=== PATIENT | female | born 1985 | race Caucasian/White ===

== ENCOUNTER 2020-09-24 09:36 | Outpatient (CLI) | payer SELFPAY | END 2020-09-24 09:37 | disposition home or self-care (01) | LOC: CHSOUTPT 09:38 | PROVIDERS: PCP Internal Medicine; Visit Provider Internal Medicine Endocrinology, Diabetes & Metabolism | DX: E11.65 Type 2 diabetes mellitus with hyperglycemia (principal) | CPT/HCPCS: 99199 ==

== ENCOUNTER 2021-06-27 14:48 | Outpatient (CLI) | payer OTHER, SELFPAY ==
[2021-06-27 15:34] LABS: SARS-CoV-2 Ag Negative (Negative)
== END 2021-06-27 14:49 | disposition home or self-care (01) ==
LOC: CHSLAB 14:51
PROVIDERS: PCP Internal Medicine; Visit Provider Nurse Practitioner Family
DX: Z20.822 Contact with and (suspected) exposure to COVID-19 (principal)
CPT/HCPCS: 87426; C9803

== ENCOUNTER 2021-08-27 13:25 | Outpatient (CLI) | payer OTHER, SELFPAY ==
[2021-08-27 14:32] LABS: SARS-CoV-2 RNA PCR Negative (Negative)
== END 2021-08-27 13:26 | disposition home or self-care (01) ==
PROVIDERS: PCP Internal Medicine; Visit Provider Internal Medicine
DX: Z20.822 Contact with and (suspected) exposure to COVID-19 (principal)
CPT/HCPCS: 87081; 87880; C9803; U0003; U0005

== ENCOUNTER 2021-09-16 14:32 | Outpatient (CLI) | payer OTHER, SELFPAY ==
--- NOTE | ~2021-09-16 | XR_ITS ---
EXAMINATION: XR chest 2V EXAM DATE: 09/16/2021 14:56 INDICATION: Chest pain, dyspnea, symptoms 3 days. TECHNIQUE: Frontal and lateral projections of the chest obtained and reviewed. Comparison is made to prior examination from 09/29/2017. FINDINGS: The lungs are clear. There are no pleural effusions. The cardiomediastinal silhouette is within normal limits. There is no pneumothorax suspected. The bones and soft tissues are unremarkab le. IMPRESSION: No acute cardiopulmonary findings. Reviewed, dictated and finalized at location A. [facility]
[2021-09-16 14:45] LABS: Basophils Absolute Auto 0.05 K/mm3 (0.00-0.10); Basophils Percent Auto 0.5 % (0.0-1.0); Hematocrit 37.7 % (35.0-49.0); Hemoglobin 13.2 g/dL (12.0-15.0); Immature Granulocyte Absolute 0.03 K/mm3 (0.00-0.00); Immature Granulocyte Percent A 0.3 % (0.0-0.0); Lymphocytes Absolute Auto 1.88 K/mm3 (1.10-4.50); Lymphocytes Percent Auto 18.7 % (18.0-42.0); Mean Corpuscular Hemoglobin 29.9 pg (27.0-31.0); Mean Corpuscular Volume 85.3 fL (78.0-102.0); Mean Platelet Volume 9.8 fl (9.2-11.8); Monocytes Absolute Auto 0.65 K/mm3 (0.10-0.90); Monocytes Percent Auto 6.5 % (2.0-11.0); Neutrophils Absolute Auto 7.2 K/mm3 (1.7-7.2); Platelet Count Result 357 K/mm3 (150-420); Red Blood Count 4.42 M/mm3 (4.20-5.40); Red Cell Distribution Width 12.1 % (11.6-14.4)
[2021-09-16 15:10] LABS: Alanine Aminotransferase 20 U/L (14-59); Alkaline Phosphatase 99 U/L (46-116); Anion Gap 4 mmol/L (8-16); Aspartate Amino Transferase 14 U/L (15-37); Bilirubin,Total 0.2 mg/dL (0.00-1.00); Blood Urea Nitrogen 21 mg/dL (7-18); Calcium 9.2 mg/dL (8.5-10.1); Carbon Dioxide 32 mmol/L (21-32); Chloride 101 mmol/L (98-108); Creatine Kinase 137 U/L (26-192); Estimated Glomerular Filt Rate > 60; Glucose 133 mg/dL (70-99); NT Pro B Type Natriuretic Pept 144 pg/mL (0-125); Osmolality Calculated 289 mOsm/kg (285-295); Potassium 4.4 mmol/L (3.5-5.1); Sodium 137 mmol/L (136-145); Total Protein 7.2 g/dL (6.4-8.2); Troponin I 4.1 ng/L (0.00-60.4)
[2021-09-16 15:11] LABS: D Dimer 0.38 mg/L (0.19-0.50)
== END 2021-09-16 14:33 | disposition home or self-care (01) ==
PROVIDERS: PCP Internal Medicine; Visit Provider Internal Medicine
DX: R07.9 Chest pain, unspecified (principal); R06.00 Dyspnea, unspecified
CPT/HCPCS: 36415; 71046; 80053; 82550; 82553; 83880; 84484; 85025; 85380

== ENCOUNTER 2021-11-17 09:15 | Outpatient (RCR) | payer OTHER, SELFPAY | END 2021-12-29 14:00 | disposition home or self-care (01) | LOC: ANHDMC 09:15 | PROVIDERS: PCP Internal Medicine; Visit Provider Internal Medicine Endocrinology, Diabetes & Metabolism | DX: E11.65 Type 2 diabetes mellitus with hyperglycemia (principal); Z71.89 Other specified counseling | CPT/HCPCS: G0108 ==

== ENCOUNTER 2022-01-27 15:38 | Outpatient (CLI) | payer OTHER, SELFPAY ==
--- NOTE | ~2022-01-27 | US_ITS ---
EXAMINATION: US venous doppler [facility] EXAM DATE: 01/27/2022 16:00 INDICATION: L lower leg swelling. TECHNIQUE: Multiple grayscale, color flow and Doppler images of the left lower extremity deep venous system were obtained and reviewed. There is no prior study for comparison. FINDINGS: The left common femoral, femoral and profunda veins demonstrate normal color flow, respirat ory variation, augmentation and compressibility. Compressibility, color flow confirmed within the le ft popliteal, posterior tibial, peroneal, and greater saphenous veins. IMPRESSION: 1. No left lower extremity deep venous thrombosis. Reviewed, dictated and finalized at location A.
[2022-01-27 15:57] LABS: Basophils Absolute Auto 0.04 K/mm3 (0.00-0.10); Basophils Percent Auto 0.5 % (0.0-1.0); Eosinophils Absolute Auto 0.66 K/mm3 (0.02-0.50); Eosinophils Percent Auto 8.1 % (1.0-6.0); Hematocrit 31.4 % (35.0-49.0); Hemoglobin 10.9 g/dL (12.0-15.0); Immature Granulocyte Absolute 0.03 K/mm3 (0.00-0.00); Immature Granulocyte Percent A 0.4 % (0.0-0.0); Lymphocytes Percent Auto 20.9 % (18.0-42.0); Mean Corpuscular HGB Conc 34.7 g/dL (32.0-36.0); Mean Corpuscular Hemoglobin 30.2 pg (27.0-31.0); Mean Platelet Volume 9.8 fl (9.2-11.8); Monocytes Absolute Auto 0.52 K/mm3 (0.10-0.90); Monocytes Percent Auto 6.4 % (2.0-11.0); Neutrophils Absolute Auto 5.2 K/mm3 (1.7-7.2); Neutrophils Percent Auto 63.7 % (50.0-70.0); Platelet Count Result 338 K/mm3 (150-420); Red Blood Count 3.61 M/mm3 (4.20-5.40); Red Cell Distribution Width 12.4 % (11.6-14.4); White Blood Count 8.1 K/mm3 (4.8-10.8)
[2022-01-27 17:21] LABS: Alanine Aminotransferase 22 U/L (14-59); Albumin Level 2.4 g/dL (3.4-5.0); Alkaline Phosphatase 111 U/L (46-116); Anion Gap 6 mmol/L (8-16); Aspartate Amino Transferase 19 U/L (15-37); Bilirubin,Total 0.2 mg/dL (0.00-1.00); Blood Urea Nitrogen 22 mg/dL (7-18); CRP < 0.5 mg/dL (0.0-0.9); Calcium 8.4 mg/dL (8.5-10.1); Carbon Dioxide 29 mmol/L (21-32); Chloride 104 mmol/L (98-108); Estimated Glomerular Filt Rate > 60; Glucose 170 mg/dL (70-99); Osmolality Calculated 295 mOsm/kg (285-295); Potassium 4.4 mmol/L (3.5-5.1); Sodium 139 mmol/L (136-145); Total Protein 5.9 g/dL (6.4-8.2)
[2022-01-29 11:31] LABS: Ferritin 139 ng/mL (8-252); Iron 50 ug/dL (50-170); Percent Iron Saturation 21 % (12-57)
[2022-02-03 13:50] LABS: Vitamin D 25 Hydroxy 23 ng/mL (30-100)
== END 2022-01-27 15:39 | disposition home or self-care (01) ==
LOC: CHSLAB 15:40
PROVIDERS: PCP Internal Medicine; Visit Provider Nurse Practitioner Family
DX: M79.89 Other specified soft tissue disorders (principal); D64.9 Anemia, unspecified; E58 Dietary calcium deficiency
CPT/HCPCS: 36415; 80053; 82306; 82728; 83540; 83550; 85025; 86140; 93971

== ENCOUNTER 2022-01-29 14:50 | Outpatient (CLI) | payer OTHER, SELFPAY ==
--- NOTE | ~2022-01-29 | XR_ITS ---
XR knee LT 3V DATE: 01/29/2022 15:12 INDICATION: Left knee pain and swelling. No known injury. TECHNIQUE: AP, lateral and sunrise views COMPARISON: None FINDINGS: Very prominent suprapatellar knee joint effusion. There is osteopenia. There is mild loss of height of medial compartment joint space. There is mild particular spurring at all 3 compartments. No radiopaque intra-articular loose body or chondrocalcinosis is noted. IMPRESSION: Very prominent suprapatellar knee joint effusion Moderate osteoarthritis, most prominent at the medial compartment Osteopenia Reviewed, dictated and finalized at location A.
== END 2022-01-29 14:51 | disposition home or self-care (01) ==
LOC: CHSIMG 14:51
PROVIDERS: PCP Internal Medicine; Visit Provider Nurse Practitioner Family
DX: M25.562 Pain in left knee (principal); M79.89 Other specified soft tissue disorders
CPT/HCPCS: 73562

== ENCOUNTER 2022-02-03 08:27 | Outpatient (CLI) | payer OTHER, SELFPAY ==
--- NOTE | ~2022-02-03 | US_ITS ---
EXAMINATION: US right upper quadrant DATE: 02/03/2022 09:04 INDICATION: Anemia TECHNIQUE: Multiple grayscale and Doppler ultrasound images of the abdomen were obtained. COMPARISON: None available FINDINGS: The head and body of the pancreas are normal. The pancreatic tail is obscured by bowel gas. The liver is normal with normal echogenicity and echotexture. No surface nodularity. Normal hepatope dara flow in the main portal vein. The gallbladder is normal with no abnormal wall thickening, pericho lecystic fluid or stones. The normal common bile duct measures 3 mm. There was no sonographic Sandoval sign. IMPRESSION: 1. No sonographic correlate for the patient's symptoms. Reviewed, dictated and finalized at location A.
--- NOTE | ~2022-02-03 | DEXA_ITS ---
Bone Density Report Name: JHON LEE Age: 36 Sex: Female Ethnicity: White Date of : 1985 Indication: hyperparathyroidism; Referring Provider: Brock, Vonda Bright Study: Bone densitometry was performed. Exam Date: February 03, 2022 Accession number: [id number] Bone Density: Region BMD T-score Z-score Classification AP Spine(L1-L4) 1.239 1.9 Femoral Neck (Left) 1.012 1.7 Total Hip (Left) 1.199 2.2 Femoral Neck (Right) 1.033 1.9 Total Hip (Right) 1.218 2.4 Femoral Neck Mean 1.023 1.8 Total Hip Mean 1.208 2.3 World Health Organization criteria for BMD impression classify patients as: Normal (T-score at or above -1.0), Osteopenia (T-score between -1.0 and -2.5), or Osteoporosis (T-score at or below -2.5). 10-year Fracture Risk: FRAX not reported because: Premenopausal woman Clinical Information Provided by Patient: Has used the following medications: Vitamin D Has the following medical conditions: Hyperparathyroidism Patient maximum height was 65 No regular weight bearing exercise Drinks caffeinated beverages Onset of menses at age 9 Premenopausal Number of children 0 Missed period for more than 6 months in a row Impression: The patient's bone mass is within expected range for age, gender and ethnicity. Discussion: BONE DENSITY IS WITHIN EXPECTED LIMITS FOR AGE, SEX AND RACE. Bone density is within expected limits for age, sex and race at all sites measured. The patient should follow a healthful lifestyle (good nutrition with adequate calcium and vitamin D, and appropriate weight-bearing exercise). Follow-Up: Consider repeating this study in 5 years or sooner if there is some new clinical indication. Reported by: Dr. Dk Arango on 02/03/2022 9:21:00 AM. Reviewed, dictated and finalized at location A. [facility]
[2022-02-03 08:57] LABS: Add Urine Microscopic? YES; Appearance Urine Clear (Clear); Bilirubin Urine Negative (Negative); Blood Urine 3+ (Negative); Color Urine Light Yellow (Yellow); Glucose Urine UA 3+ (Negative); Ketones Urine Negative (Negative); Leukocyte Esterase Ur Negative (Negative); Nitrate Urine Negative (Negative); Protein Urine 3+ (Negative); Specific Grav Ur 1.025 (1.010-1.020); Urobilinogen Urine 0.2 mg/dL (0.2-1.0)
[2022-02-03 09:04] LABS: INR 0.9; Partial Thromboplastin Time 28.8 SEC (23.90-30.70); Prothrombin Time 9.7 Seconds (9.50-12.10)
[2022-02-03 09:15] LABS: Squamous Epithelial Cell Urine Moderate /hpf (Few)
[2022-02-03 09:16] LABS: Bacteria Urine Trace /hpf; Budding Yeast Urine Present /hpf; Mucus Urine Few /lpf
[2022-02-03 10:09] LABS: CRP < 0.5 mg/dL (0.0-0.9)
[2022-02-03 10:09] LABS: MALB Creatinine Ratio 286.1 mg/g (0-30); Microalbumin Urine Random > 400.0 mg/L
== END 2022-02-03 08:28 | disposition home or self-care (01) ==
PROVIDERS: PCP Internal Medicine; Visit Provider Nurse Practitioner Family
DX: M81.0 Age-related osteoporosis without current pathological fracture (principal); D64.9 Anemia, unspecified
CPT/HCPCS: 36415; 76705; 77080; 81001; 82043; 85610; 85730; 86140

== ENCOUNTER 2022-03-24 09:56 | Outpatient (CLI) | payer OTHER, SELFPAY ==
[2022-03-24 17:51] LABS: SARS-CoV-2 RNA PCR Negative (Negative)
== END 2022-03-24 09:57 | disposition home or self-care (01) ==
LOC: CHSLAB 10:00
PROVIDERS: PCP Internal Medicine; Visit Provider Family Medicine
DX: Z01.818 Encounter for other preprocedural examination (principal); Z20.822 Contact with and (suspected) exposure to COVID-19
CPT/HCPCS: C9803; U0003; U0005

== ENCOUNTER 2022-05-07 10:15 | Outpatient (RCR) | payer OTHER, SELFPAY | END 2022-05-11 10:32 | disposition home or self-care (01) | LOC: ANHDMC 10:15 | PROVIDERS: PCP Internal Medicine; Visit Provider Internal Medicine Endocrinology, Diabetes & Metabolism | DX: E11.65 Type 2 diabetes mellitus with hyperglycemia (principal); Z71.89 Other specified counseling | CPT/HCPCS: G0108 ==

== ENCOUNTER 2022-05-12 09:00 | Outpatient (CLI) | payer OTHER, SELFPAY ==
--- NOTE | ~2022-05-12 | NM_ITS ---
EXAM: NM gastric emptying study DATE: 05/12/2022 13:54 INDICATION: Nausea TECHNIQUE: A gastric emptying study was performed using the methodology of Kathy BROCK, et al. J Nucl Med 2007; 48:568-572. The patient was given a meal consisting of 2 scrambled eggs labeled with 1.05 mCi Tc-99m sulfur colloid, 2 slices of toast, two packages of jam, and approximately 120 mL of water. Simultaneous anterior and posterior 1-min images of the abdomen were obtained with the patient supin e at multiple time points over a total period of 4 hours. The geometric mean of anterior and posterio r views was determined, and the percentage retention was calculated for each time point. COMPARISON: None. FINDINGS: Gastric retention of the radiotracer-labeled meal was 50%, 22%, and 4% at the 1-hour, 2-hour, and 4-h our time points, respectively. With this technique, apparent rapid gastric emptying is suggested by < 30% gastric retention at 1 hour. Delayed gastric emptying is defined by gastric retention of >90% at 1 hour, >60% retention at 2 hours, or >10% retention at 4 hours. IMPRESSION: 1. Normal gastric emptying. Reviewed, dictated and finalized at location A. IMPRESSION: 1. Normal gastric emptying.
== END 2022-05-12 09:01 | disposition home or self-care (01) ==
PROVIDERS: PCP Internal Medicine; Visit Provider Internal Medicine Endocrinology, Diabetes & Metabolism
DX: R11.0 Nausea (principal)
CPT/HCPCS: 78264; A9541

== ENCOUNTER 2022-05-20 15:17 | Outpatient (CLI) | payer OTHER, SELFPAY ==
[2022-05-20 16:15] LABS: Influenza A QL RT-PCR Negative (Negative); Influenza B QL RT-PCR Negative (Negative); SARS-CoV-2 RNA PCR Positive (Negative)
== END 2022-05-20 15:18 | disposition home or self-care (01) ==
LOC: CHSLAB 15:19
PROVIDERS: PCP Internal Medicine; Visit Provider Internal Medicine
DX: U07.1 COVID-19 (principal); R05.9 Cough, unspecified
CPT/HCPCS: 87502; C9803; U0003; U0005

== ENCOUNTER 2022-09-24 12:30 | Outpatient (RCR) | payer OTHER, SELFPAY | END 2022-12-16 07:41 | disposition home or self-care (01) | LOC: ANHDMC 12:30 | PROVIDERS: PCP Internal Medicine; Visit Provider Internal Medicine Endocrinology, Diabetes & Metabolism | DX: E11.65 Type 2 diabetes mellitus with hyperglycemia (principal) | CPT/HCPCS: 99199 ==

== ENCOUNTER 2022-12-02 12:43 | Outpatient (CLI) | payer OTHER, SELFPAY ==
[2022-12-02 12:58] LABS: Basophils Absolute Auto 0.02 K/mm3 (0.00-0.10); Basophils Percent Auto 0.2 % (0.0-1.0); Eosinophils Absolute Auto 0.17 K/mm3 (0.02-0.50); Hematocrit 33.2 % (35.0-49.0); Immature Granulocyte Absolute 0.03 K/mm3 (0.00-0.00); Immature Granulocyte Percent A 0.3 % (0.0-0.0); Lymphocytes Percent Auto 16.2 % (18.0-42.0); Mean Corpuscular HGB Conc 33.1 g/dL (32.0-36.0); Mean Corpuscular Hemoglobin 29.2 pg (27.0-31.0); Mean Corpuscular Volume 88.1 fL (78.0-102.0); Mean Platelet Volume 9.4 fl (9.2-11.8); Monocytes Absolute Auto 0.38 K/mm3 (0.10-0.90); Monocytes Percent Auto 4.4 % (2.0-11.0); Neutrophils Absolute Auto 6.7 K/mm3 (1.7-7.2); Neutrophils Percent Auto 76.9 % (50.0-70.0); Platelet Count Result 377 K/mm3 (150-420); Red Blood Count 3.77 M/mm3 (4.20-5.40); Red Cell Distribution Width 13.7 % (11.6-14.4); White Blood Count 8.7 K/mm3 (4.8-10.8)
[2022-12-02 13:41] LABS: Alanine Aminotransferase 35 U/L (14-59); Albumin Level 1.8 g/dL (3.4-5.0); Alkaline Phosphatase 88 U/L (46-116); Anion Gap 4 mmol/L (8-16); Aspartate Amino Transferase 43 U/L (15-37); Bilirubin,Total 0.2 mg/dL (0.00-1.00); Blood Urea Nitrogen 24 mg/dL (7-18); Calcium 8.2 mg/dL (8.5-10.1); Carbon Dioxide 30 mmol/L (21-32); Chloride 108 mmol/L (98-108); Estimated Glomerular Filt Rate 41; Free T4 Free Thyroxine 0.96 ng/dL (0.76-1.46); Glucose 114 mg/dL (70-99); Magnesium 1.7 mg/dL (1.8-2.4); NT Pro B Type Natriuretic Pept 2603 pg/mL (0-125); Osmolality Calculated 299 mOsm/kg (285-295); Potassium 4.2 mmol/L (3.5-5.1); Sodium 142 mmol/L (136-145); Thyroid Stimulating Hormone 4.21 uIU/mL (0.36-3.74); Total Protein 5.1 g/dL (6.4-8.2)
[2022-12-02 13:43] LABS: CRP < 0.5 mg/dL (0.0-0.9)
[2022-12-02 15:57] LABS: Add Urine Microscopic? YES; Appearance Urine Slightly Cloudy (Clear); Bilirubin Urine 1+ (Negative); Blood Urine 3+ (Negative); Color Urine Yellow (Yellow); Glucose Urine UA 1+ (Negative); Ketones Urine Trace (Negative); Leukocyte Esterase Ur Negative (Negative); Nitrate Urine Negative (Negative); Protein Urine 3+ (Negative); Specific Grav Ur 1.025 (1.010-1.020); Urobilinogen Urine 0.2 mg/dL (0.2-1.0); pH Urine 6.5 (5.0-8.0)
[2022-12-02 16:00] LABS: Creatinine Urine 270.92 mg/dL (40-278)
[2022-12-02 16:01] LABS: Renal Epithelial Cells Urine Moderate /hpf; Squamous Epithelial Cell Urine Moderate /hpf (Few)
[2022-12-02 16:02] LABS: Bacteria Urine 3+ /hpf
[2022-12-02 16:41] LABS: Ferritin 147 ng/mL (8-252); Iron 47 ug/dL (50-170); Percent Iron Saturation 24 % (12-57)
[2022-12-02 16:46] LABS: MALB Creatinine Ratio 147.6 mg/g (0-30); Microalbumin Urine Random > 400.0 mg/L
[2022-12-02 17:01] LABS: Erythrocyte Sedimentation Rate 55 mm/hr (0-15)
== END 2022-12-02 12:44 | disposition home or self-care (01) ==
PROVIDERS: PCP Internal Medicine; Visit Provider Nurse Practitioner Family
DX: R51.9 Headache, unspecified (principal); M79.89 Other specified soft tissue disorders; E11.9 Type 2 diabetes mellitus without complications; E03.9 Hypothyroidism, unspecified; D64.9 Anemia, unspecified
CPT/HCPCS: 36415; 80053; 81001; 82043; 82728; 83540; 83550; 83735; 83880; 84439; 84443; 85025; 85652; 86140; 87086

== ENCOUNTER 2023-01-01 13:22 | Outpatient (CLI) | payer OTHER, SELFPAY ==
--- NOTE | 2023-01-01 14:19 | ECHO_ITS ---
Patient Info Name: Ailyn Tran Age: 37 years : 1985 Gender: Female Ht: 66 in Wt: 224 lbs BSA: 2.22 m2 HR: 92 bpm BP: 185 / 105 mmHg Technical Quality: Good Exam Date: 01/01/2023 2:29 PM Exam Location: [facility] EM[facility] Patient Status: Outpatient Admit Date: 01/01/2023 Staff Ordering Physician: Carlos Enrique Posada MD Macadam Raker: Jermaine Sandoval RDCS, RT Attending Provider: Carlos Enrique Posada MD Exam Type: CA echo doppler color flow Study Info Indications I50.9 - Heart failure, unspecified Complete two-dimensional, color flow and Doppler transthoracic echocardiogram is performed. Strain analysis performed. Summary 1. Complete two-dimensional, color flow and Doppler transthoracic echocardiogram is performed. 2. Left ventricular chamber dimension is normal. 3. Left ventricular systolic function is normal, estimated at 60-65%. 4. There is moderate concentric increased left ventricular wall thickness. 5. The left ventricular diastolic function is grade I diastolic dysfunction. 6. E/e' 10 is mildly elevated. 7. Global longitudinal strain is abnormal at -14.9%. 8. Left atrial chamber dimension is mildly enlarged. 9. There is mild mitral valve regurgitation. 10. There is trace tricuspid valve regurgitation. Left Ventricle E/e' 10 is mildly elevated. Global longitudinal strain is abnormal at -14.9%. Left ventricular chamber dimension is normal. Left ventricular systolic function is normal, estimated at 60-65%. There is moderate concentric increased left ventricular wall thickness. The left ventricular diastolic function is grade I diastolic dysfunction. Right Ventricle Right ventricular systolic function is normal and with normal TAPSE 2.6 cm. Right ventricular chamber dimension is normal. Left Atria Left atrial chamber dimension is mildly enlarged. Right Atria Right atrial chamber dimension is normal. Aortic Valve The aortic valve is trileaflet. There is no aortic valve stenosis. There is no aortic valve regurgitation. Pulmonic Valve There is no pulmonic regurgitation. Mitral Valve There is no mitral valve stenosis. There is mild mitral valve regurgitation. Tricuspid Valve RVSP is not calculated due to an inadequate TR jet. There is trace tricuspid valve regurgitation. Pericardium/Pleural There is no pericardial effusion. Inferior Vena Cava Normal inferior vena cava with >50% collapse upon inspiration consistent with normal right atrial pressure, 5 mmHg. Aorta The aortic root size at the sinus of Valsalva is normal. Left Ventricular Outflow Tract Name Value Normal LVOT 2D LVOT Diameter 2.0 cm LVOT Doppler LVOT Peak Velocity 95 cm/s LVOT Peak Gradient 4 mmHg LVOT Mean Gradient 2 mmHg LVOT VTI 19 cm LVOT VTI/AV VTI Ratio 0.7 LVOT Stroke Volume 59 ml Mitral Valve Name Value Normal
== END 2023-01-01 13:23 | disposition home or self-care (01) ==
LOC: CHSIMG 13:24
PROVIDERS: PCP Internal Medicine; Visit Provider Internal Medicine
DX: I50.9 Heart failure, unspecified (principal); I51.7 Cardiomegaly
CPT/HCPCS: 93306

== ENCOUNTER 2023-07-03 21:12 | Emergency (ER) | payer OTHER, SELFPAY ==
--- NOTE | ~2023-07-03 | CT_ITS ---
EXAMINATION: CT abdomen pelvis w con DATE: 07/03/2023 22:50 INDICATION: Abdominal pain, nausea and vomiting TECHNIQUE: Computed tomography (CT) of the abdomen and pelvis was performed with 100 CC Omnipaque 350 intravenous contrast. Automated exposure control and iterative reconstruction technique were employe d. Exam dose: 1419.67 mGy-cm total exam DLP. COMPARISON: None. FINDINGS: Minimal groundglass infiltrate and/atelectasis in the lower lung zones. No pleural effusion or pericardial effusion. Heart size is within normal range. The gallbladder is distended but no gallbladder wall thickening or pericholecystic fluid or fat stran ding is noted. No bile duct or pancreatic duct dilatation. 4 mm lateral segment left hepatic cyst. The liver is otherwise unremarkable. No pancreatic mass lesio n or calcification. Normal splenic size. Normal morphology of the adrenal glands. Approximately 1.9 cm right renal cyst no other renal mass lesion is noted. No urinary tract calculus or hydroureteronephrosis. The urinary bladder is unremarkable. There is an IUD within the uterus. 5.5 x 5.3 cm left ovarian cystic lesion. Consider pelvic ultrasound for further evaluation as clinica lly appropriate. Normal appendix. There is prominent of fecal material in the rectum and colon but no bowel obstruction is detected. No intraperitoneal free air. Normal caliber of the abdominal aorta. No intraperitoneal or retroperitoneal or pelvic mass lesion or adenopathy or ascites. The uterus 07/03/2023 Small fat-containing umbilical hernia. No suspicious osteolytic or osteoblastic lesions. IMPRESSION: 5.5 x 5.3 cm left ovarian cystic lesion; consider pelvic ultrasound for further evaluati on as clinically appropriate Normal appendix 4 mm left hepatic cyst 1.9 cm right renal cyst Reviewed, dictated and finalized at Location A. Reviewed, dictated and finalized at location A. IMPRESSION: 5.5 x 5.3 cm left ovarian cystic lesion; consider pelvic ultrasoun d for further evaluation as clinically appropriate Normal appendix 4 mm left hepatic cyst 1.9 cm right renal cyst
[2023-07-03 21:25] VITALS: BP 210/110; PULSE 113; RESP 20; TEMP 37.5; O2SAT 98
--- NOTE | 2023-07-03 21:27 | ECG_ITS ---
Measurements Intervals [place] Rate: 107 P: 26 DC: 131 QRS: 5 QRSD: 87 T: 62 QT: 333 QTc: 444 Interpretive Statements SINUS TACHYCARDIA INCOMPLETE RIGHT BUNDLE BRANCH BLOCK LOW QRS VOLTAGE IN PRECORDIAL LEADS BORDERLINE ECG NO PREVIOUS ECG AVAILABLE FOR COMPARISON Electronically Signed On 07-04-2023 7:12:49 CDT by Harmeet Braga D.O.
[2023-07-03 22:01] LABS: Basophils Absolute Auto 0.06 K/mm3 (0.00-0.10); Basophils Percent Auto 0.5 % (0.0-1.0); Eosinophils Absolute Auto 0.23 K/mm3 (0.02-0.50); Hematocrit 31.6 % (35.0-49.0); Hemoglobin 10.6 g/dL (12.0-15.0); Immature Granulocyte Absolute 0.05 K/mm3 (0.00-0.00); Immature Granulocyte Percent A 0.4 % (0.0-0.0); Lymphocytes Absolute Auto 0.52 K/mm3 (1.10-4.50); Lymphocytes Percent Auto 4.4 % (18.0-42.0); Mean Corpuscular HGB Conc 33.5 g/dL (32.0-36.0); Mean Corpuscular Hemoglobin 29.3 pg (27.0-31.0); Mean Corpuscular Volume 87.3 fL (78.0-102.0); Monocytes Absolute Auto 0.55 K/mm3 (0.10-0.90); Monocytes Percent Auto 4.7 % (2.0-11.0); Neutrophils Absolute Auto 10.3 K/mm3 (1.7-7.2); Platelet Count Result 338 K/mm3 (150-420); Red Blood Count 3.62 M/mm3 (4.20-5.40); Red Cell Distribution Width 12.5 % (11.6-14.4); White Blood Count 11.7 K/mm3 (4.8-10.8)
[2023-07-03] MEDS: ONDANSETRON INJ 4 MG/2 ML VIAL IV PUSH (22:04)
[2023-07-03] MEDS: SODIUM CHLORIDE 0.9% IV 500 ML 999 ML IV CONT (22:05)
[2023-07-03] MEDS: MORPHINE SULFATE (*CRX) 2 MG/ML INJ IV PUSH (22:05)
[2023-07-03 22:15] VITALS: BP 167/94; PULSE 78; RESP 18; O2SAT 96
[2023-07-03 22:18] LABS: Alanine Aminotransferase 28 U/L (14-59); Albumin Level 1.7 g/dL (3.4-5.0); Alkaline Phosphatase 122 U/L (46-116); Anion Gap 8 mmol/L (8-16); Aspartate Amino Transferase 20 U/L (15-37); Bilirubin,Total 0.2 mg/dL (0.00-1.00); Blood Urea Nitrogen 32 mg/dL (7-18); Calcium 8.2 mg/dL (8.5-10.1); Carbon Dioxide 23 mmol/L (21-32); Chloride 104 mmol/L (98-108); Estimated CRCL calculation 46 ml/min; Estimated Glomerular Filt Rate 32; Glucose 212 mg/dL (70-99); Lactic Acid Reflex 0.9 mmol/L (0.4-2.0); Lipase 14 U/L (16-77); Osmolality Calculated 292 mOsm/kg (285-295); Potassium 4.2 mmol/L (3.5-5.1); Sodium 135 mmol/L (136-145); Total Protein 5.7 g/dL (6.4-8.2)
[2023-07-03 22:29] LABS: INR 0.9; Partial Thromboplastin Time 29.4 SEC (23.90-30.70)
[2023-07-03 22:38] LABS: Influenza A QL RT-PCR Negative (Negative); Influenza B QL RT-PCR Negative (Negative); SARS-CoV-2 RNA PCR Negative (Negative)
[2023-07-03 22:40] LABS: RSV RNA, RT-PCR Negative (Negative)
[2023-07-03 22:48] VITALS: BP 178/108
--- NOTE | 2023-07-03 22:52 | ED.ABDPAIN ---
HPI - Abdominal Pain General Chief Complaint: Abdominal Pain Stated Complaint: nausea, vomiting, abd pain Time Seen by Provider: 07/03/23 21:15 Source: patient Mode of arrival: ambulatory Limitations: no limitations History of Present Illness HPI narrative: This is a 37-year-old female with history of diabetes presents with abdominal pain started earlier this morning diffuse with no flank pain no chest pain no shortness of breath no fever chills with nausea with no vomiting no dysuria or hematuria no fever chills. MD elicited complaint: abdominal pain Pertinent past history: none Onset (ago): hour(s) Pain Consistency: intermittent Location: diffuse and periumbilical Severity: moderate Quality: cramping Related Data Home Medications Medication Instructions Recorded Confirmed cholecalciferol (vitamin D3) 10 400 unit PO DAILY 10/05/19 07/03/23 mcg (400 unit) capsule escitalopram oxalate 5 mg tablet 5 mg PO DAILY 10/05/19 07/03/23 semaglutide 1 mg/dose (2 mg/1.5 1 mg subcut WEEKLY 05/27/21 07/03/23 mL) subcutaneous pen injector (Le[employer] Globalempic) atorvastatin 40 mg tablet 40 mg PO DAILY 01/26/23 07/03/23 blood-glucose sensor (Dexcom G6 01/26/23 07/03/23 Sensor device) insulin lispro 100 unit/mL 1 sliding scale dose subcut 01/26/23 07/03/23 subcutaneous cartridge (Humalog USEASDIRECTD U-100 Insulin) levonorgestrel 21 mcg/24 hours (8 1 device intrauterine ONCE 01/26/23 07/03/23 yrs) 52 mg intrauterine device (Mirena) losartan 25 mg tablet 75 mg PO DAILY 01/26/23 07/03/23 metformin 500 mg tablet 500 mg PO BID 01/26/23 07/03/23 torsemide 20 mg tablet 20 mg PO QAM 01/26/23 07/03/23 verapamil 120 mg 24 hr 120 mg PO DAILY 01/26/23 07/03/23 capsule,extended release levothyroxine 112 mcg tablet 112 mcg PO DAILY 07/03/23 07/03/23 (Synthroid) Allergies Allergy/AdvReac Type Severity Reaction Status Date / Time hydrocodone Allergy Severe Other Verified 01/26/23 09:08 tramadol Allergy Severe Vomiting Verified 01/26/23 09:08 ibuprofen AdvReac Intermediate Unknown Verified 01/26/23 09:08 tylenol 3 AdvReac Intermediate Nausea Uncoded 01/26/23 09:08 Review of Systems Review of Systems: All systems reviewed & are unremarkable except as noted in HPI and below PMFSH Past Medical History Medical History Depression Hyperlipidemia Hypertension Kidney disease Thyroid disorder Type II diabetes mellitus Surgical History Surgical History H/O LEEP 08/24/2018 Family History Family History Grandparent Family history of thyroid disease Family history of Alzheimer's disease Diabetes mellitus Family history of Parkinson's disease Father Hypertension Family history of type 2 diabetes mellitus Sibling Family history of attention deficit hyperactivity disorder (ADHD) Social History Social History Smoking status: Never smoker Second hand tobacco smoke exposure: No Alcohol intake: current Alcohol use details: Social Substance use: never Lack of Transportation: No Lack of Food: Never True Concerned About Future Housing: No Difficulty Paying Gas/Electric Bills: No Difficulty Paying for Meds: No Currently Unemployed: No Education: High School Diploma/GED Living arrangements: alone Occupation/Education: occupation Gender identity (if verbalized by the patient): Female Sexual Orientation (if Verbalized by the Patient): Straight or Heterosexual Spiritual care concerns: No Exam Const: General: healthy appearing Nutritional Appearance: well nourished Orientation/consciousness: patient oriented x3 Limitations: no limitations HENMT: Head: normal to inspection Eyes: Conjunctivae: conjunctivae normal Pupils: Equal, round and reactive pupils present EOM: E
--- NOTE | 2023-07-03 23:00 | PC.NURSE ---
Pt resting, call gonzalez at side, awaiting labs and CT results. Pt aware of wait times.
[2023-07-03 23:01] VITALS: BP 170/94
[2023-07-03 23:16] VITALS: BP 157/90; PULSE 78; O2SAT 96
[2023-07-03 23:31] VITALS: BP 176/103
[2023-07-04 00:16] VITALS: BP 167/94; PULSE 74; RESP 20; O2SAT 97
[2023-07-04 01:01] VITALS: BP 157/89; PULSE 85; RESP 18; O2SAT 96
--- NOTE | 2023-07-04 01:02 | PC.NURSE ---
Pt resting, watching TV, reports her pain and cramping is much better. Pt informed on wait time for CT is another 30 min to 1 hr. Pt has ice chips and call gonzalez at side, has no c/o at this time.
[2023-07-04 01:39] VITALS: BP 148/85; PULSE 78; RESP 18; TEMP 36.6; O2SAT 99
[2023-07-05 14:03] LABS: NT Pro B Type Natriuretic Pept 781 pg/mL (0-125)
== END 2023-07-04 01:45 | disposition home or self-care (01) ==
PROVIDERS: Emergency Provider Emergency Medicine; PCP Internal Medicine
DX: N83.201 Unspecified ovarian cyst, right side (principal); R10.9 Unspecified abdominal pain; E11.9 Type 2 diabetes mellitus without complications; E78.5 Hyperlipidemia, unspecified; I10 Essential (primary) hypertension; Z79.899 Other long term (current) drug therapy; Z79.4 Long term (current) use of insulin; Z20.822 Contact with and (suspected) exposure to COVID-19
CPT/HCPCS: 36415; 74177; 80053; 83605; 83690; 83880; 84484; 85025; 85610; 85730; 87637; 93005; 96374; 96375; 99284; J2270; J2405; J7040; Q9967

== ENCOUNTER 2023-07-09 19:11 | Emergency (ER) | payer OTHER, SELFPAY ==
[2023-07-09 19:12] VITALS: BP 160/96; PULSE 98; RESP 18; TEMP 36.9; O2SAT 100
--- NOTE | 2023-07-09 19:19 | ED.WOUNDLAC ---
HPI - Wound/Laceration General Chief Complaint: Wound/Laceration Stated Complaint: Right Toe Wound Time Seen by Provider: 07/09/23 19:19 Source: patient and RN notes reviewed Mode of arrival: ambulatory Limitations: no limitations History of Present Illness Onset (ago): day(s) (2) Extremity Location: Right: foot Place: home Patient tetanus UTD: Yes Context: other ( Had a cut 6 weeks ago) Associated symptoms: none Related Data Home Medications Medication Instructions Recorded Confirmed cholecalciferol (vitamin D3) 10 400 unit PO DAILY 10/05/19 07/09/23 mcg (400 unit) capsule escitalopram oxalate 5 mg tablet 5 mg PO DAILY 10/05/19 07/09/23 semaglutide 1 mg/dose (2 mg/1.5 1 mg subcut WEEKLY 05/27/21 07/09/23 mL) subcutaneous pen injector (Ozempic) atorvastatin 40 mg tablet 40 mg PO DAILY 01/26/23 07/09/23 blood-glucose sensor (Dexcom G6 01/26/23 07/09/23 Sensor device) insulin lispro 100 unit/mL 1 sliding scale dose subcut 01/26/23 07/09/23 subcutaneous cartridge (Humalog USEASDIRECTD U-100 Insulin) levonorgestrel 21 mcg/24 hours (8 1 device intrauterine ONCE 01/26/23 07/09/23 yrs) 52 mg intrauterine device (Mirena) losartan 25 mg tablet 75 mg PO DAILY 01/26/23 07/09/23 metformin 500 mg tablet 500 mg PO BID 01/26/23 07/09/23 torsemide 20 mg tablet 20 mg PO QAM 01/26/23 07/09/23 verapamil 120 mg 24 hr 120 mg PO DAILY 01/26/23 07/09/23 capsule,extended release levothyroxine 112 mcg tablet 112 mcg PO DAILY 07/03/23 07/09/23 (Synthroid) Allergies Allergy/AdvReac Type Severity Reaction Status Date / Time hydrocodone Allergy Severe Other Verified 01/26/23 09:08 tramadol Allergy Severe Vomiting Verified 01/26/23 09:08 ibuprofen AdvReac Intermediate Unknown Verified 01/26/23 09:08 tylenol 3 AdvReac Intermediate Nausea Uncoded 01/26/23 09:08 Review of Systems Review of Systems: All systems reviewed & are unremarkable except as noted in HPI and below Constitutional: Constitutional: Denies chills and Denies fever(s) PMFSH Past Medical History Medical History (Updated 07/09/23 @ 20:41 by Conor Velasquez MD) Body mass index [BMI] 31.0-31.9, adult (03/15/19) Depression Hyperlipidemia Hypertension Kidney disease Thyroid disorder Type II diabetes mellitus Surgical History Surgical History H/O LEEP 08/24/2018 Family History Family History Grandparent Family history of thyroid disease Family history of Alzheimer's disease Diabetes mellitus Family history of Parkinson's disease Father Hypertension Family history of type 2 diabetes mellitus Sibling Family history of attention deficit hyperactivity disorder (ADHD) Social History Social History Smoking status: Never smoker Second hand tobacco smoke exposure: No Alcohol intake: current Alcohol use details: Social Substance use: never Lack of Transportation: No Lack of Food: Never True Concerned About Future Housing: No Difficulty Paying Gas/Electric Bills: No Difficulty Paying for Meds: No Currently Unemployed: No Education: High School Diploma/GED Living arrangements: alone Occupation/Education: occupation Gender identity (if verbalized by the patient): Female Sexual Orientation (if Verbalized by the Patient): Straight or Heterosexual Spiritual care concerns: No Exam Const: General: healthy appearing, no acute distress and alert Nutritional Appearance: well nourished and obese Orientation/consciousness: patient oriented x3 Limitations: no limitations HENMT: Head: normal to inspection Ears: external ears normal Face/Nose/Sinus: Normal external nose present Face and sinus: normal facial exam Mouth: Yes moist mucous membranes Eyes: Conjunctivae: conjunctivae normal Pupils: Equal, round and reactive pupils present EOM: EOMs int
[2023-07-09 19:20] LABS: Glucose Point of Care 131 mg/dl (65-105)
[2023-07-09] MEDS: CEPHALEXIN 500 MG CAPSULE PO (19:40)
== END 2023-07-09 19:43 | disposition home or self-care (01) ==
PROVIDERS: Emergency Provider Emergency Medicine; PCP Internal Medicine
DX: L03.031 Cellulitis of right toe (principal); E78.5 Hyperlipidemia, unspecified; I10 Essential (primary) hypertension; E11.9 Type 2 diabetes mellitus without complications; Z79.4 Long term (current) use of insulin
CPT/HCPCS: 82948; 99283; A9270

== ENCOUNTER 2023-09-28 19:53 | Emergency (ER) | payer OTHER, SELFPAY ==
[2023-09-28 20:05] VITALS: BP 161/103; PULSE 99; RESP 18; TEMP 36.7; O2SAT 100
--- NOTE | 2023-09-28 20:13 | ED.ALLEREA ---
HPI - Allergic Reaction General Chief complaint: Allergic Reaction Stated complaint: Allergic Reaction Time Seen by Provider: 09/28/23 20:12 Source: patient Mode of arrival: ambulatory Limitations: no limitations History of Present Illness HPI narrative: 38 year old female presents to the Emergency Department complaining of allergic reaction. Patient states she took Tylenol #3 for dental pain and has been itching since 3:30 pm. Did not take anything for itching. She had questionable allergy to Tylenol #3 in past (nausea), but this time began itching. She took 2nd dose later to confirm and itching became worse. Denies any difficulty breathing or tightness in throat. Denies rash or hives. Just has itching. MD complaint: allergic reaction Onset (ago): hour(s) (5) Exposure: medication (tylenol #3) Symptoms: itching Treatment prior to arrival: none Previous Allergic Reaction History: other (just had nausea prio) Related Data Home Medications Medication Instructions Recorded Confirmed cholecalciferol (vitamin D3) 10 400 unit PO DAILY 10/05/19 09/28/23 mcg (400 unit) capsule escitalopram oxalate 5 mg tablet 5 mg PO DAILY 10/05/19 09/28/23 semaglutide 1 mg/dose (2 mg/1.5 1 mg subcut WEEKLY 05/27/21 09/28/23 mL) subcutaneous pen injector (Ozempic) atorvastatin 40 mg tablet 40 mg PO DAILY 01/26/23 09/28/23 blood-glucose sensor (Dexcom G6 01/26/23 09/28/23 Sensor device) insulin lispro 100 unit/mL 1 sliding scale dose subcut 01/26/23 09/28/23 subcutaneous cartridge (Humalog USEASDIRECTD U-100 Insulin) levonorgestrel 21 mcg/24 hours (8 1 device intrauterine ONCE 01/26/23 09/28/23 yrs) 52 mg intrauterine device (Mirena) losartan 25 mg tablet 75 mg PO DAILY 01/26/23 09/28/23 metformin 500 mg tablet 500 mg PO BID 01/26/23 09/28/23 torsemide 20 mg tablet 20 mg PO QAM 01/26/23 09/28/23 verapamil 120 mg 24 hr 120 mg PO DAILY 01/26/23 09/28/23 capsule,extended release levothyroxine 112 mcg tablet 112 mcg PO DAILY 07/03/23 09/28/23 (Synthroid) Allergies Allergy/AdvReac Type Severity Reaction Status Date / Time hydrocodone Allergy Severe Other Verified 01/26/23 09:08 tramadol Allergy Severe Vomiting Verified 01/26/23 09:08 ibuprofen AdvReac Intermediate Unknown Verified 01/26/23 09:08 tylenol 3 AdvReac Intermediate Itching Uncoded 09/28/23 20:07 Review of Systems Review of Systems: All systems reviewed & are unremarkable except as noted in HPI and below Constitutional: Constitutional: Reports as per HPI, Reports no additional constitutional complaints, Denies chills and Denies fever(s) Eyes: Eyes: Reports as per HPI and Reports no additional eye complaints ENT: Reports system reviewed and no additional complaints, except as documented Cardiovascular: Cardiovascular: Reports as per HPI, Reports no additional cardiovascular complaints and Denies chest pain Respiratory: Respiratory: Reports as per HPI, Reports no additional respiratory complaints, Denies dyspnea and Denies wheezing Gastrointestinal: Gastrointestinal: Reports as per HPI, Reports no additional gastrointestinal complaints, Denies nausea and Denies vomiting Genitourinary: Genitourinary: Reports no additional female genitourinary complaints Musculoskeletal: Musculoskeletal: Reports no additional musculoskeletal complaints and Denies joint swelling Integumentary/Breasts: Skin/Breast: Reports system reviewed and no additional complaints, except as docu, Reports pruritus, Denies erythema and Denies rash Neurologic: Reports system reviewed and no additional complaints, except as documented Allergic/Immunologic: Allergic/Immunologic: Reports no additional allergic/immunologic complaints, Reports as per HPI, Denies lip swelling, Denies throat swelling, Denies tongue swelling and Denies wheezing PMFSH Past Medical History Medical History Body mass index [BMI] 31.0-31.9, adult (03/15/19) Depressi
[2023-09-28] MEDS: diphenhydrAMINE HCl INJ 50 MG/ML VIAL 100 MG IM (20:22)
[2023-09-28] MEDS: ONDANSETRON HCL ODT 4 MG TABLET PO (20:34)
== END 2023-09-28 20:39 | disposition home or self-care (01) ==
PROVIDERS: Emergency Provider Emergency Medicine; PCP Internal Medicine
DX: L29.9 Pruritus, unspecified (principal); T39.1X5A Adverse effect of 4-Aminophenol derivatives, initial encounter; E78.5 Hyperlipidemia, unspecified; I10 Essential (primary) hypertension; E11.9 Type 2 diabetes mellitus without complications; Z79.899 Other long term (current) drug therapy; Z79.84 Long term (current) use of oral hypoglycemic drugs
CPT/HCPCS: 96372; 99283; A9270; J1200

== ENCOUNTER 2024-07-17 07:51 | Outpatient (CLI) | payer OTHER, SELFPAY ==
--- NOTE | ~2024-07-17 | US_ITS ---
Limited Abdominal Sonogram: Real-time sonographic imaging of the right upper quadrant was performed. Clinical History: Abdominal pain Findings: The liver appears mildly heterogeneous, with no evidence of mass lesion or bile duct dilat ation. Main portal vein demonstrates normal direction of flow. The gallbladder is well distended, and appears normal with no evidence of gallstone or wall thickening. The common bile duct measures 3 mm. The visualized pancreas, aorta, and IVC are unremarkable. Impression: Possible fatty infiltration of liver. Reviewed, dictated and finalized at location M. Impression: Possible fatty infiltration of liver.
== END 2024-07-17 07:52 | disposition home or self-care (01) ==
PROVIDERS: PCP Internal Medicine; Visit Provider Internal Medicine
DX: R10.9 Unspecified abdominal pain (principal)
CPT/HCPCS: 76705

== ENCOUNTER 2024-07-19 18:29 | Observation (INO) | payer OTHER, SELFPAY ==
[2024-07-19] VITALS (20 sets, daily range): BP systolic 149–206; BP diastolic 98–124; PULSE 103–109; RESP 11–32; TEMP 36.3–36.6; O2SAT 97–100; BMI 36.9
--- NOTE | ~2024-07-19 | CT_ITS ---
EXAMINATION: CT abdomen pelvis wo con DATE: 07/19/2024 19:41 INDICATION: right upper quadrant pain TECHNIQUE: Computed tomography (CT) of the abdomen and pelvis was performed without intravenous contr ast. Automated exposure control and iterative reconstruction technique were employed. The dose-length product was 1283.89 mGy-cm. COMPARISON: Coronary artery calcification. FINDINGS: Lower thorax: Unremarkable Liver: Subcentimeter left lobe hypodensity, likely cyst or hemangioma. Biliary/Gallbladder: Gallbladder is distended. No stones or inflammatory change. No bile duct dilatio n. Pancreas: Moderate fatty atrophy, with sparing at the pancreatic tail. Spleen: Normal. Adrenals:No mass. Kidneys: No suspicious mass, obstructing stone, or hydronephrosis. Simple right upper pole cyst. GI tract: No small or large bowel dilation. Normal appendix. Mesentery/Peritoneum: No ascites, mass, or free air. Retroperitoneum: No mass. Pelvis: IUD, in good position. Nearly empty urinary bladder. 6.1 cm left adnexal cystic lesion, likel y ovarian, with internal attending calcifications are. Soft Tissues: Soft tissues and body wall unremarkable. Bones: No acute osseous finding. IMPRESSION: Mild gallbladder hydrops, without inflammatory change or stones. Correlate with biliary labs. Conside r MRCP. Stable 6.1 cm left ovarian cystic lesion, recommend nonemergent outpatient pelvic ultrasound for furt her evaluation. Reviewed, dictated and finalized at location K. IMPRESSION: Mild gallbladder hydrops, without inflammatory change or stones. Correlate with biliary labs. Consider MRCP. Stable 6.1 cm left ovarian cystic lesion, recommend nonemergent outpatient pelv ic ultrasound for further evaluation.
--- NOTE | 2024-07-19 18:38 | PC.NURSE ---
assumed care. report received from christie neville
--- NOTE | 2024-07-19 18:39 | ECG_ITS ---
Test Date: 2024-07-19 18:51:59 Measurements Intervals [place] Rate: 107 P: 43 ME: 161 QRS: -4 QRSD: 86 T: 55 QT: 345 QTc: 462 Interpretive Statements SINUS TACHYCARDIA BASELINE ARTIFACT- AVL ABNORMAL ECG No previous ECG available for comparison Electronically Signed On 07-20-2024 05:35:55 CDT by Harmeet Braga D.O.
--- NOTE | 2024-07-19 18:39 | ED.GENADULT ---
HPI - General Adult General Chief complaint: Abdominal Pain Stated complaint: nausea, vomiting Time Seen by Provider: 07/19/24 18:39 Source: patient Mode of arrival: ambulatory Limitations: no limitations History of Present Illness HPI narrative: 38 years old white female came to the emergency room by private car complaining of right abdominal pain, nausea, vomiting started last night. pain is dull aching radiating to right mid back, no aggravating or relieving factors. Patient unable to take her regular medication because of the constant vomiting. Patient is telling me that she been having abdominal pain for the last 6 months, had gallbladder ultrasound 3 days ago order by her family physician, she denies any fever or chills. She reports history of hypertension, hypothyroidism , diabetes. Patient denied any history of abdominal surgery. Patient does not smoke cigarette, drink occasionally, denied drug use. Unknown last menstrual period. Patient currently on Mirena Patient is telling me that she with black out she take any narcotic. Related Data Home Medications Medication Instructions Recorded Confirmed cholecalciferol (vitamin D3) 10 25 mcg PO QAM 10/05/19 07/19/24 mcg (400 unit) capsule escitalopram oxalate 5 mg tablet 10 mg PO QAM 10/05/19 07/19/24 semaglutide 1 mg/dose (2 mg/1.5 1 mg subcut WEEKLY 05/27/21 07/19/24 mL) subcutaneous pen injector (Ozempic) atorvastatin 40 mg tablet 10 mg PO QHS 01/26/23 07/19/24 blood-glucose sensor (Dexcom G6 01/26/23 02/04/24 Sensor device) levonorgestrel 21 mcg/24 hr (up to 1 device intrauterine ONCE 01/26/23 07/19/24 8 years) 52 mg intrauterine device (Mirena) losartan 25 mg tablet 100 mg PO QAM 01/26/23 07/19/24 metformin 500 mg tablet 500 mg PO BID 01/26/23 07/19/24 torsemide 20 mg tablet 20 mg PO QAM 01/26/23 07/19/24 verapamil 120 mg 24 hr 180 mg PO QAM 01/26/23 07/19/24 capsule,extended release insulin aspart U-100 100 unit/mL 1 sliding scale dose subcut 02/04/24 02/04/24 subcutaneous solution (Novolog USEASDIRECTD U-100 Insulin aspart) atenolol 50 mg tablet 50 mg PO QHS 07/19/24 07/19/24 evolocumab 140 mg/mL subcutaneous 140 mg subcut ONCE 07/19/24 07/19/24 syringe (Repatha Syringe) famotidine 40 mg tablet 40 mg PO BID 07/19/24 07/19/24 levothyroxine 137 mcg tablet 137 mcg PO QAM 07/19/24 07/19/24 (Synthroid) spironolactone 25 mg tablet 25 mg PO BID 07/19/24 07/19/24 Allergies Allergy/AdvReac Type Severity Reaction Status Date / Time hydrocodone Allergy Severe Other Verified 07/19/24 18:45 tramadol Allergy Severe Vomiting Verified 07/19/24 18:45 ibuprofen AdvReac Intermediate Unknown Verified 07/19/24 18:45 tylenol 3 AdvReac Intermediate Itching Uncoded 02/04/24 14:30 Review of Systems Review of Systems: All systems reviewed & are unremarkable except as noted in HPI and below PMFSH Past Medical History Medical History Body mass index [BMI] 31.0-31.9, adult (03/15/19) Depression Hyperlipidemia Hypertension Kidney disease Thyroid disorder Type II diabetes mellitus Surgical History Surgical History H/O LEEP 08/24/2018 Family History Family History Grandparent Family history of thyroid disease Family history of Alzheimer's disease Diabetes mellitus Family history of Parkinson's disease Father Hypertension Family history of type 2 diabetes mellitus Sibling Family history of attention deficit hyperactivity disorder (ADHD) Mother Uterine cancer Social History Social History Smoking status: Never smoker Second hand tobacco smoke exposure: No Alcohol intake: current Alcohol use details: Social Substance use: never Lack of Transportation: No Lack of Food: Never True Concerned About Future Housing: No Dif
[2024-07-19 19:07] LABS: Basophils Absolute Auto 0.05 K/mm3 (0.00-0.10); Basophils Percent Auto 0.5 % (0.0-1.0); Eosinophils Absolute Auto 0.21 K/mm3 (0.02-0.50); Eosinophils Percent Auto 2.1 % (1.0-6.0); Hematocrit 32.7 % (35.0-49.0); Hemoglobin 11.6 g/dL (12.0-15.0); Immature Granulocyte Absolute 0.04 K/mm3 (0.00-0.00); Immature Granulocyte Percent A 0.4 % (0.0-0.0); Lymphocytes Absolute Auto 1.34 K/mm3 (1.10-4.50); Lymphocytes Percent Auto 13.3 % (18.0-42.0); Mean Corpuscular HGB Conc 35.5 g/dL (32-36); Mean Corpuscular Hemoglobin 30.4 pg (27.0-31.0); Mean Corpuscular Volume 85.6 fL (78.0-102.0); Mean Platelet Volume 9.8 fl (9.2-11.8); Monocytes Absolute Auto 0.55 K/mm3 (0.10-0.90); Monocytes Percent Auto 5.5 % (2.0-11.0); Neutrophils Absolute Auto 7.86 K/mm3 (1.70-7.20); Neutrophils Percent Auto 78.2 % (50.0-70.0); Platelet Count Result 390 K/mm3 (150-420); Red Blood Count 3.82 M/mm3 (4.20-5.40); Red Cell Distribution Width 12.3 % (11.6-14.4); White Blood Count 10.1 K/mm3 (4.8-10.8)
[2024-07-19] MEDS: SODIUM CHLORIDE 0.9% IV 1,000 ML 999 ML IV CONT (19:09)
[2024-07-19] MEDS: LABETALOL HCL INJ 100 MG/20 ML VIAL 20 MG IV PUSH ×2 (19:10→20:01)
[2024-07-19] MEDS: ONDANSETRON INJ 4 MG/2 ML VIAL 8 MG IV PUSH (19:10)
[2024-07-19 19:22] LABS: Alanine Aminotransferase 18 U/L (14-59); Albumin Level 2.5 g/dL (3.4-5.0); Alkaline Phosphatase 141 U/L (46-116); Anion Gap 6 mmol/L (4-12); Aspartate Amino Transferase 12 U/L (15-37); Bilirubin,Total 0.2 mg/dL (0.00-1.00); Blood Urea Nitrogen 29 mg/dL (7-18); Calcium 8.7 mg/dL (8.5-10.1); Carbon Dioxide 27 mmol/L (21-32); Chloride 104 mmol/L (98-108); Estimated CRCL calculation 36 ml/min; Estimated Glomerular Filt Rate 25; Glucose 156 mg/dL (70-99); Lipase 18 U/L (16-77); Osmolality Calculated 292 mOsm/kg (285-295); Potassium 4.8 mmol/L (3.5-5.1); Sodium 137 mmol/L (136-145)
--- NOTE | 2024-07-19 19:26 | PC.NURSE ---
patient is resting on stretcher with family at her side. currently being taken to cat scan via wheel chair
--- NOTE | 2024-07-19 19:37 | PC.NURSE ---
returned from ct. placed back on winery cellar hand. parents at the bedside. no needs voiced
--- NOTE | 2024-07-19 20:19 | PC.NURSE ---
patient ambulated to the bathroom to give urine sample.
[2024-07-19 20:28] LABS: Add Urine Microscopic? YES; Appearance Urine Clear (Clear); Bilirubin Urine Negative (Negative); Blood Urine 2+ (Negative); Color Urine Light Yellow (Yellow); Glucose Urine UA 2+ (Negative); Ketones Urine Trace (Negative); Leukocyte Esterase Ur Negative LEU/UL (Negative); Nitrate Urine Negative (Negative); Protein Urine 3+ (Negative); Urobilinogen Urine 0.2 mg/dL (0.2-1.0); pH Urine 6.5 (5.0-8.0)
[2024-07-19 20:33] LABS: WBC Urine 0-3 /hpf (0-3)
[2024-07-19 20:34] LABS: Amorphous Sediment Urine Few; Bacteria Urine 1+ /hpf; Pregnancy On Board Control Positive; Squamous Epithelial Cell Urine Moderate /hpf (Few); Urine Pregnancy Test Negative
--- NOTE | 2024-07-19 20:41 | PC.NURSE ---
Spoke with Salima on med surg floor. Patient to go to room 202. Registration has been notified.
[2024-07-19] MEDS: atenoloL 50 MG TABLET PO (21:09)
[2024-07-19] MEDS: LOSARTAN POTASSIUM 25 MG TABLET PO (21:09)
--- NOTE | 2024-07-19 21:12 | PC.NURSE ---
waiting on pharmacy to verify continuous infusion fluids.
--- NOTE | 2024-07-19 21:16 | PC.NURSE ---
spoke with Mohamud at [facility] to verify ns at 150ml/hr
[2024-07-19] MEDS: SODIUM CHLORIDE 0.9% IV 1,000 ML 150 ML IV CONT (21:23)
--- NOTE | 2024-07-19 21:26 | PC.NURSE ---
patient is resting on stretcher with mother at her side.
--- NOTE | 2024-07-19 22:40 | PC.NURSE ---
38 year old female brought to floor via wheelchair for admission from ER. Patient presented to ER with nausea/vomiting with hypertension. Patient did not take her a.m. blood pressure medication. Patient is alert and oriented x4. Lives alone with family close. Pleasant and cooperative. Able to answer questions. No c/o pain. States nausea is improving and had not been able to hold anything down since yesterday. Patient has dexcom and insulin pump for her diabetes. She has a history of HTN, diabetes, chronic cough, kidney disease. Patient able to ambulate and turn and position self. Patient and mother introduced to room, call light, and safety precautions. Both stated understanding.
--- NOTE | 2024-07-19 23:50 | PC.NURSE ---
Dr. Fernandes notified of pt's elevated blood pressure of 206/119. New orders for Labatelol 20 mg IVP x1.
[2024-07-20] VITALS (13 sets, daily range): BP systolic 157–206; BP diastolic 92–119; PULSE 90–104; RESP 18; TEMP 36.5; O2SAT 95–97
[2024-07-20] MEDS: LABETALOL HCL INJ 100 MG/20 ML VIAL 20 MG IV PUSH (00:12)
--- NOTE | 2024-07-20 00:15 | PC.NURSE ---
Pt given labetelol 20 mg IVP as ordered.
--- NOTE | 2024-07-20 00:45 | PC.NURSE ---
Pt's blood pressure is 157/95 in the right arm and 160/102 in the left arm.
--- NOTE | 2024-07-20 04:08 | PC.NURSE ---
New bag of IV fluid hung and infusing as ordered.
--- NOTE | 2024-07-20 05:25 | PC.NURSE ---
Notified Dr. Fernandes about pt's blood pressure going up. He said to give her AM blood pressure medications at 0700 instead of 0900.
[2024-07-20 05:31] LABS: Hematocrit 28.7 % (35.0-49.0); Hemoglobin 9.7 g/dL (12.0-15.0); Mean Corpuscular HGB Conc 33.8 g/dL (32-36); Mean Corpuscular Hemoglobin 29.5 pg (27.0-31.0); Mean Corpuscular Volume 87.2 fL (78.0-102.0); Platelet Count Result 309 K/mm3 (150-420); Red Blood Count 3.29 M/mm3 (4.20-5.40); Red Cell Distribution Width 12.6 % (11.6-14.4); White Blood Count 8.2 K/mm3 (4.8-10.8)
[2024-07-20 05:32] LABS: Mean Platelet Volume 10.2 fl (9.2-11.8)
[2024-07-20 05:44] LABS: Anion Gap 8 mmol/L (4-12); Blood Urea Nitrogen 28 mg/dL (7-18); Calcium 7.9 mg/dL (8.5-10.1); Carbon Dioxide 24 mmol/L (21-32); Chloride 109 mmol/L (98-108); Estimated CRCL calculation 41 ml/min; Estimated Glomerular Filt Rate 28; Glucose 116 mg/dL (70-99); Osmolality Calculated 298 mOsm/kg (285-295); Potassium 3.7 mmol/L (3.5-5.1); Sodium 141 mmol/L (136-145)
--- NOTE | 2024-07-20 06:40 | PC.NURSE ---
Unable to pull up medications on the Pyxis; Notified Dr. Fernandes and asked him to put in a one time order on the blood pressure medications to be able to give them early at 0700 instead of at 0900. He said he didnt want to do that and said to let pharmacy fix the Pyxis issue instead.
[2024-07-20] MEDS: LEVOTHYROXINE SODIUM 25 MCG TABLET PO (06:45)
[2024-07-20] MEDS: LEVOTHYROXINE SODIUM 112 MCG TABLET 137 MCG PO (06:45)
[2024-07-20] MEDS: VERAPAMIL HCL 180 MG TABLET ER PO (08:00)
[2024-07-20] MEDS: LOSARTAN POTASSIUM 50 MG TABLET 100 MG PO (08:01)
[2024-07-20] MEDS: CHOLECALCIFEROL 400 UNITS TABLET (VIT D) PO (08:01)
[2024-07-20] MEDS: TORSEMIDE 20 MG TABLET PO (08:01)
[2024-07-20] MEDS: ESCITALOPRAM OXALATE 10 MG TABLET PO (08:02)
[2024-07-20] MEDS: FAMOTIDINE 20 MG TABLET 40 MG PO ×2 (08:02→20:29)
[2024-07-20] MEDS: SPIRONOLACTONE 25 MG TABLET PO ×2 (08:02→16:29)
--- NOTE | 2024-07-20 08:02 | PM.SD2 ---
Same Day Admit/Disch: HPI History of Present Illness Chief complaint: CHRONIC ABD PAIN VOMITING THEE Narrative: Ailyn Tran is a 38 year old female 0 years old white female came to the emergency room by private car complaining of right abdominal pain, nausea, vomiting started last night. pain is dull aching radiating to right mid back, no aggravating or relieving factors. Patient unable to take her regular medication because of the constant vomiting. Patient is telling me that she been having abdominal pain for the last 6 months, had gallbladder ultrasound 3 days ago order by her family physician, she denies any fever or chills. She reports history of hypertension, hypothyroidism , diabetes. Patient denied any history of abdominal surgery. Patient does not smoke cigarette, drink occasionally, denied drug use. Unknown last menstrual period. Patient currently on Mirena Patient is telling me that she with black out she take any narcotic. [facility] Past Medical History Medical History Body mass index [BMI] 31.0-31.9, adult (03/15/19) Depression Hyperlipidemia Hypertension Kidney disease Thyroid disorder Type II diabetes mellitus Surgical History Surgical History H/O LEEP 08/24/2018 Family History Family History Grandparent Family history of thyroid disease Family history of Alzheimer's disease Diabetes mellitus Family history of Parkinson's disease Father Hypertension Family history of type 2 diabetes mellitus Sibling Family history of attention deficit hyperactivity disorder (ADHD) Mother Uterine cancer Social History Social History Smoking status: Never smoker Second hand tobacco smoke exposure: No Alcohol intake: current Drinks per week: 0 Alcohol use details: Social Substance use: never Substance use type: does not use Do You Feel Safe in your Home?: Yes Lack of Transportation: No Lack of Food: Never True Current Housing: I Have Housing Concerned About Future Housing: No Difficulty Paying Gas/Electric Bills: No Difficulty Paying for Meds: No Currently Unemployed: No Education: High School Diploma/GED Difficulty w/ Childcare or Family Care: No Living arrangements: alone Occupation/Education: occupation Gender identity (if verbalized by the patient): Female Sexual Orientation (if Verbalized by the Patient): Straight or Heterosexual Spiritual care concerns: No Same Day Admit/Disch: Med Pre-admit Medications Home Medications Medication Instructions Recorded Confirmed Type cholecalciferol (vitamin D3) 10 25 mcg PO QAM 10/05/19 07/19/24 History mcg (400 unit) capsule escitalopram oxalate 5 mg tablet 10 mg PO QAM 10/05/19 07/19/24 History semaglutide 1 mg/dose (2 mg/1.5 1 mg subcut WEEKLY 05/27/21 07/19/24 History mL) subcutaneous pen injector (Ozempic) blood-glucose sensor (Dexcom G6 01/26/23 07/20/24 History Sensor device) levonorgestrel 21 mcg/24 hr (up to 1 device intrauterine ONCE 01/26/23 07/19/24 History 8 years) 52 mg intrauterine device (Mirena) torsemide 20 mg tablet 20 mg PO QAM 01/26/23 07/19/24 History verapamil 120 mg 24 hr 180 mg PO QAM 01/26/23 07/19/24 History capsule,extended release insulin aspart U-100 100 unit/mL 1 sliding scale dose subcut 02/04/24 07/20/24 History subcutaneous solution (Novolog USEASDIRECTD U-100 Insulin aspart) atenolol 50 mg tablet 50 mg PO QHS 07/19/24 07/19/24 History evolocumab 140 mg/mL subcutaneous 140 mg subcut ONCE 07/19/24 07/19/24 History syringe (Repatha Syringe) famotidine 40 mg tablet 40 mg PO BID 07/19/24 07/19/24 History levothyroxine 137 mcg tablet 137 mcg PO QAM 07/19/24 07/19/24 History (Synthroid) spironolactone 25 mg tablet 25 mg PO BID 09
[2024-07-20] MEDS: ONDANSETRON INJ 4 MG/2 ML VIAL IV PUSH ×2 (08:45→20:29)
[2024-07-20] MEDS: PANTOPRAZOLE SODIUM IV 40 MG VIAL IV PUSH (08:47)
[2024-07-20] MEDS: atenoloL 50 MG TABLET PO ×2 (11:34→20:29)
[2024-07-20] MEDS: LORazepam (*CRX) 0.5 MG TABLET PO (11:34)
--- NOTE | 2024-07-20 13:03 | PC.NURSE ---
Patient wanting to go home, states feels her blood pressure is up due to being here, spoke with Provider will discuss case with PMD
[2024-07-20] MEDS: cloNIDine HCL 0.2 MG TABLET PO (13:16)
[2024-07-20] MEDS: ATORVASTATIN 10 MG TABLET PO (20:29)
[2024-07-21] VITALS: BP 199/126; PULSE 90; RESP 17; TEMP 36.4; O2SAT 97
[2024-07-21] MEDS: ONDANSETRON INJ 4 MG/2 ML VIAL IV PUSH (02:10)
--- NOTE | 2024-07-21 03:04 | PC.NURSE ---
Pt c/o back pain and requested pain medication. Called Yessica Sheldon NP to request medication but no answer. Message left on voice mail.
--- NOTE | 2024-07-21 05:44 | PC.NURSE ---
BG level per pt's Dexcom at 00:00 result= 133
--- NOTE | 2024-07-21 06:05 | PC.NURSE ---
Pt's bg level per pt's Dexcom exexuf=[id number]
[2024-07-21] MEDS: LEVOTHYROXINE SODIUM 112 MCG TABLET 137 MCG PO (06:30)
[2024-07-21] MEDS: LEVOTHYROXINE SODIUM 25 MCG TABLET PO (06:54)
[2024-07-21 08:00] VITALS: BP 177/110; PULSE 94; RESP 20; TEMP 36.5; O2SAT 98
--- NOTE | 2024-07-21 08:00 | PC.NURSE ---
Per pt's dexcom, blood sugar is 133. Pt refused fingerstick at this time.
[2024-07-21] MEDS: hydrALAZINE HCL 20 MG/ML VIAL IV PUSH (08:08)
[2024-07-21 08:18] LABS: Hematocrit 30.1 % (35.0-49.0); Hemoglobin 10.2 g/dL (12.0-15.0); Mean Corpuscular HGB Conc 33.9 g/dL (32-36); Mean Corpuscular Hemoglobin 29.5 pg (27.0-31.0); Mean Platelet Volume 9.7 fl (9.2-11.8); Platelet Count Result 350 K/mm3 (150-420); Red Blood Count 3.46 M/mm3 (4.20-5.40); Red Cell Distribution Width 12.7 % (11.6-14.4); White Blood Count 7.8 K/mm3 (4.8-10.8)
[2024-07-21 08:35] LABS: Alanine Aminotransferase 21 U/L (14-59); Albumin Level 2.1 g/dL (3.4-5.0); Alkaline Phosphatase 111 U/L (46-116); Anion Gap 8 mmol/L (4-12); Aspartate Amino Transferase 19 U/L (15-37); Bilirubin,Total 0.2 mg/dL (0.00-1.00); Blood Urea Nitrogen 21 mg/dL (7-18); Calcium 8.2 mg/dL (8.5-10.1); Carbon Dioxide 23 mmol/L (21-32); Chloride 106 mmol/L (98-108); Estimated CRCL calculation 41 ml/min; Estimated Glomerular Filt Rate 29; Glucose 125 mg/dL (70-99); Osmolality Calculated 288 mOsm/kg (285-295); Potassium 4.2 mmol/L (3.5-5.1); Sodium 137 mmol/L (136-145)
[2024-07-21 08:41] LABS: Hemoglobin A1C 9.6 % (<5.7)
[2024-07-21 08:47] VITALS: BP 148/92; PULSE 80
--- NOTE | 2024-07-21 09:34 | PM.DS ---
DS: Admitting Diagnosis Discharge Date 07/21/2024 Admitting Diagnosis enteritis/ hypertensive urgency/ acute on chronic kidney disease DS: Discharge Diagnosis Discharge Diagnosis (1) Acute renal failure superimposed on chronic kidney disease: Code(s): N17.9 - Acute kidney failure, unspecified; N18.9 - Chronic kidney disease, unspecified Status: Acute (2) Abdominal pain: Code(s): R10.9 - Unspecified abdominal pain Status: Acute (3) Vomiting: Code(s): R11.10 - Vomiting, unspecified Status: Acute (4) Hypertension, uncontrolled: Code(s): I10 - Essential (primary) hypertension Status: Acute (5) Enteritis: Code(s): K52.9 - Noninfective gastroenteritis and colitis, unspecified Status: Acute DS: Summary Hospital Course Reason for hospitalization: enteritis/ hypertensive urgency/ acute on chronic kidney disease Hospital Course: Patient was a 38-year-old female who had presented to the emergency department with complaints of nausea vomiting patient was found to be hypertensive as well acute on chronic kidney failure. Patient was admitted for further evaluation and treatment. Patient was given antiemetics and IV fluids CT abdomen showed no acute abnormalities. Patient had overall improvement of nausea and vomiting likely could be secondary to her Ozempic. Patient's acute kidney injury was also treated with IV fluids patient's typical baseline is CR of 1.5-2.00 which trended flat during stay did have some concern due to patient's current medications discontinued her losartan as well as metformin since both can worsening kidney disease. Patient did report she follows with a utility engineer outpatient denied any renal stenosis reports kidney disease was caused from overuse of ibuprofen but there is likely some underlying kidney disease from her hypertension and diabetes. patient also remained hypertensive during her stay systolics greater than 190s she had been given clonidine in the emergency department x1 so it is possible patient had some rebound hypertension as well as hypertension from dehydration. I did discontinue patient's losartan due to kidney function and started her on hydralazine t.i.d. she was given hydralazine IV push x1 with improvement to blood pressure systolics now in the 140s. Patient with overall improvement and felt back to baseline did encourage patient after discharge to monitor her blood pressure and to remain compliant with her Ozempic she is aware she will need a follow-up with her primary care physician for a BP check as well as A1c. patient is ambulatory on own and was discharged to home. Status at Discharge Functional status at discharge: independent ambulation Time Spent with Patient Time attestation: Total time spent providing and/or coordinating discharge services: Time spent: Greater than 30 minutes Exam Narrative: Physical Exam: GENERAL: pleasant Alert and oriented x 3 female. No acute distress. HEENT: Moist mucous membranes. LUNGS: Clear to auscultation bilaterally. No accessory muscle use. CARDIOVASCULAR: Regular rate and rhythm. No murmur. S1-S2 ABDOMEN: Soft, non tenderness and non-distended. No palpable masses. EXTREMITIES: No edema. Non-tender SKIN: No rashes or lesions. Skin warm, dry. NEUROLOGIC: No focal neurological deficits. PSYCHIATRIC: Appropriate mood and affect. Good judgement and insight. DS: Data Data Completed and Pending Labs on day of discharge: Labs from last 24 hours 07/21/24 08:07 WBC 7.8 RBC 3.46 L Hgb 10.2 L Hct 30.1 L MCV 87.0 MCH 29.5 MCHC 33.9 RDW 12.7 Plt Count 350 MPV 9.7 Sodium 137 Potassium 4.2 Chloride 106 Carbon Dioxide 23 Anion Gap 8 BUN 21 H Creatinine 1.94 H Estim Creat Clear Calc 41 Estimated GFR 29 L Glucose 125 H Hemoglobin A1c 9.6 H Calculated Osmolality 288 Calcium 8.2 L Total Bilirubin 0.2 AST 19 ALT 21 Alkaline
[2024-07-21 10:00] VITALS: BP 142/74
[2024-07-21 10:02] VITALS: BP 144/78
[2024-07-21] MEDS: FAMOTIDINE 20 MG TABLET 40 MG PO (10:08)
[2024-07-21] MEDS: VERAPAMIL HCL 180 MG TABLET ER PO (10:08)
[2024-07-21] MEDS: ESCITALOPRAM OXALATE 10 MG TABLET PO (10:08)
[2024-07-21] MEDS: SPIRONOLACTONE 25 MG TABLET PO (10:08)
[2024-07-21] MEDS: TORSEMIDE 20 MG TABLET PO (10:08)
[2024-07-21] MEDS: CHOLECALCIFEROL 400 UNITS TABLET (VIT D) PO (10:08)
[2024-07-21] MEDS: PANTOPRAZOLE SODIUM IV 40 MG VIAL IV PUSH (10:09)
[2024-07-21] MEDS: hydrALAZINE HCL 25 MG TABLET 50 MG PO (11:34)
--- NOTE | 2024-07-21 11:53 | PC.NURSE ---
Per pt's dexcom, blood sugar is 177. Pt refused fingerstick at this time.
[2024-07-21 12:15] VITALS: BP 144/84
--- NOTE | 2024-07-21 12:59 | PC.NURSE ---
discharge instructions reviewed with patient and her dad. All questions answered. Pt ambulated self for discharge.
--- NOTE | 2024-07-24 09:44 | PC.NURSE ---
Discharge call back complete, feeling better, no questions regarding dc instructions
== END 2024-07-21 13:00 | disposition home or self-care (01) ==
LOC: CHSED 21:02 → CHS2ND 21:18
PROVIDERS: Nurse Practitioner Family; Admitting Provider Internal Medicine; Emergency Provider Emergency Medicine; PCP Internal Medicine; Visit Provider Nurse Practitioner Family
DX: I16.0 Hypertensive urgency; I12.9 Hypertensive chronic kidney disease with stage 1 through stage 4 chronic kidney disease, or unspecified chronic kidney disease; E11.22 Type 2 diabetes mellitus with diabetic chronic kidney disease; N18.9 Chronic kidney disease, unspecified; E03.9 Hypothyroidism, unspecified; K52.9 Noninfective gastroenteritis and colitis, unspecified; Z79.4 Long term (current) use of insulin; Z79.84 Long term (current) use of oral hypoglycemic drugs; Z79.85 Long-term (current) use of injectable non-insulin antidiabetic drugs
CPT/HCPCS: 36415; 74176; 80048; 80053; 81001; 81025; 83036; 83605; 83690; 85025; 85027; 93005; 96361; 96374; 96375; 96376; 99285; A9270; G0378; J0360; J2405; J2470; J7030

== ENCOUNTER 2024-07-24 10:19 | Outpatient (CLI) | payer OTHER, SELFPAY ==
--- NOTE | ~2024-07-24 | NM_ITS ---
EXAMINATION: NM hepatobiliary w pharm DATE: 07/24/2024 13:05 INDICATION: Epigastric abdominal pain. COMPARISON: CT abdomen and pelvis 07/19/2024 TECHNIQUE: 6.4 mCi Tc-99m mebrofenin (Choletec) was administered intravenously. Scintigraphic images of the abdomen were obtained for one hour. Then, 2.1 mcg sincalide (Kinevac) IV was administered, an d imaging was continued for 30 minutes. FINDINGS: There is normal clearance of radiotracer from the blood pool. There is homogeneous tracer u ptake by the liver. Activity progresses to the bowel and gallbladder. Gallbladder ejection fraction (GBEF) was 18%. Note that most patients with gallbladder dysfunction have GBEF < 35%, which overlaps with the broad normal range of 10-90%. IMPRESSION: 1. Gallbladder ejection fraction in the lower range of normal. Note that this value overlaps with th e range of values that may be seen with gallbladder dysfunction and/or chronic cholecystitis if there is appropriate clinical correlation. Reviewed, dictated and finalized at location A. IMPRESSION: 1. Gallbladder ejection fraction in the lower range of normal. Note that this value overlaps with the range of values that may be seen with gallbladder dysfu nction and/or chronic cholecystitis if there is appropriate clinical correlatio nBlaine
== END 2024-07-24 10:20 | disposition home or self-care (01) ==
LOC: CHSIMG 10:19
PROVIDERS: PCP Internal Medicine; Visit Provider Internal Medicine
DX: R10.13 Epigastric pain (principal)
CPT/HCPCS: 78227; A9537; J2805

== ENCOUNTER 2024-08-10 14:17 | Outpatient (CLI) | payer OTHER, SELFPAY ==
--- NOTE | ~2024-08-10 | US_ITS ---
EXAMINATION: US pelvic complete w TV DATE: 08/10/2024 14:46 INDICATION: Unspecified ovarian cyst, left side. TECHNIQUE: Multiple transabdominal and transvaginal sonographic images of the pelvis were obtained. COMPARISON: CT abdomen and pelvis 07/19/2024, 07/03/23 FINDINGS: TRANSABDOMINAL ULTRASOUND: The uterus measures 8.0 x 4.8 x 3.1 cm. There is no free fluid in the pelvis. TRANSVAGINAL ULTRASOUND: The endometrial complex measures 4 mm in thickness. There is an intrauterine device in expected posit ion. The right ovary is not visualized. The left ovary measures 6.3 x 6.0 x 6.3 cm. There is a 5.8 cm cyst with peripheral low-level echoes in left ovary. IMPRESSION: 1. 5.8 cm cyst in left ovary, stable from 07/03/23, probably a hemorrhagic cyst. Consider imaging follo w-up or surgical evaluation. Reviewed, dictated and finalized at location A. IMPRESSION: 1. 5.8 cm cyst in left ovary, stable from 07/03/23, probably a hemorrhagic cyst. Consider imaging follow-up or surgical evaluation.
== END 2024-08-10 14:18 | disposition home or self-care (01) ==
LOC: CHSIMG 14:18
PROVIDERS: PCP Internal Medicine; Visit Provider Nurse Practitioner Family
DX: N83.202 Unspecified ovarian cyst, left side (principal)
CPT/HCPCS: 76830; 76856

== ENCOUNTER 2024-08-24 13:53 | Outpatient (CLI) | payer OTHER, SELFPAY ==
[2024-08-24 15:03] LABS: Amylase 44 U/L (30-110)
[2024-08-24 15:04] LABS: Partial Thromboplastin Time 29.9 Seconds (22.3-36.8); Prothrombin Time 13.4 Seconds (11.1-14.7)
== END 2024-08-24 13:54 | disposition home or self-care (01) ==
PROVIDERS: Anesthesiology; PCP Internal Medicine; Visit Provider Surgery
DX: N28.9 Disorder of kidney and ureter, unspecified (principal); K82.8 Other specified diseases of gallbladder; Z01.818 Encounter for other preprocedural examination
CPT/HCPCS: 36415; 82150; 85610; 85730

== ENCOUNTER 2024-08-28 02:02 | Day surgery (SDC) | payer OTHER, SELFPAY ==
--- NOTE | 2024-08-21 11:01 | SUR.PREOP ---
Report to the Outpatient Waiting Room, entrance under the green pavilion located off [facility], at time 1000 on date 08/28/24. Planned Procedure Time: 1200.? Time changes happen often and if your time is changed the preop area will call you the afternoon before. - You and your visitor will be asked to self-screen and do not enter if you have any COVID symptoms. Please call surgeon if you need to reschedule. - A mask is optional within the hospital at this time. Patients may have clear liquids (water, carbonated beverages, clear teas, apple juice) until 3 hours prior to surgery with a maximum of 20 ounces. - NO CLEAR LIQUIDS AFTER 9AM - No food from midnight until time of surgery and no smoking - Infants may have breast milk until 4 hours before surgery, infant formula 6 hours prior to surgery. - Children will be allowed to drink immediately following surgery.? If applicable, please bring a bottle or sippy cup to assist with drinking. Juice, water, soda, and popsicles are readily available.? For infants on formula, please bring formula the day of surgery.? Pacifiers are allowed. Take only the following medications with a SIP of water on the morning of surgery: ESCITALOPRAM,HYDRALAZINE,SYNTHROID,ZOFRAN,VERAPAMIL, INSULIN PUMP INSTRUCTIONS GIVEN: CONTINUE USUAL BASAL RATE UNLESS PATIENT HAS VERY TIGHT CONTROL OR HISTORY OF HYPOGLYCEMIA, THEN SUGGEST DECREASE BASAL RATE BY 01-0.2 UNITS/HOUR. DO NOT DISCONTINUE INSULIN PUMP. DO NOT STOP ANY OF YOUR OTHER PRESCRIPTION MEDICATIONS PRIOR TO SURGERY EXCEPT THE FOLLOWING Medications to discontinue per physician VITAMINS Date to take last dose 08/24 Please no make-up, nail kosovan, hairspray, perfume, deodorant, or body powder the day of surgery.? No jewelry (including any body piercings) or valuables the day of surgery, leave them at home.? Please take a shower or bath the night before, or the morning of, surgery with an antibacterial soap.? Wear comfortable, loose fitting clothing.? Children are encouraged to wear pajamas. - Jewelry must be removed prior to entering the operating room.? Rings and piercings that are not removed may be cut off. - The hospital will not accept responsibility for valuables.? - Please leave all valuables, including medications, at home the day of surgery. If you are going home after surgery, a licensed otr driver must drive you home.? - NO public transportation without another adult if you receive anesthesia. - We recommend that an adult stay with you for 24 hours following discharge. - We also recommend that you do not drive, make important decision, drink alcoholic beverages, or take any drugs that were not prescribed by your health care provider for at least 24 hours after your discharge time. For Pediatric surgeries, we recommend two adults accompany the child home. Follow any additional instructions given to you from your surgeon. Telephone instructions given to JHON LEE and asked if any additional questions and then verbalized understanding. Patient advised to call surgeon office or pre surgery nurse liaison [phone] if any additional questions.
[2024-08-21 11:56] VITALS: BMI 35.0
[2024-08-28] VITALS (14 sets, daily range): BP systolic 91–161; BP diastolic 56–92; PULSE 63–79; RESP 13–20; TEMP 36.2–36.6; O2SAT 63–100
--- NOTE | 2024-08-28 10:10 | P.PNAN_ITS ---
Anes - Initial Pre Proc Eval Procedure: Operation Date: 08/28/24 12:00 Proposed Procedures p Laparoscopic Cholecystectomy, Possible Open - Jason Funez DO Date/Time: 08/28/24 10:10 Surgeon: Jason Funez DO Pre Op Diagnosis: biliary dyskenisia Patient Data Age: 39 Gender: F Height: 1.65 m Weight: 95.5 kg Allergies Allergy/AdvReac Type Severity Reaction Status Date / Time codeine Allergy Severe Vomiting Verified 08/24/24 15:29 hydrocodone Allergy Severe Other Verified 08/24/24 15:29 ibuprofen Allergy Severe Unknown Verified 08/24/24 15:29 tramadol Allergy Severe Vomiting Verified 08/24/24 15:29 Home Medications Medication Instructions Recorded Confirmed Type cholecalciferol (vitamin D3) 10 25 mcg PO QAM 10/05/19 08/27/24 History mcg (400 unit) capsule escitalopram oxalate 5 mg tablet 10 mg PO QAM 10/05/19 08/27/24 History blood-glucose sensor (Dexcom G6 01/26/23 08/27/24 History Sensor device) levonorgestrel 21 mcg/24 hr (up to 1 device intrauterine ONCE 01/26/23 08/27/24 History 8 years) 52 mg intrauterine device (Mirena) torsemide 20 mg tablet 20 mg PO QAM 01/26/23 08/27/24 History verapamil 120 mg 24 hr 180 mg PO QAM 01/26/23 08/27/24 History capsule,extended release insulin aspart U-100 100 unit/mL 1 sliding scale dose subcut 02/04/24 08/27/24 History subcutaneous solution (Novolog USEASDIRECTD U-100 Insulin aspart) atenolol 50 mg tablet 50 mg PO QHS 07/19/24 08/27/24 History famotidine 40 mg tablet 40 mg PO BID 07/19/24 08/27/24 History levothyroxine 137 mcg tablet 137 mcg PO QAM 07/19/24 08/27/24 History (Synthroid) spironolactone 25 mg tablet 25 mg PO DAILY 07/19/24 08/27/24 History ondansetron 8 mg disintegrating 8 mg PO Q8H PRN nausea and 07/20/24 08/27/24 Rx tablet vomiting #14 tabs atorvastatin 40 mg tablet 40 mg PO QHS #30 tabs 07/21/24 08/27/24 Rx hydralazine 25 mg tablet 50 mg PO TID #90 tabs 07/21/24 08/27/24 Rx evolocumab 140 mg/mL subcutaneous 140 mg subcut ONCE 08/07/24 08/27/24 History syringe (Repatha Syringe) cyanocobalamin (vitamin B-12) 1,000 mcg PO DAILY 08/24/24 08/27/24 History 1,000 mcg capsule Patient hx anesthesia problems: none Family hx anesthesia problems: none Results Review: All pre-operative results and documents have been reviewed as part of the pre- operative evaluation. [facility] Past Medical History Medical History Body mass index [BMI] 31.0-31.9, adult (03/15/19) Depression Hyperlipidemia Hypertension Kidney disease Thyroid disorder Type II diabetes mellitus Surgical History Surgical History H/O LEEP 08/24/2018 History of eye surgery Family History Family History Grandparent Family history of thyroid disease Family history of Alzheimer's disease Diabetes mellitus Family history of Parkinson's disease Father Hypertension Family history of type 2 diabetes mellitus Sibling Family history of attention deficit hyperactivity disorder (ADHD) Mother Uterine cancer Social History Social History Smoking status: Never smoker Second hand tobacco smoke exposure: No Alcohol intake: current Drinks per week: 0 Alcohol use details: RARE Substance use: never Substance use type: does not use Do You Feel Safe in your Home?: Yes Lack of Transportation: No Lack of Food: Never True Current Housing: I Have Housing Concerned About Future Housing: No Difficulty Paying Gas/Electric Bills: No Difficulty Paying for Meds: No Currently Unemployed: No Education: High School Diploma/GED Difficulty w/ Childcare or Family Care: No Living arrangements: alone Occupation/Education: occupation Gender identity (if verbalized by the patient): Female Sexual Orientation (if Verbalized by the Patient): Straight or Heterosexual Spiritual care concerns: No Anes - Eval Final PreProcedure Day of Procedure 08/28/24 10:10 Patient weight: obese Heart: regular rate and rhythm Lungs: clear to auscultation Airway: Mallampati scale class II Neurological: alert and oriented Last oral intake: >/= 8 hours ASA classification: III Emergent: no Anesthetic plan: proceed Anesthesia type and monitoring: general ETT and standard monitoring Results Review: All pre-operative results and documents have been reviewed as part of the pre- operative evaluation. Informed Consent: The patient's anesthetic plan and its attendant risks and benefits were discussed with the patient/family/POA. Questions were solicited and answers provided to the satisfaction of the patient/family/POA.
[2024-08-28] MEDS: KETOROLAC 15 MG/ML VIAL (*BKC) IV PUSH (10:30)
[2024-08-28] MEDS: LACTATED RINGERS 1,000 ML 30 ML IV CONT ×2 (10:30→12:31)
[2024-08-28] MEDS: ACETAMINOPHEN 500 MG TABLET 1000 MG PO (10:30)
[2024-08-28 10:56] LABS: Glucose Point of Care 176 mg/dl (65-105)
--- NOTE | 2024-08-28 11:13 | WPDHPUPDATE1 ---
History and Physical Update Update Date/Time: 08/28/24 11:13 History and Physical has been reviewed, including an updated exam of the patient. There are NO changes in the patient's condition. Risks, benefits, and alternatives have been discussed and questions answered. Patient agrees to proceed with procedure.
[2024-08-28 11:30] LABS: BEDSIDEPREGUCG Negative (Negative)
[2024-08-28] MEDS: ceFAZolin 2 GM/D5W 50 ML 2 GM/50 ML BAG IVPB (11:45)
[2024-08-28] MEDS: BUPIVACAINE/EPINEPHRINE 0.5% 50 ML VIAL 20 ML INFILTRATE (12:11)
--- NOTE | 2024-08-28 12:32 | W.PM.PROC2 ---
Procedure Note - Detailed Date of Procedure 08/28/24 Pre-op Diagnosis biliary dyskenisia Post-op Diagnosis Same Procedure Performed Laparoscopic cholecystectomy Surgeon Jason Funez, DO Anesthesia General and Local (0.5% bupivacaine) Indications This is a 39-year-old woman who was complaining of upper abdominal pains intermittently. She had previously had an ultrasound and CT which showed a distended gallbladder but was otherwise normal. HIDA scan was then performed which showed a gallbladder ejection fraction of 18%. Discussions were made with the patient about treatment options and decision was made to proceed with laparoscopic cholecystectomy, possible open. Findings Laparoscopic cholecystectomy was performed. The gallbladder appeared distended there were no other significant abnormalities. The cystic duct appeared normal in size. There were no signs of pericholecystic adhesions or acute cholecystitis. Gallbladder was removed and sent to the lab for pathology. Description of Procedure Procedure as well as risks, benefits, and alternatives were discussed with patient. Written consent was obtained and placed in chart prior to procedure. The patient was brought back to surgical suite. Patient was placed in supine position on operating table. Time-out was done to confirm patient and procedure. Patient was then intubated by the anesthesia department. Abdomen was prepped and draped in sterile fashion using chlorhexidine prep. 0.5% bupivacaine with epinephrine was infiltrated at each site of incision. A 5 millimeter incision was made near the umbilicus, and a 5 millimeter Optiview trocar was advanced through the abdominal layers under direct visualization. Once inside the abdominal cavity, carbon dioxide was insufflated to create a pneumoperitoneum. The camera was inserted and the abdomen was inspected. No immediate abnormalities were identified. The patient was placed in reverse Trendelenburg position and rotated slightly to the left. An 11 millimeter incision was made in the subxiphoid region, and an 11 millimeter trocar was inserted under direct visualization. Two 5 millimeter incisions were made in the right upper quadrant, and two 5 millimeter trocars were inserted under direct visualization. The gallbladder was identified and grasped at the fundus and retracted superiorly. It was then grasped at the infundibulum retracted laterally. Careful dissection around the neck of the gallbladder was performed using blunt dissection with a [place] grasper and hook electrocautery. The cystic duct was identified, and a window was created behind it. The cystic artery was also identified and a window was created behind it. The critical view of safety was identified, visualizing the cystic duct running directly into the neck of the gallbladder, and the cystic artery running directly into the wall of the gallbladder. A 5 millimeter clip corporate securities research analyst was then used to place 2 clips proximally and 1 clip distally on both the cystic duct and cystic artery. They were then both transected using endoscopic scissors. Once safely away from the radha hepatitis, the gallbladder was dissected free from the liver bed using hook electrocautery. Hemostasis was achieved along the way. The gallbladder was removed completely and then removed through the subxiphoid port. The liver bed was then inspected. Hemostasis appeared adequate, and our clips appeared secure. The area was gently irrigated with sterile saline. No other abnormalities were seen. The patient was flattened out in bed, and 1 final inspection was made around the abdominal cavity. The subxiphoid port was removed, and a Kleber Janell cone was used to approximate the fascia with an 0-Vicryl simple interrupted suture. The remaining ports were then removed under direct visualization, the camera was removed, and the pneumoperitoneum was released. The skin of the incisions was approximated using 4-0 Monocryl subcuticular sutures. Exofin glue was applied on top. The patient was then awakened from anesthesia, extubated, and transferred to recovery. Estimated Blood Loss 5 Pathology Yes (Gallbladder) Complications No immediate complications Condition Stable Disposition Same day [facility] Billing Surgery - Charge Forward: Surgery Billing
[2024-08-28 12:40] LABS: Glucose Point of Care 180 mg/dl (65-105)
[2024-08-28] MEDS: ONDANSETRON INJ 4 MG/2 ML VIAL IV PUSH (13:00)
[2024-08-28] MEDS: diphenhydrAMINE HCl INJ 50 MG/ML VIAL 12.5 MG IV PUSH ×2 (13:13→13:23)
--- NOTE | 2024-08-28 13:14 | SUR.PHASEI ---
1310 - MD Boogie notified (anesthesia). Pt still nauseated after ordered Zofran. New orders for RN to give 12.5mg Benadryl IVP. Can repeat once to max dose of 25mg. LR infusing.
[2024-08-28] MEDS: fentaNYL CITRATE INJ (*CRX) 100 MCG/2 ML VIAL 25 MCG IV PUSH (13:35)
[2024-08-28] MEDS: SCOPOLAMINE 1 MG PATCH 1 PATCH TRANSDERM (14:01)
== END 2024-08-28 15:05 | disposition home or self-care (01) ==
PROVIDERS: Anesthesiology; PCP Internal Medicine; Visit Provider Surgery
PROC: 0FT44ZZ Resection of Gallbladder, Percutaneous Endoscopic Approach (ICD-10-PCS; CPT 47562; principal; 2024-08-28 12:00)
DX: K80.20 Calculus of gallbladder without cholecystitis without obstruction (principal); N28.9 Disorder of kidney and ureter, unspecified; E78.5 Hyperlipidemia, unspecified; I10 Essential (primary) hypertension; E11.9 Type 2 diabetes mellitus without complications; F32.A Depression, unspecified; E66.9 Obesity, unspecified; Z68.36 Body mass index [BMI] 36.0-36.9, adult; Z79.4 Long term (current) use of insulin; Z98.890 Other specified postprocedural states; Z80.49 Family history of malignant neoplasm of other genital organs
CPT/HCPCS: 47562; 82948; 88304; A9270; J0690; J1200; J1885; J2003; J2250; J2405; J2704; J3010; J7030; J7120

== ENCOUNTER 2024-10-09 13:46 | Outpatient (CLI) | payer OTHER, SELFPAY ==
--- NOTE | ~2024-10-09 | US_ITS ---
EXAMINATION: US pelvic complete w TV INDICATION: Ovarian cyst. Comparison:Ultrasound dated 08/10/2024 TECHNIQUE: Multiple transabdominal and endovaginal sonographic images of the pelvis performed. FINDINGS: The uterus measures 5.8 x 3.6 cm. There is an IUD present in the endometrium.. The endometr ial complex measures 7 mm. There is a small hypoechoic area within the cervix measuring up to 1.6 cm, likely a complicated nabothian cysts. The right ovary measures 4.4 x 2.8 x 2.7 cm and the left ovary measures 6 x 5 x 4.9 cm. There is a le ft ovarian cyst measuring 5.5 x 4.5 x 4.5 cm without significant change from prior examination. Unabl e to detect flow in the left ovary. There is no free fluid in the pelvis. There are no abnormal mass es seen on either side. IMPRESSION: 1. Stable 5.5 cm left ovarian simple cyst. Reviewed, dictated and finalized at location B. ACE COMBUSTION ANALYST
== END 2024-10-09 13:47 | disposition home or self-care (01) ==
PROVIDERS: PCP Internal Medicine; Visit Provider Obstetrics & Gynecology
DX: N83.202 Unspecified ovarian cyst, left side (principal)
CPT/HCPCS: 76830; 76856

== ENCOUNTER 2024-12-15 10:21 | Outpatient (CLI) | payer OTHER, SELFPAY ==
--- NOTE | 2024-12-15 10:35 | ECG_ITS ---
Test Date: 2024-12-15 10:41:51 Measurements Intervals [place] Rate: 78 P: 24 CT: 158 QRS: 0 QRSD: 91 T: 74 QT: 376 QTc: 430 Interpretive Statements SINUS RHYTHM INCOMPLETE RIGHT BUNDLE BRANCH BLOCK VOLTAGE CRITERIA FOR LVH BASELINE ARTIFACT- I, II, III, AVR, AVL, AVF BORDERLINE ECG Compared to ECG 07/19/2024 18:51:59 HEART RATE HAS DECREASED Electronically Signed On 12-15-2024 11:19:20 GARAGE HAND by Harmeet Braga D.O.
--- OUTSIDE RECORDS SUMMARY | 2024-12-15 10:59 | XMS_ITS | Clinical Summary ---
Author Organization [facility] Address [facility] [place] [address] Care Team Providers Care Support Team Assoc Name Role Phone Carlos Enrique Posada MD Primary Care Provider [phone] Allergies Active Allergy Reactions Criticality Noted Date Comments Hydrocodone-Acetamino phen Other (see comment) 11/07/2021 Patient passes out Tramadol GI Upset 11/07/2021 Medications atenolol 50 MG tablet Take 50 mg by mouth daily. Active atorvastatin 20 MG tablet Take 20 mg by mouth daily. 09/15/2021 Active Cholecalciferol (VITAMIN D) 50 MCG (1999 UT) Cap Take 1 tablet by mouth daily. Active Continuous Blood Gluc Grain Elevator Man (SportskeedaSTYLE HARINDER 2 READER) Device Inject 1 each into the skin daily. 06/24/2021 Active vitamin B-12 (VITAMIN B12) 100 MCG tablet Take 1 tablet by mouth daily. Active escitalopram 5 MG tablet Take 5 mg by mouth daily. 09/16/2021 Active Insulin Degludec (TRESIBA) 100 UNIT/ML Solution Inject 50 Units into the skin daily. Active HUMALOG 100 UNIT/ML injection (VIAL) Inject 10 Units into the skin 2 (two) times daily with meals. 10/20/2021 Active levothyroxine 75 MCG tablet Take 75 mcg by mouth daily. Active metFORMIN ER 500 MG 24 hr tablet Take 500 mg by mouth 2 (two) times daily. Active semaglutide (OZEMPIC 0.25/0.5 MG/DOSE) 2 MG/1.5ML injection (PEN) Inject 1.5 mLs into the skin once a week. Active Active Problems Problem Noted Date Diagnosed Date Carpal tunnel syndrome of right wrist 11/07/2021 Carpal tunnel syndrome of left wrist 11/07/2021 Cubital tunnel syndrome on left 11/07/2021 Cubital tunnel syndrome on right 11/07/2021 Encounters Date Type Department Care Team Description 12/07/2024 3:35 PM SCRUBBER SYSTEM ATTENDANT - 12/07/2024 11:59 PM SCRUBBER SYSTEM ATTENDANT Hospital Encounter [facility] [address] [place] [address] Sammi Camacho PA-C Discharge Disposition: Home or Self Care (Routine Discharge) 12/07/2024 Orders Only [facility] [place] [address] Sammi Camacho PA-C 12/07/2024 Travel from Last 3 Months Social History Tobacco Use Types Packs/Day Years Used Date Smoking Tobacco: Never Smokeless Tobacco: Never Alcohol Use Standard Drinks/Week Comments Yes 0 (1 standard drink = 0.6 oz pur e alcohol) rarely Comments Unknown Sex and Gender Information Value Date Recorded Sex Assigned at Female 12/07/2024 3:33 PM SCRUBBER SYSTEM ATTENDANT Legal Sex Female 8:04 PM CDT Gender Identity Not on file Sexual Orientation Not on file Last Filed Vital Signs Vital Sign Reading Time Taken Comments Blood Pressure 104/78 01/02/2014 10:40 AM CDT Pulse 92 01/02/2014 10:40 AM CDT Temperature - - Respiratory Rate - - Oxygen Saturation - - Inhaled Oxygen Concentration - - Weight 89.8 kg (198 lb) 11/07/2021 9:40 AM SCRUBBER SYSTEM ATTENDANT Height 165.1 cm (5' 5 ) 11/07/2021 9:40 AM SCRUBBER SYSTEM ATTENDANT Body Mass Index 32.95 11/07/2021 9:40 AM SCRUBBER SYSTEM ATTENDANT Plan of Treatment Health Maintenance Due Date Last Done Comments Cervical Cancer Screening Pa p Smear (Age 30 to 64) Every 3 Years 1983 Annual Physical 1986 DTaP, Tdap and Td Vaccines ( 1 - Tdap) 2002 Hepatitis B Vaccines (1 of 3 - 19+ 3-dose series) 2002 Cervical Cancer Screening Pa p with HPV Testing (Age 30 to 64) Every 5 Years 2013 Cervical Cancer Screening with HPV 2013 Mammogram Screening 2023 COVID-19 Vaccine ( - 2023-2 5 season) 2024 Influenza Adult (#1) 2024 Hepatitis C Completed 03/05/2022 HPV Vaccines Aged Out No longer eligi ble based on patient's age to complete this topic Meningococcal B Vaccine Aged Out No l onger eligible based on patient's age to complete this topic Meningococcal Vaccine Aged Out No richard lisa eligible based on patient's age to complete this topic Pneumococcal Vaccine: Pediat rics (0 to 5 Years) and At-Risk Patients (6 to 64 Years) Aged Out No longer eligi ble based on patient's age to complete this topic RSV Immunizations Under 20 Months Aged Out No longer eligible based on patient's age to complete this topic Procedures Procedure Name Priority Date/Time Associated Diagnosis Comments CBC W/DIFF AUTOMATED Routine 12/07/2024 4:10 PM SCRUBBER SYSTEM ATTENDANT Chronic kidney disease, stage 3 unspecified (CMS/HCC HHS/HCC) RENAL FUNCTION PANEL Routine 12/07/2024 4:10 PM SCRUBBER SYSTEM ATTENDANT Chronic kidney disease, stage 3 unspecified (CMS/HCC HHS/HCC) ALBUMIN URINE RANDOM W/CREATININE Routine 12/07/2024 4:05 PM SCRUBBER SYSTEM ATTENDANT Chronic kidney disease, stage 3 unspecified (CMS/HCC HHS/HCC) HEPATITIS C ANTIBODY Routine 03/05/2022 2:32 PM CDT Proteinuria from Last 3 Months or Most Recently Relevant to Health Maintenance Results * (ABNORMAL) RENAL FUNCTION PANEL (12/07/2024 4:10 PM SCRUBBER SYSTEM ATTENDANT) SODIUM S/P/B 136 136 - 145 MMOL/L 12/07/2024 4:37 PM SCRUBBER SYSTEM ATTENDANT [facility] POTASSIUM S/P/B 4.8 3.5 - 5.1 MMOL/L 12/07/2024 4:37 PM [facility] CHLORIDE S/P/B 101 98 - 107 MMOL/L 12/07/2024 4:37 PM [facility] CO2 24.7 21.0 - 32.0 MMOL/L 12/07/2024 4:37 PM [facility] GLUCOSE 420(H) 70 - 99 MG/DL 12/07/2024 4:37 PM [facility] Comment: FASTING GLUCOSE 100 TO 125 MG/DL IS CONSISTENT WITH IMPAIRED FASTING GLUCOSE. FASTING GLUCOSE >125 MG/DL IS CONSISTENT WITH DIABETES. RANDOM GLUCOSE >200 MG/DL WITH HYPERGLYCEMIC SYMPTOMS IS CONSISTENT WITH DIABETES. PER ADA GUIDELINES BUN 35(H) 6 - 24 MG/DL 12/07/2024 4:37 PM [facility] CREATININE S/P/B 2.30(H) 0.55 - 1.02 MG/DL 12/07/2024 4:37 PM [facility] CALCIUM S/P/B 8.0(L) 8.4 - 10.5 MG/DL 12/07/2024 4:37 PM [facility] ALBUMIN S/P/B 2.4(L) 3.4 - 5.0 G/DL 12/07/2024 4:37 PM [facility] PHOSPHORUS 4.3 2.6 - 4.7 MG/DL 12/07/2024 4:37 PM [facility] ANION GAP 10.3 5.0 - 15.0 MMOL/L 12/07/2024 4:37 PM [facility] OSMOLALITY (CALC) 308 MOSM/KG 025 4:37 PM [facility] Comment:REFERENCE RANGE NOT ESTABLISHED GFR ESTIMATE 27(L) >89 ML/MIN/1. 73 M2 12/07/2024 4:37 PM [facility] GFR NOTES GFR REFERENCE S: 12/07/2024 4:37 PM [facility] Comment: THE ESTIMATED GFR IS CALCULATED USING THE 2020 CKD-EPI EQUATION. THE FOLLOWING CATEGORIES FOR GRADING RENAL FUNCTION ARE RECOMMENDED BY THE INTERNATIONAL SOCIETY OF NEPHROLOGY (KDIGO 2012 CLINICAL PRACTICE GUIDELINE). G1,NORMAL OR HIGH: >89 ml/min/1.73 m2 G2,MILDLY DECREASED: 60-89 ml/min/1.73 m2 G3A,MILDLY TO MODERATELY DECREASED: 45-59 ml/min/1.73 m2 G3B,MODERATELY TO SEVERELY DECREASED: 30-44 ml/min/1.73 m2 G4,SEVERELY DECREASED: 15-29 ml/min/1.73 m2 G5,KIDNEY FAILURE: <15 ml/min/1.73 m2 12/07/2024 4:10 PM SCRUBBER SYSTEM ATTENDANT us Sammi Camacho PA-C LABORATORY Final Resu lt [facility] [address] [place] [id number], * (ABNORMAL) CBC W/DIFF AUTOMATED (12/07/2024 4:10 PM SCRUBBER SYSTEM ATTENDANT) WBC 10.59 4.00 - 10.80 x10'3/uL 12/07/2024 4:22 PM SCRUBBER SYSTEM ATTENDANT [facility] RBC 3.53(L) 4.10 - 5.40 x10'6/uL 12/07/2024 4:22 PM [facility] HGB 10.4(L) 12.0 - 16.0 G/DL 12/07/2024 4:22 PM SCRUBBER SYSTEM ATTENDANT [facility] HCT 31.2(L) 36.0 - 47.0 % 12/07/2024 4:22 PM [facility] MCV 88.4 78.0 - 100.0 FL 12/07/2024 4:22 PM SCRUBBER SYSTEM ATTENDANT [facility] MCH 29.5 27.0 - 31.0 PG 12/07/2024 4:22 PM [facility] MCHC 33.3 33.0 - 36.0 G/DL 12/07/2024 4:22 PM [facility] RDW 12.3 11.5 - 14.5 % 12/07/2024 4:22 PM [facility] PLT 387(H) 150 - 350 x10'3/uL 12/07/2024 4:22 PM [facility] MPV 10.1 7.4 - 10.4 FL 12/07/2024 4:22 PM [facility] CBC COMMENT NORMAL REFERENCE RANGE NOT ESTABLISHED FOR THE PROPORTIONAL LEUKOCYTE DIFFERENTIAL. 12/07/2024 4:22 PM [facility] NEUTROPHILS % 68.9 % 12/07/2024 4:22 PM SCRUBBER SYSTEM ATTENDANT [facility] LYMPHOCYTES % 19.2 % 12/07/2024 4:22 PM SCRUBBER SYSTEM ATTENDANT [facility] MONOCYTES % 5.7 % 12/07/2024 4:22 PM SCRUBBER SYSTEM ATTENDANT [facility] EOSINOPHILS % 5.3 % 12/07/2024 4:22 PM SCRUBBER SYSTEM ATTENDANT [facility] BASOPHILS % 0.5 % 12/07/2024 4:22 PM SCRUBBER SYSTEM ATTENDANT [facility] IMMATURE GRANS % 0.4 % 12/07/19 4:22 PM SCRUBBER SYSTEM ATTENDANT [facility] NRBC % 0.0 % 12/07/2024 4:22 PM SCRUBBER SYSTEM ATTENDANT [facility] ABS. NEUTROPHILS 7.31 1.60 - 8.30 x10'3/uL 12/07/2024 4:22 PM SCRUBBER SYSTEM ATTENDANT [facility] ABS. LYMPHOCYTES 2.03 0.80 - 4.70 x10'3/uL 12/07/2024 4:22 PM SCRUBBER SYSTEM ATTENDANT [facility] ABS. MONOCYTES 0.60 0.00 - 1.50 x10'3/uL 12/07/2024 4:22 PM SCRUBBER SYSTEM ATTENDANT [facility] ABS. EOSINOPHILS 0.56(H) 0.00 - 0.40 x10'3/uL 12/07/2024 4:22 PM SCRUBBER SYSTEM ATTENDANT [facility] ABS. BASOPHILS 0.05 0.00 - 0.20 x10'3/uL 12/07/2024 4:22 PM SCRUBBER SYSTEM ATTENDANT [facility] ABS. IMMATURE GRANULOCYTES 0.04(H) 0.00 - 0.03 x10'3/uL 12/07/2024 4:22 PM SCRUBBER SYSTEM ATTENDANT [facility] ABS. NUCLEATED RBC'S 0.00 0.00 - 0.01 x10'3/uL 12/07/2024 4:22 PM SCRUBBER SYSTEM ATTENDANT [facility] 12/07/2024 4:10 PM SCRUBBER SYSTEM ATTENDANT us Sammi Camacho PA-C LABORATORY Final Resu lt [facility] [address] [place] [address], [place] [phone] * (ABNORMAL) ALBUMIN CREATININE URINE RANDOM (12/07/2024 4:05 PM SCRUBBER SYSTEM ATTENDANT) Pathologist [facility] ALBUMIN (U) 501.3 MG/DL 12/07/2024 6:25 PM SCRUBBER SYSTEM ATTENDANT [facility] Comment:REFERENCE RANGE NOT ESTABLISHED CREATININE RANDOM (U) 89.6 MG/DL 12/07/2024 6:25 PM SCRUBBER SYSTEM ATTENDANT [facility] Comment:REFERENCE RANGE NOT ESTABLISHED ALBUMIN/CREAT RATIO 5,594.9(H) <30 MG/G 12/07/2024 6:25 PM SCRUBBER SYSTEM ATTENDANT [facility] Comment: NORMAL TO MILDLY INCREASED ALBUMINURIA: <30 MG/G MODERATELY INCREASED ALBUMINURIA: 30 TO 300 MG/G SEVERELY INCREASED ALBUMINURIA: >300 MG/G PER KDIGO URINE SPECIMEN / Unknown 12/07/2024 4:05 PM SCRUBBER SYSTEM ATTENDANT Sammi Camacho PA-C URINE ORDERABLES Final Res ult Performing Organization Address City/[facility]/ZIP Co de Phone Number [facility] [place] [address], [place] [phone] * HEPATITIS C ANTIBODY (03/05/2022 2:32 PM CDT) [facility] HEPATITIS C AB NON-REACTI VE NON-REACT ANTONETTE 03/06/2022 1:35 PM CDT [facility] Comment: ANTIBODIES TO HCV NOT DETECTED. DOES NOT EXCLUDE THE POSSIBILITY OF EXPOSURE TO HCV. 03/05/2022 2:32 PM CDT Evon Conley MD LABORATORY Final Resu lt Performing Organization Address City/[facility]/ZIP Co de Phone Number [facility] [address] [place] [address], [place] [phone] from Last 3 Months or Most Recently Relevant to Health Maintenance Insurance [employer] Care Teams Support Team Assoc Relationship Specialty Start Date End Date Carlos Enrique Posada MD [address] [place] [phone] PCP - General INTERNAL MEDICINE 10/30/21
--- OUTSIDE RECORDS SUMMARY | 2024-12-15 10:59 | XMS_ITS | Encounter Summary ---
Author Organization [facility] Address [address] [place] [address] Care Team Providers Care School Business Manager Name Role Phone Carlos Enrique Posada MD Primary Care Provider [phone] Encounter Details Date Type Department Care Team (Late st Contact Info) Description 01/08/2018 Abstract [facility] CONVERSION [address] [place] [address] , Generic Conversion, Social History Tobacco Use Types Packs/Day Years Used Date Smoking Tobacco: Never Assessed Comments Unknown Sex and Gender Information Value Date Recorded Sex Assigned at Female 12/07/2024 3:33 PM PHYSICAL THERAPY AID Legal Sex Female 8:04 PM CDT Gender Identity Not on file Sexual Orientation Not on file documented as of this encounter Plan of Treatment Not on file documented as of this encounter Visit Diagnoses Not on filedocumented in this encounter Care Teams School Business Manager Relationship Specialty Start Date End Date Carols Enrique Posada MD [address] [place] [phone] PCP - General INTERNAL MEDICINE 10/30/21 documented as of this encounter
--- OUTSIDE RECORDS SUMMARY | 2024-12-15 10:59 | XMS_ITS | Data Portability ---
Author Organization [facility], [address] [place] [address] Neurology ([place]) Address [address] [place] [address] Care Team Providers Care Promotions Team Leader Name Role Phone TRISTIAN SCHAFER Primary Care Provider SAMMI LEE Telephoto Engineer Assessment Encounter Date Assessment Date Assessment LastModified by Organization Details LastModified Time 04/20/2024 04/20/2024 Ms. Tran is a pleasant 38-year-old female with a past medical history significant for type 2 diabetes mellitus with microvascular and macrovascular complications since 2002 at the time of initial diagnosis her hemoglobin A1c was persistently greater than 10 with patient having an episode of diabetic ketoacidosis at which time patient was started on insulin status post kidney biopsy consistent with diabetic nephropathy in March 2022, chronic kidney disease stage IV with a baseline serum creatinine ranging between 1.8 2.0 and nephrotic range proteinuria who is here for follow-up appointment. Chronic kidney disease stage IV with a baseline serum creatinine range between 1.8 2.0 Patient is an episode of THEE her serum creatinine peaked at 2.4 Patient's most recent serum creatinine is noted to be 2.02 with a GFR of 31. Patient is currently on Jardiance 25 mg daily along with her verapamil, torsemide, losartan and spironolactone. She was previously increased to spironolactone 25 p.o. twice daily however her potassium is now elevated at 5.4. Will decrease her spironolactone back to 1 tab daily and she will watch a low potassium diet. Her sodium is within normal range. Patient continues to hydrate well and to avoid NSAIDs. Discussed about KDIGO recommendations to prevent CKD progression -Advised to undertake moderate-intensity physical activity for a cumulative duration of at least 150 minutes per week, or to a level compatible with their cardiovascular and physical tolerance -Patients should consume a balanced, healthy diet that is high in vegetables, , plant-based proteins, unsaturated fats, and lower in processed meats, refined carbohydrates, and sweetened beverages. -Sodium (<2 g/day) and protein intake (0.8 g/kg/day) in accordance with recommendations for the general population. - Suggest NOT to prescribe bisphosphonate treatment in people with GFR o30 ml/min/1.73 m2 (GFR categories G4-G5) without a strong clinical rationale. -Individualize Hba1c target goal of 6.5 to 8 % based on underlying comorbidities -Cessation of tobacco -Avoid Nephrotoxic agents -such as NSAIDS renal dosage of all medications to the appropriate GFR -Reduce albuminuria with use of ELIZABETH inhibitor or ARB -initiation of SGLT-2 Inhibitors if appropriate indication. Nephrotic range proteinuria Patient's most recent urine microalbumin/creat inine ratio was noted to be 8955.2. Patient is going to switch from the [facility] back to the [facility]. She does note that she seemed like her protein was better on this. Patient is given an order today for 24-hour total urine protein. Type 2 diabetes mellitus Target hemoglobin A1c is 7.0 or below. Patient will continue to follow with her PCP for ongoing diabetes management. CKD/MBD Calcium and phosphorus are within normal range. Anemia of chronic disease Patient's hemoglobin is stable with no indication for SANCHEZ. The patient had the opportunity to ask and have questions answered. The patient voiced an understanding of the diagnosis and of the care plan and intent to comply with it. [email or web address] Not available 04/20/2024 16:57:52 Plan of Treatment Reminders Order Date Submit Date Provider Last Modified By Organization Details Last Modified Time Details Appointments Establish ed Patient 15.EST 2024 02:30P M Sammi Lee Not available Not available Not available Establish ed Patient 15.EST 2024 12:30P M Dr. Milind Reece Not available Not available Not available Lab None recorded. Referral None recorded. Procedures None recorded. Surgeries None recorded. Imaging None recorded. Medication Orders None recorded. Patient TargetsNo targets recorded. Patient InstructionsNo instructions recorded. Reason for Referral None Reported. Results Created Date Observation Date Name Description Value Unit Range Abnormal Flag Note LastModifiedBy Organization Detail LastModifiedTime Result Notes None recorded. Problems Name Problem SNOMED Code Status Onset Date Resolution Date Notes Provider Name and Address Organization Details Recorded Time Chronic kidney disease stage 3 222024457 [facility] Proteinuria 59129836 [facility] Type 2 diabetes mellitus 65815508 [facility] Problem Notes None recorded. Medical Equipment None Reported. Allergies Allergen ID Allergen Name Allergen Category Reaction Reaction Severity Criticality Documentation Date Start Date Code Code System Note Provider Name and Address Organization Details Recorded Time 6381483 acetamino phen / hydrocodo ne medicatio n Not available Not available Not available 11/24/20232021 41789 2 RxNorm Not Available Not Available Not Available 1998068 tramadol Not available Not available Not available Not available 11/24/20232021 18764 RxNorm Not Available Not Available Not Available [id number] Tylenol with Codeine medicatio n Not available Not available Not available 11/24/20232022 23223 6 RxNorm Not Available Not Available Not Available Medications Name Sig Start Date Stop Date Status Note LastModified by Organization Details LastModified Time losartan 50 mg tablet TAKE 1 TABLET BY MOUTH EVERY DAY 04/20 completed Not Available Not Available Not Available atorvastati n 40 mg tablet TAKE 1 TABLET BY MOUTH EVERY DAY active Not Available Not Available No t Available torsemide 20 mg tablet TAKE 1 TABLET BY MOUTH EVERY DAY DIRECTED active Not Available Not Available No t Available atorvastati n 10 mg tablet TAKE 1 TABLET BY MOUTH EVERYDAY AT BEDTIME active Not Available Not Available No t Available azithromyci n 250 mg tablet TAKE 2 TABLETS BY MOUTH TODAY, THEN TAKE 1 TABLET DAILY FOR 4 DAYS DIRECTED 04/20 completed Not Available Not Available Not Available ofloxacin 0.3 % eye drops INSTILL 1 DROP LEFT EYE 4 TIMES A DAY active Not Available Not Available No t Available fluconazole 150 mg tablet TAKE 1 TABLET NOW AND THEN SECOND DOSE 3 DAYS AFTER FIRST DOSE. 04/20 completed Not Available Not Available Not Available famotidine 40 mg tablet TAKE 1 TABLET BY MOUTH TWICE A DAY active Not Available Not Available No t Available metronidazo le 250 mg tablet TAKE 1 TABLET BY MOUTH THREE TIMES A DAY active Not Available Not Available No t Available verapamil ER (SR) 180 mg tablet,exte nded release TAKE 1 TABLET BY MOUTH EVERY DAY WITH FOOD active Not Available Not Available No t Available acetaminoph en 300 mg-codeine 30 mg tablet TAKE 1 TO 2 TABLETS EVERY 4 TO 6 HOURS NEEDED FOR PAIN active Not Available Not Available No t Available spironolact one 25 mg tablet TAKE 1 TABLET BY MOUTH TWICE A DAY active Not Available Not Available No t Available ketorolac 0.5 % eye drops INSTILL 1 DROP INTO LEFT EYE TWICE A DAY 04/20 completed Not Available Not Available Not Available prednisolon e acetate 1 % eye drops,suspe nsion INSTILL 1 DROP LEFT EYE 4 TIMES A DAY active Not Available Not Available No t Available dexamethaso ne 1 mg tablet TAKE DEXA TABLET BY MOUTH AT 10 PM NIGHT BEFORE 8 AM CORTISOL 04/20 completed Not Available Not Available Not Available cephalexin 500 mg capsule TAKE 1 CAPSULE BY MOUTH FOUR TIMES A DAY 04/20 completed Not Available Not Available Not Available losartan 25 mg tablet TAKE 1 TABLET BY MOUTH AT BEDTIME WITH 50MG 04/20 completed Not Available Not Available Not Available Novolog U-100 Insulin aspart 100 unit/mL subcutaneou s solution INJECT UP TO 200 UNITS SUBCUTANE OUSLY DAILY X 90 DAYS active Not Available Not Available No t Available ondansetron 4 mg disintegrat ing tablet 1 TABLET ON TONGUE EVERY EIGHT TO TWELVE HOURS NEEDED active Not Available Not Available No t Available losartan 100 mg tablet TAKE 1 TABLET BY MOUTH EVERY DAY active Not Available Not Available No t Available metformin ER 500 mg tablet,exte nded release 24 hr TAKE 1 TABLET BY MOUTH TWICE A DAY WITH FOOD active Not Available Not Available No t Available atenolol 50 mg tablet TAKE 1 TABLET BY MOUTH IN THE EVENING active Not Available Not Available No t Available rizatriptan 5 mg tablet TAKE 1 TABLET BY MOUTH ONCE, MAY REPEAT AT 2 HR INTERVALS . DO NOT EXCEED 30 MG IN 24 HOURS active Not Available Not Available No t Available escitalopra m 10 mg tablet TAKE 1 TABLET BY MOUTH EVERY DAY active Not Available Not Available No t Available Synthroid 137 mcg tablet TAKE 1 TABLET BY MOUTH EVERY DAY IN THE MORNING active Not Available Not Available No t Available Farxiga 10 mg tablet Take 1 tablet every day by oral route. 2023 active Not Available Not Available Not Avai lable Jardiance 10 mg tablet Take 1 tablet every day by oral route. 2023 active Not Available Not Available Not Avai lable Jardiance 25 mg tablet 1 tablet daily 2023 active Not Available Not Available Not Avai lable Repatha SureClick 140 mg/mL subcutaneou s pen injector INJECT 1 ML EVERY 2 WEEKS BY SUBCUTANE OUS ROUTE IN THE MORNING FOR 90 DAYS. active Not Available Not Available No t Available Dexcom G6 Sensor device CHANGE SENSOR EVERY 10 DAYS active Not Available Not Available No t Available Dexcom G6 Transmitter device CHANGE TRANSMITT ER EVERY 90 DAYS active Not Available Not Available No t Available Ozempic 2 mg/dose (8 mg/3 mL) subcutaneou s pen injector INJECT 2 MG EVERY WEEK BY SUBCUTANE OUS ROUTE AT DINNER FOR 90 DAYS. active Not Available Not Available No t Available Omnipod 5 G6 Pods (Gen 5) subcutaneou s cartridge USE ONE EVERY 3 DAYS FOR 90 DAYS active Not Available Not Available No t Available Paxlovid 150 mg-100 mg tablets in a dose pack (Renal Dose) TAKE BY ORAL ROUTE 2 TIMES PER DAY PER PACKAGE DIRECTION S FOR 5 DAYS active Not Available Not Available No t Available Vitals Date Recorded Body height Heart rate Systolic blood pressure Diastolic blood pressure Provider Name and Address Organization Details Last Updated DateTime 04/20/2024 165.1 cm 75 /min 132 mm[Hg] 70 mm[Hg] [facility] 04/20/2024 16:09:28 Social History None recorded. Functional Status None recorded. Mental Status None recorded. Family History Nothing Reported. Medical History Condition Response Cancer N Anemia N Gynecological HistoryNo gynecological history recorded. Obstetrics History GPAL:G 0 P 0 0 0 0 Past Encounters Encounter ID Performer Location Encounter Start Date Encounter Closed Date Diagnosis/Indication Diagnosis SNOMED-CT Code Diagnosis ICD10 Code Diagnosis Note [id number] Sammi Lee PA-C [facility] ([place]) [address] [facility] [place] [address] 04/20/2024 15:57:43 04/20/2024 16:32:16 Chronic kidney disease stage 3 511892433 N18.30 Health Concerns Section Related Observation LastModified by Organization Detai ls LastModified Time None Recorded Concern Status LastModified by Organization Details LastModified Time None Recorded Advance Directives Directive None Recorded Payers Encounter Date Sequence Insurance Name Policy Number Policy Prasad Covered Member ID Prasad Member ID Guarantor Name 04/20/2024 1 [employer] [id number] Ailyn Tran [id number] Ailyn Tran Notes Date Note Type Note Provider Name and Address Organization Details Recorded Time 04/20/2024 text/html Ms. Tran is a pleasant 38-year-old female with a past medical history significant for type 2 diabetes mellitus with microvascular and macrovascular complications since 2002 at the time of initial diagnosis her hemoglobin A1c was persistently greater than 10 with patient having an episode of diabetic ketoacidosis at which time patient was started on insulin status post kidney biopsy consistent with diabetic nephropathy in March 2022, chronic kidney disease stage IV with a baseline serum creatinine ranging between 1.8 2.0 and nephrotic range proteinuria who is here for follow-up appointment. She denies any fever, chills, or sweats.She denies any chest pain or shortness of breath.Patient had been on Farxiga and then had to switch to Jardiance for insurance reasons and is now switching back to Farxiga due to insurance reasons.Patient continues to hydrate well and to avoid NSAIDs. Sammi Lee PA-C [address] [place] [address], [phone], [facility] 04/20/2024 16:58:10 OBGyn Episode No OBEpisode recorded.
[2024-12-15 11:03] LABS: INR 0.9; Prothrombin Time 12.8 Seconds (11.1-14.7)
[2024-12-15 11:04] LABS: Partial Thromboplastin Time 30.6 Seconds (22.3-36.8)
[2024-12-15 11:09] LABS: Anion Gap 7 mmol/L (4-12); Blood Urea Nitrogen 33 mg/dL (7-17); Calcium 8.3 mg/dL (8.4-10.2); Carbon Dioxide 20 mmol/L (22-30); Chloride 111 mmol/L (98-107); Estimated Glomerular Filt Rate 23; Glucose 130 mg/dL (65-110); Potassium 4.6 mmol/L (3.4-5.0); Sodium 138 mmol/L (137-145)
== END 2024-12-15 10:22 | disposition home or self-care (01) ==
LOC: ANHSURGERY 10:25
PROVIDERS: Anesthesiology; PCP Internal Medicine; Visit Provider Obstetrics & Gynecology
DX: N28.9 Disorder of kidney and ureter, unspecified (principal); I10 Essential (primary) hypertension; E11.9 Type 2 diabetes mellitus without complications; Z01.818 Encounter for other preprocedural examination
CPT/HCPCS: 36415; 80048; 85610; 85730; 93005

== ENCOUNTER 2024-12-20 01:28 | Day surgery (SDC) | payer OTHER, SELFPAY ==
[2024-12-12 09:19] VITALS: BMI 37.4
--- NOTE | 2024-12-12 09:26 | PC.NURSE ---
Report to the Outpatient Waiting Room, entrance under the green pavilion located off [facility], at time _0800_ on date _12/20/24. Planned Procedure Time: _1000_.? Time changes happen often and if your time is changed the preop area will call you the afternoon before. - You and your visitor will be asked to self-screen and do not enter if you have any COVID symptoms. Please call surgeon if you need to reschedule. - A mask is optional within the hospital at this time. Patients may have clear liquids (water, carbonated beverages, clear teas, apple juice) until 3 hours prior to surgery with a maximum of 20 ounces. - No food from midnight until time of surgery and no smoking, or chewing tobacco (or any form of nicotine). No chewing gum, candy or mints. - Infants may have breast milk until 4 hours before surgery, infant formula 6 hours prior to surgery. - Children will be allowed to drink immediately following surgery.? If applicable, please bring a bottle or sippy cup to assist with drinking. Juice, water, soda, and popsicles are readily available.? For infants on formula, please bring formula the day of surgery.? Pacifiers are allowed. Take only the following medications with a SIP of water on the morning of surgery: __ESCITALOPRAM, SYNDROID, VERAPAMIL DO NOT STOP ANY OF YOUR OTHER PRESCRIPTION MEDICATIONS PRIOR TO SURGERY EXCEPT THE FOLLOWING Hold all vitamins and supplements for 3 days per anesthesiologist. Please no make-up, nail hungarian, hairspray, perfume, deodorant, or body powder the day of surgery.? No jewelry (including any body piercings) or valuables the day of surgery, leave them at home.? Please take a shower or bath the night before, or the morning of, surgery with an antibacterial soap.? Wear comfortable, loose fitting clothing.? Children are encouraged to wear pajamas. - Jewelry must be removed prior to entering the operating room.? Rings and piercings that are not removed may be cut off. - The hospital will not accept responsibility for valuables.? - Please leave all valuables, including medications, at home the day of surgery. If you are going home after surgery, a licensed bellman driver must drive you home.? - NO public transportation without another adult if you receive anesthesia. - We recommend that an adult stay with you for 24 hours following discharge. - We also recommend that you do not drive, make important decision, drink alcoholic beverages, or take any drugs that were not prescribed by your health care provider for at least 24 hours after your discharge time. For Pediatric surgeries, we recommend two adults accompany the child home. Follow any additional instructions given to you from your surgeon. Telephone instructions given to _PATIENT_and asked if any additional questions and then verbalized understanding. Patient advised to call surgeon office or pre surgery nurse liaison [phone] if any additional questions.
[2024-12-20] VITALS (8 sets, daily range): BP systolic 120–164; BP diastolic 70–93; PULSE 75–86; RESP 14–20; TEMP 36.3–36.5; O2SAT 91–100
--- OUTSIDE RECORDS SUMMARY | 2024-12-20 01:30 | XMS_ITS | Data Portability ---
Author Organization [place] [facility], Main Office Address [address] [place] [address] Assessment No assessment recorded. Plan of Treatment Reminders Order Date Submit Date Provider Last Modified By Organization Details Last Modified Time Details Appointments None recorded. Lab cortisol, am, serum [address], [address] [place] [address], [address], 3 11:10:40 dexamethaso ne, serum [address], [address] [place] [address], [address], 3 11:10:40 lipid panel, serum [address] [place] [address], [address] [place] [address], [address], 3 11:10:12 CMP, serum or plasma [address], [address] [place] [address], [address], 3 11:10:12 HbA1c (hemoglobin A1c), blood [address], [address] [place] [address], [address], 3 11:10:12 microalbumi n/creatinin e, mass ratio, urine [address], [address] [place], [address], 3 11:10:12 T3, free, serum or plasma [address], [address] [place], [address], 3 11:10:12 TSH + free T4, serum [address], [address] [place], [address], 3 11:10:12 thyroid peroxidase (tpo) Ab, serum [address], [address] [place], [address], 3 11:10:12 Referral None recorded. Procedures None recorded. Surgeries None recorded. Imaging None recorded. Medication Orders dexamethaso ne 1 mg tablet 2022 023 [facility]/Pharmacy #[id number], [address] [place], [address], 3 11:08:20 Repatha SureClick 140 mg/mL subcutaneou s pen injector 2022 023 [facility]/Pharmacy #[id number], [address] [place], [address], 3 11:06:37 Novolog U-100 Insulin aspart 100 unit/mL subcutaneou s solution 2022 023 [facility]/Pharmacy #[id number], [address] [place], [address], 3 11:03:19 Ozempic 2 mg/dose (8 mg/3 mL) subcutaneou s pen injector 2022 023 [facility]/Pharmacy #[id number], [address] [place], [address], 3 11:03:55 Synthroid 137 mcg tablet 2022 023 [facility]/Pharmacy #[id number], [address] [place], [address], 3 11:04:20 Patient TargetsNo targets recorded. Patient InstructionsNo instructions recorded. Reason for Referral None Reported. Results Created Date Observation Date Name Description Value Unit Range Abnormal Flag Note LastModifiedBy Organization Detail LastModifiedTime 09/26/20 21 09/30/2021 HEMOG LOBIN A1C hemoglobin A1C 9.6 %_of_ total _HGB <5.7 high For alanna adams witho ut known diabe juarez, a hemog lobin A1c value of 6.5% or great er indic ates that they may have diabe juarez and this shoul d be confi rmed with a follo w-up test. For alanna ne with known diabe juarez, a value <7% indic ates that their diabe juarez is well contr olled and a value great er than or equal to 7% indic ates subop timal contr ol. A1c targe ts shoul d be indiv idual ized based on durat ion of diabe juarez, age, comor bid condi tions , and other consi derat ions. Curre ntly, no conse nsus exist s scotty carlisle use of hemog lobin A1c for diagn osis of diabe juarez for child stalin. Not Available [facility] [address] [place], [address], 09/30/2021 13:25:16 09/26/20 21 09/30/2021 T3, FREE T3, free 3.4 pg/mL 2.3-4. 2 normal Not Available [facility] [address] [place], [address], 09/30/2021 13:25:15 09/26/20 21 09/30/2021 TSH TSH 9.11 mIU/L high Refer ence Range > or = 20 Years 0.40- 4.50 Pregn jeff Range s First trime ster 0.26- 2.66 Secon d trime ster 0.55- 2.73 Third trime ster 0.43- 2.91 Not Available [address] [address] [place], [address], 09/30/2021 13:25:15 09/26/20 21 09/30/2021 T4, FREE T4, free 1.0 NG/dL 0.8-1. 8 normal Not Available [address] [address] [place], [address], 09/30/2021 13:25:14 09/26/20 21 09/30/2021 THYRO ID PEROX IDASE ANTIB ODIES thyroid peroxidase antibodies 44 IU/mL <9 high Not Available [address], [address], 09/30/2021 13:25:14 09/26/20 21 09/30/2021 CYCLI C CITRU LLINA ROBERT PEPTI DE (CCP) AB (IGG) cyclic citrullinate d peptide (ccp) Ab (IgG) <16 units normal Refer ence Range Negat antonette: <20 Weak Posit antonette: 20-39 Moder ate Posit antonette: 40-59 Stron g Posit antonette: >59 Not Available [address] [address] [place], [address], 09/30/2021 13:25:13 09/26/20 21 09/30/2021 RHEUM ATOID FACTO R rheumatoid factor <14 IU/mL <14 normal Not Available [address] [address] [place], [address], 09/30/2021 13:25:12 09/26/20 21 09/30/2021 ANTIN UCLEA R ANTIB ODIES TITER AND PATTE RN CONSTANTINO titer 1:320 titer high Refer ence Range <1:40 Negat antonette 1:40- 1:80 Low Antib neymar Level >1:80 Hunnewell robert Antib neymar Level Not Available [address] [address] [place], [address], 09/30/2021 13:25:12 09/26/20 21 09/30/2021 ANTIN UCLEA R ANTIB ODIES TITER AND PATTE RN CONSTANTINO pattern nuclea r, speckl ed abnormal Speck led patte rn is assoc iated with mixed conne ctive tissu e disea se (MCTD ), syste marcus lupus eryth emato bam (SLE) , Sjogr en's syndr ome, derma tomyo sitis , and syste marcus scler osis/ polym yosit is overl ap. AC-2, 4,5,2 9: Speck led Inter natio nal Conse nsus on CONSTANTINO Patte rns (http s://d oi.or g/ 1515/ ccl51) Not Available [address] [address] [address], [place], [address], 09/30/2021 13:25:12 09/26/20 21 09/30/2021 ANTIN UCLEA R ANTIB ODIES TITER AND PATTE RN CONSTANTINO titer 1:320 titer high Refer ence Range <1:40 Negat antonette 1:40- 1:80 Low Antib neymar Level >1:80 Hunnewell robert Antib neymar Level Not Available [address] [address] [place], [address], 09/30/2021 13:25:12 09/26/20 21 09/30/2021 ANTIN UCLEA R ANTIB ODIES TITER AND PATTE RN CONSTANTINO pattern nuclea r, homoge neous abnormal Homog eneou s patte rn is assoc iated with syste marcus lupus eryth emato bam (SLE) , drug- induc ed lupus and kristin ile idiop athic arthr itis. AC-1: Homog eneou s Inter natio nal Conse nsus on CONSTANTINO Patte rns (http s://d oi.or g/10. 1515/ ccl51) Not Available [address] [address] [place], [address], 09/30/2021 13:25:12 09/26/20 21 09/30/2021 CONSTANTINO SCREE N, IFA, W/REF L TITER AND TIANNA RN CONSTANTINO screen, ifa positi ve negati ve abnormal CONSTANTINO IFA is a first line scree n for detec ting the prese nce of up to appro ximat tavo 150 autoa ntibo dies in vario us autoi mmune disea ses. A posit antonette CONSTANTINO IFA resul t is sugge stive of autoi mmune disea se and refle xes to titer and tianna neville. Furth er labor atory testi ng may be consi dered if clini cody indic ated. For addit ional infor say mccray refer to http: //[facility] myriam menon.Que stDia gnost ics.c om/fa q/FAQ 177 (This link is being provi ded for infor kylah russo/ joanne alfonso purpo ses only. ) Not Available [address] [address] [place], [address], 09/30/2021 13:25:11 09/26/20 21 09/30/2021 ALBUM IN, RANDO M URINE W/CRE ATINI NE creatinine, random urine 159 mg/dL 20-[address] [facility] [address] [place], [address], 09/30/2021 13:25:11 09/26/20 21 09/30/2021 ALBUM IN, RANDO M URINE W/CRE ATINI NE albumin, urine 305.0 mg/dL see note: normal Refer ence Range : Refer ence Range Not estab lishe d Verif ied by pattie lopez mayur sis. Not Available [facility] [address] [place], [address], 09/30/2021 13:25:11 09/26/20 21 09/30/2021 ALBUM IN, RANDO M URINE W/CRE ATINI NE albumin/crea tinine ratio, random urine 1918 mcg/m g_cre at <30 high The ADA defin es abnor malit ies in album in excre tion as follo ws: Album inuri a Categ ory Resul t (mcg/ mg creat inine ) Yara l to Mildl y incre ased <30 Moder ately incre ased 30-29 9 Sever tavo incre ased > OR = 300 The ADA recom mends that at least two of three speci mens colle cted withi n a 3-6 month perio d be abnor mal befor e consi maricel g a patie nt to be withi n a diagn ostic categ ory. Not Available [facility] [employer] [address] [address] [place], [address], 09/30/2021 13:25:11 09/26/20 21 09/30/2021 COMPR EHENS ANTONETTE METAB OLIC PANEL glucose 217 mg/dL 65-99 high Fasti ng refer ence inter leslie For someo ne witho ut known diabe juarez, a gluco se value >125 mg/dL indic ates that they may have diabe juarez and this shoul d be confi rmed with a follo w-up test. Not Available [address] [address] [place], [address], 09/30/2021 13:25:10 09/26/20 21 09/30/2021 COMPR EHENS ANTONETTE METAB OLIC PANEL urea nitrogen (BUN) 16 mg/dL 7-25 normal Not Available [facility] [address] [address] [place], [address], 09/30/2021 13:25:10 09/26/20 21 09/30/2021 COMPR EHENS ANTONETTE METAB OLIC PANEL creatinine 0.74 mg/dL 0.50-1 .10 normal Not Available [facility] [address] [address] [place], [address], 09/30/2021 13:25:10 09/26/20 21 09/30/2021 COMPR EHENS ANTONETTE METAB OLIC PANEL eGFR non-afr. [place] citizen 103 mL/mi n/1.7 3m2 > or = 60 normal Not Available [address] [address] [place], [address], 09/30/2021 13:25:10 09/26/20 21 09/30/2021 COMPR EHENS ANTONETTE METAB OLIC PANEL eGFR 119 mL/mi n/1.7 3m2 > or = 60 normal Not Available [address], [address], 09/30/2021 13:25:10 09/26/20 21 09/30/2021 COMPR EHENS ANTONETTE METAB OLIC PANEL BUN/creatini ne ratio not applic able (calc ) 6-22 Not Available [address], [address], 09/30/2021 13:25:10 09/26/20 21 09/30/2021 COMPR EHENS ANTONETTE METAB OLIC PANEL sodium 136 mmol/ L 135-14 6 normal Not Available [address], [address], 09/30/2021 13:25:10 09/26/20 21 09/30/2021 COMPR EHENS ANTONETTE METAB OLIC PANEL potassium 4.8 mmol/ L 3.5-5. 3 normal Not Available [address], [address], 09/30/2021 13:25:10 09/26/20 21 09/30/2021 COMPR EHENS ANTONETTE METAB OLIC PANEL chloride 103 mmol/ L 98-110 normal Not Available [address], [address], 09/30/2021 13:25:10 09/26/20 21 09/30/2021 COMPR EHENS ANTONETTE METAB OLIC PANEL carbon dioxide 27 mmol/ L 20-32 normal Not Available [address], [address], 09/30/2021 13:25:10 09/26/20 21 09/30/2021 COMPR EHENS ANTONETTE METAB OLIC PANEL calcium 8.4 mg/dL 8.6-10 .2 low Not Available [address], [address], 09/30/2021 13:25:10 09/26/20 21 09/30/2021 COMPR EHENS ANTONETTE METAB OLIC PANEL protein, total 6.0 g/dL 6.1-8. 1 low Not Available [address], [address], 09/30/2021 13:25:10 09/26/20 21 09/30/2021 COMPR EHENS ANTONETTE METAB OLIC PANEL albumin 3.4 g/dL 3.6-5. 1 low Not Available [address], [address], 09/30/2021 13:25:10 09/26/20 21 09/30/2021 COMPR EHENS ANTONETTE METAB OLIC PANEL globulin 2.6 g/dL_ (calc ) 1.9-3. 7 normal Not Available [address], [address], 09/30/2021 13:25:10 09/26/20 21 09/30/2021 COMPR EHENS ANTONETTE METAB OLIC PANEL albumin/glob ulin ratio 1.3 (calc ) 1.0-2. 5 normal Not Available [address], [address], 09/30/2021 13:25:10 09/26/20 21 09/30/2021 COMPR EHENS ANTONETTE METAB OLIC PANEL bilirubin, total 0.3 mg/dL 0.2-1. 2 normal Not Available [address], [address], 09/30/2021 13:25:10 09/26/20 21 09/30/2021 COMPR EHENS ANTONETTE METAB OLIC PANEL alkaline phosphatase 88 U/L 31-125 normal Not Available [address] [address] [place], [address], 09/30/2021 13:25:10 09/26/20 21 09/30/2021 COMPR EHENS ANTONETTE METAB OLIC PANEL AST 13 U/L 10-30 normal Not Available [address] [address] [place], [address], 09/30/2021 13:25:10 09/26/20 21 09/30/2021 COMPR EHENS ANTONETTE METAB OLIC PANEL ALT 13 U/L 6-29 normal Not Available [address] [address] [place], [address], 09/30/2021 13:25:10 09/26/20 21 09/30/2021 LIPID PANEL , STAND JERE non HDL cholesterol 150 mg/dL _(baldo c) <130 high For patie nts with diabe juarez plus 1 major ASCVD risk facto r, treat ing to a non-H DL-C goal of <100 mg/dL (LDL- C of <70 mg/dL ) is garcia hedricko n. Not Available [address] [address] [place], [address], 09/30/2021 13:25:10 09/26/20 21 09/30/2021 LIPID PANEL , STAND JERE cholesterol, total 197 mg/dL <200 normal Not Available [address] [address] [place], [address], 09/30/2021 13:25:10 09/26/20 21 09/30/2021 LIPID PANEL , STAND JERE HDL cholesterol 47 mg/dL > or = 50 low Not Available [address] [address] [place], [address], 09/30/2021 13:25:10 09/26/20 21 09/30/2021 LIPID PANEL , STAND JERE triglyceride s 97 mg/dL <150 normal Not Available [facility] [address] [place] [address], [address], 09/30/2021 13:25:10 09/26/20 21 09/30/2021 LIPID PANEL , STAND JERE LDL-choleste rol 130 mg/dL _(baldo c) high Refer ence range : <100 Nolberto able range <100 mg/dL for prima ry preve ntion ; <70 mg/dL for patie nts with CHD or diabe tic patie nts with > or = 2 CHD risk facto rs. LDL-C is now calcu lated using the Deb n-Hop kins calcu garcía n, which is a valid ated novel rhona mireles r accur acy than the Fried lay equat ion in the estim ation of LDL-C . Deb menon SS et al. ZACHERY. 2013; 310(1 9): 2061- 2068 (http ://ed ucati on.Qu [employer]. com/f aq/FA Q164) Not Available [facility] [address] [address] , [place], [address], 09/30/2021 13:25:10 09/26/20 21 09/30/2021 LIPID PANEL , STAND JERE chol/HDLC ratio 4.2 (calc ) <5.0 normal Not Available [facility] [address] [place] [address], [address], 09/30/2021 13:25:10 01/03/20 22 01/05/2022 HEMOG LOBIN A1C hemoglobin A1C 8.9 %_of_ total _HGB <5.7 high For someo ne witho ut known diabe juarez, a hemog lobin A1c value of 6.5% or great er indic ates that they may have diabe juarez and this shoul d be confi rmed with a follo w-up test. For someo ne with known diabe juarez, a value <7% indic ates that their diabe juarez is well contr olled and a value great er than or equal to 7% indic ates subop timal contr ol. A1c targe ts shoul d be indiv idual ized based on durat ion of diabe juarez, age, comor bid condi tions , and other consi derat ions. Curre ntly, no conse nsus exist s scotty carlisle use of hemog lobin A1c for diagn osis of diabe juarez for child stalin. Not Available [address] [place], [address], 01/05/2022 14:51:30 01/03/20 22 01/05/2022 T3, FREE T3, free 2.8 pg/mL 2.3-4. 2 normal Not Available [address] [place], [address], 01/05/2022 14:51:30 01/03/20 22 01/05/2022 TSH TSH 5.33 mIU/L high Refer ence Range > or = 20 Years 0.40- 4.50 Pregn jeff Range s First trime ster 0.26- 2.66 Secon d trime ster 0.55- 2.73 Third trime ster 0.43- 2.91 Not Available [address] [address] [place], [address], 01/05/2022 14:51:29 01/03/20 22 01/05/2022 T4, FREE T4, free 1.0 NG/dL 0.8-1. 8 normal Not Available [address] [place], [address], 01/05/2022 14:51:28 01/03/20 22 01/05/2022 THYRO ID PEROX IDASE ANTIB ODIES thyroid peroxidase antibodies 40 IU/mL <9 high Not Available [address], [address], 01/05/2022 14:51:28 01/03/20 22 01/05/2022 ALBUM IN, RANDO M URINE W/CRE ATINI NE creatinine, random urine 247 mg/dL 20-275 normal Not Available [facility] [address] [address] [address], [place], [address], 01/05/2022 14:51:27 01/03/2001/05/2022 ALBUM IN, RANDO M URINE W/CRE ATINI NE albumin, urine 416.0 mg/dL see note: normal Refer ence Range : Refer ence Range Not estab lishe d Verif ied by repea t mayur sis. Not Available [address] [address] [address], [place], [address], 01/05/2022 14:51:27 01/03/2001/05/2022 ALBUM IN, RANDO M URINE W/CRE ATINI NE albumin/crea tinine ratio, random urine 1684 mcg/m g_cre at <30 high The ADA defin es abnor malit ies in album in excre tion as follo ws: Album inuri a Categ ory Resul t (mcg/ mg creat inine ) Yara l to Mildl y incre ased <30 Moder ately incre ased 30-29 9 Sever tavo incre ased > OR = 300 The ADA recom mends that at least two of three speci mens colle cted withi n a 3-6 month perio d be abnor mal befor e consi maricel g a patie nt to be withi n a diagn ostic categ ory. Not Available [address] [address] [address], [place], [address], 01/05/2022 14:51:27 01/03/20 22 01/05/2022 COMPR EHENS ANTONETTE METAB OLIC PANEL glucose 127 mg/dL 65-99 high Fasti ng refer ence inter leslie For someo ne witho ut known diabe juarez, a gluco se value >125 mg/dL indic ates that they may have diabe juarez and this shoul d be confi rmed with a follo w-up test. Not Available [address] [address] [address], [place], [address], 01/05/2022 14:51:27 01/03/20 22 01/05/2022 COMPR EHENS ANTONETTE METAB OLIC PANEL urea nitrogen (BUN) 25 mg/dL 7-25 normal Not Available [address], [address], 01/05/2022 14:51:27 01/03/20 22 01/05/2022 COMPR EHENS ANTONETTE METAB OLIC PANEL creatinine 0.93 mg/dL 0.50-1 .10 normal Not Available [address], [address], 01/05/2022 14:51:27 01/03/20 22 01/05/2022 COMPR EHENS ANTONETTE METAB OLIC PANEL eGFR non-afr. [place] citizen 78 mL/mi n/1.7 3m2 > or = 60 normal Not Available [address], [address], 01/05/2022 14:51:27 01/03/20 22 01/05/2022 COMPR EHENS ANTONETTE METAB OLIC PANEL eGFR 90 mL/mi n/1.7 3m2 > or = 60 normal Not Available [address], [address], 01/05/2022 14:51:27 01/03/20 22 01/05/2022 COMPR EHENS ANTONETTE METAB OLIC PANEL BUN/creatini ne ratio not applic able (calc ) 6-22 Not Available [address], [address], 01/05/2022 14:51:27 01/03/20 22 01/05/2022 COMPR EHENS ANTONETTE METAB OLIC PANEL sodium 137 mmol/ L 135-14 6 normal Not Available [address], [address], 01/05/2022 14:51:27 01/03/20 22 01/05/2022 COMPR EHENS ANTONETTE METAB OLIC PANEL potassium 4.5 mmol/ L 3.5-5. 3 normal Not Available [address], [address], 01/05/2022 14:51:27 01/03/20 22 01/05/2022 COMPR EHENS ANTONETTE METAB OLIC PANEL chloride 103 mmol/ L 98-110 normal Not Available [address], [address], 01/05/2022 14:51:27 01/03/20 22 01/05/2022 COMPR EHENS ANTONETTE METAB OLIC PANEL carbon dioxide 29 mmol/ L 20-32 normal Not Available [address], [address], 01/05/2022 14:51:27 01/03/20 22 01/05/2022 COMPR EHENS ANTONETTE METAB OLIC PANEL calcium 8.6 mg/dL 8.6-10 .2 normal Not Available [address], [address], 01/05/2022 14:51:27 01/03/20 22 01/05/2022 COMPR EHENS ANTONETTE METAB OLIC PANEL albumin/glob ulin ratio 1.1 (calc ) 1.0-2. 5 normal Not Available [address], [address], 01/05/2022 14:51:27 01/03/20 22 01/05/2022 COMPR EHENS ANTONETTE METAB OLIC PANEL protein, total 5.8 g/dL 6.1-8. 1 low Not Available [address], [address], 01/05/2022 14:51:27 01/03/20 22 01/05/2022 COMPR EHENS ANTONETTE METAB OLIC PANEL albumin 3.1 g/dL 3.6-5. 1 low Not Available [address], [address], 01/05/2022 14:51:27 01/03/20 22 01/05/2022 COMPR EHENS ANTONETTE METAB OLIC PANEL globulin 2.7 g/dL_ (calc ) 1.9-3. 7 normal Not Available [address], [address], 01/05/2022 14:51:27 01/03/20 22 01/05/2022 COMPR EHENS ANTONETTE METAB OLIC PANEL bilirubin, total 0.2 mg/dL 0.2-1. 2 normal Not Available [address], [address], 01/05/2022 14:51:27 01/03/20 22 01/05/2022 COMPR EHENS ANTONETTE METAB OLIC PANEL alkaline phosphatase 86 U/L 31-125 normal Not Available [address], [address], 01/05/2022 14:51:27 01/03/20 22 01/05/2022 COMPR EHENS ANTONETTE METAB OLIC PANEL AST 15 U/L 10-30 normal Not Available [address], [address], 01/05/2022 14:51:27 01/03/20 22 01/05/2022 COMPR EHENS ANTONETTE METAB OLIC PANEL ALT 13 U/L 6-29 normal Not Available [address], [address], 01/05/2022 14:51:27 01/03/20 22 01/05/2022 LIPID PANEL , STAND JERE LDL-choleste rol 113 mg/dL _(baldo c) high Refer ence range : <100 Nolberto able range <100 mg/dL for prima ry preve ntion ; <70 mg/dL for patie nts with CHD or diabe tic patie nts with > or = 2 CHD risk facto rs. LDL-C is now calcu lated using the [facility] stephanie mariano n, which is a valid ated novel metho d provi ding chi r accur acy than the Fried lay equat ion in the estim ation of LDL-C . Deb n SS et al. ZACHERY. 2013; 310(1 9): 2061- 2068 (http ://ed ucati on.Qu osmarDi marielaMimubs. com/f aq/FA Q164) Not Available [address], [address], 01/05/2022 14:51:26 01/03/20 22 01/05/2022 LIPID PANEL , STAND JERE cholesterol, total 187 mg/dL <200 normal Not Available [address], [address], 01/05/2022 14:51:26 01/03/20 22 01/05/2022 LIPID PANEL , STAND JERE HDL cholesterol 38 mg/dL > or = 50 low Not Available [address], [address], 01/05/2022 14:51:26 01/03/20 22 01/05/2022 LIPID PANEL , STAND JERE triglyceride s 239 mg/dL <150 high If a non-f astin g speci men was colle cted, consi salo repea t trigl yceri de testi ng on a fasti ng speci men if clini cody indic ated. Jermaine patel et al. J. of Clin. Lipid ol. 2015; 9:129 -169. Not Available [address], [address], 01/05/2022 14:51:26 01/03/20 22 01/05/2022 LIPID PANEL , STAND JERE chol/HDLC ratio 4.9 (calc ) <5.0 normal Not Available [address], [address], 01/05/2022 14:51:26 01/03/20 22 01/05/2022 LIPID PANEL , STAND JERE non HDL cholesterol 149 mg/dL _(baldo c) <130 high For patie nts with diabe juarez plus 1 major ASCVD risk facto r, treat ing to a non-H DL-C goal of <100 mg/dL (LDL- C of <70 mg/dL ) is consi celested siva nguyen optio n. Not Available [employer] [address] [address] [place], [address], 01/05/2022 14:51:26 06/24/20 22 06/25/2022 HEMOG LOBIN A1C hemoglobin A1C 7.5 %_of_ total _HGB <5.7 high For someo ne witho ut known diabe juarez, a hemog lobin A1c value of 6.5% or great er indic ates that they may have diabe juarez and this shoul d be confi rmed with a follo w-up test. For someo ne with known diabe juarez, a value <7% indic ates that their diabe juarez is well contr olled and a value great er than or equal to 7% indic ates subop timal contr ol. A1c targe ts shoul d be indiv idual ized based on durat ion of diabe juarez, age, comor bid condi tions , and other consi derat ions. Curre ntly, no conse nsus exist s scotty carlisle use of hemog lobin A1c for diagn osis of diabe juarez for child stalin. Not Available [facility] [address] [place], [address], 06/25/2022 14:29:41 06/24/20 22 06/25/2022 HEMOG LOBIN A1C copy(ies) sent to: [facility] [address] [place] [id number] Not Available [facility] [address] [place], [address], 06/25/2022 14:29:41 06/24/20 22 06/25/2022 T3, FREE T3, free 3.0 pg/mL 2.3-4. 2 normal Not Available [address] [place], [address], 06/25/2022 14:29:41 06/24/20 22 06/25/2022 T3, FREE copy(ies) sent to: [facility] [address] [place] [address] Not Available [address], [address], 06/25/2022 14:29:41 06/24/20 22 06/25/2022 TSH TSH 3.15 mIU/L normal Refer ence Range > or = 20 Years 0.40- 4.50 Pregn jeff Range s First trime ster 0.26- 2.66 Secon d trime ster 0.55- 2.73 Third trime ster 0.43- 2.91 Not Available [address], [address], 06/25/2022 14:29:40 06/24/20 22 06/25/2022 TSH copy(ies) sent to: [facility] [address] [place] [id number] Not Available [address], [address], 06/25/2022 14:29:40 06/24/20 22 06/25/2022 T4, FREE T4, free 1.1 NG/dL 0.8-1. 8 normal Not Available [address], [address], 06/25/2022 14:29:40 06/24/20 22 06/25/2022 T4, FREE copy(ies) sent to: [facility] [address] [place] [address] Not Available [facility] [address], [address], 06/25/2022 14:29:40 06/24/20 22 06/25/2022 ALBUM IN, RANDO M URINE W/CRE ATINI NE creatinine, random urine 55 mg/dL 20-275 normal Not Available [facility] [address] [address] [place], [address], 06/25/2022 14:29:39 06/24/20 22 06/25/2022 ALBUM IN, RANDO M URINE W/CRE ATINI NE albumin, urine 131.1 mg/dL see note: normal Refer ence Range : Refer ence Range Not estab lishe d Verif ied by repea t mayur sis. Not Available [address] [address] [place], [address], 06/25/2022 14:29:39 06/24/20 22 06/25/2022 ALBUM IN, RANDO M URINE W/CRE ATINI NE albumin/crea tinine ratio, random urine 2384 mcg/m g_cre at <30 high The ADA defin es abnor malit ies in album in excre tion as follo ws: Album inuri a Categ ory Resul t (mcg/ mg creat inine ) Yara l to Mildl y incre ased <30 Moder ately incre ased 30-29 9 Sever tavo incre ased > OR = 300 The ADA recom mends that at least two of three speci mens colle cted withi n a 3-6 month perio d be abnor mal befor e consi maricel g a patie nt to be withi n a diagn ostic categ ory. Not Available [address] [address] [place], [address], 06/25/2022 14:29:39 06/24/20 22 06/25/2022 ALBUM IN, RANDO M URINE W/CRE ATINI NE copy(ies) sent to: [facility] [address] [place] [address] Not Available [address] [address] [place], [address], 06/25/2022 14:29:39 06/24/20 22 06/25/2022 LIPID PANEL (REFL ) cholesterol, total 208 mg/dL <200 high Not Available [address], [address], 06/25/2022 14:29:39 06/24/20 22 06/25/2022 LIPID PANEL (REFL ) HDL cholesterol 43 mg/dL > or = 50 low Not Available [address], [place], [address], 06/25/2022 14:29:39 06/24/20 22 06/25/2022 LIPID PANEL (REFL ) triglyceride s 213 mg/dL <150 high If a non-f astin g speci men was colle cted, consi salo repea t trigl yceri de testi ng on a fasti ng speci men if clini cody indic ated. Jermaine patel et al. J. of Clin. Lipid ol. 2015; 9:129 -169. Not Available [address], [place], [address], 06/25/2022 14:29:39 06/24/20 22 06/25/2022 LIPID PANEL (REFL ) LDL-choleste rol 130 mg/dL _(baldo c) high Refer ence range : <100 Nolberto able range <100 mg/dL for prima ry preve ntion ; <70 mg/dL for patie nts with CHD or diabe tic patie nts with > or = 2 CHD risk facto rs. LDL-C is now calcu lated using the Deb n-Hop kins calcu latdany n, which is a valid ated novel rhona pruett accur acy than the Fried lay equat ion in the estim ation of LDL-C . Deb menon SS et al. ZACHERY. 2013; 310(1 9): 2061- 2068 (http ://ed ucati on.Qu estDi agnos tics. com/f aq/FA Q164) Not Available [address], [place], [address], 06/25/2022 14:29:39 06/24/20 22 06/25/2022 LIPID PANEL (REFL ) chol/HDLC ratio 4.8 (calc ) <5.0 normal Not Available [address], [address], 06/25/2022 14:29:39 06/24/20 22 06/25/2022 LIPID PANEL (REFL ) non HDL cholesterol 165 mg/dL _(baldo c) <130 high For patie nts with diabe juarez plus 1 major ASCVD risk facto r, treat ing to a non-H DL-C goal of <100 mg/dL (LDL- C of <70 mg/dL ) is garcia nguyen optio n. Not Available [address], [address], 06/25/2022 14:29:39 06/24/20 22 06/25/2022 LIPID PANEL (REFL ) copy(ies) sent to: [facility] [address] [place] [address] Not Available [address], [address], 06/25/2022 14:29:39 06/24/20 22 06/25/2022 COMPR EHENS ANTONETTE METAB OLIC PANEL glucose 77 mg/dL 65-99 normal Fasti ng refer ence inter leslie Not Available [address], [address], 06/25/2022 14:29:38 06/24/20 22 06/25/2022 COMPR EHENS ANTONETTE METAB OLIC PANEL urea nitrogen (BUN) 35 mg/dL 7-25 high Not Available [address], [address], 06/25/2022 14:29:38 06/24/20 22 06/25/2022 COMPR EHENS ANTONETTE METAB OLIC PANEL creatinine 1.06 mg/dL 0.50-0 .97 high Not Available [address], [address], 06/25/2022 14:29:38 06/24/20 22 06/25/2022 COMPR EHENS ANTONETTE METAB OLIC PANEL eGFR 69 mL/mi n/1.7 3m2 > or = 60 normal The eGFR is based on the CKD-E PI 2020 equat ion. To calcu late the new eGFR from a previ ous Creat inine or Cysta tin C resul t, go to https ://anthony [email or web address].benji smallwood/eusebia pak s/ kdoqi /gfr% 5Fcal culat or Not Available [address], [address], 06/25/2022 14:29:38 06/24/20 22 06/25/2022 COMPR EHENS ANTONETTE METAB OLIC PANEL BUN/creatini ne ratio 33 (calc ) 6-22 high Not Available [address], [address], 06/25/2022 14:29:38 06/24/20 22 06/25/2022 COMPR EHENS ANTONETTE METAB OLIC PANEL sodium 139 mmol/ L 135-14 6 normal Not Available [address], [address], 06/25/2022 14:29:38 06/24/20 22 06/25/2022 COMPR EHENS ANTONETTE METAB OLIC PANEL potassium 4.6 mmol/ L 3.5-5. 3 normal Not Available [address], [address], 06/25/2022 14:29:38 06/24/20 22 06/25/2022 COMPR EHENS ANTONETTE METAB OLIC PANEL chloride 105 mmol/ L 98-110 normal Not Available [address], [address], 06/25/2022 14:29:38 06/24/20 22 06/25/2022 COMPR EHENS ANTONETTE METAB OLIC PANEL carbon dioxide 27 mmol/ L 20-32 normal Not Available [address], [address], 06/25/2022 14:29:38 06/24/20 22 06/25/2022 COMPR EHENS ANTONETTE METAB OLIC PANEL calcium 8.7 mg/dL 8.6-10 .2 normal Not Available [address], [address], 06/25/2022 14:29:38 06/24/20 22 06/25/2022 COMPR EHENS ANTONETTE METAB OLIC PANEL protein, total 6.4 g/dL 6.1-8. 1 normal Not Available [address], [address], 06/25/2022 14:29:38 06/24/20 22 06/25/2022 COMPR EHENS ANTONETTE METAB OLIC PANEL albumin 3.2 g/dL 3.6-5. 1 low Not Available [address], [place], [address], 06/25/2022 14:29:38 06/24/20 22 06/25/2022 COMPR EHENS ANTONETTE METAB OLIC PANEL globulin 3.2 g/dL_ (calc ) 1.9-3. 7 normal Not Available [address], [address], 06/25/2022 14:29:38 06/24/20 22 06/25/2022 COMPR EHENS ANTONETTE METAB OLIC PANEL albumin/glob ulin ratio 1.0 (calc ) 1.0-2. 5 normal Not Available [address], [address], 06/25/2022 14:29:38 06/24/20 22 06/25/2022 COMPR EHENS ANTONETTE METAB OLIC PANEL bilirubin, total 0.3 mg/dL 0.2-1. 2 normal Not Available [address], [address], 06/25/2022 14:29:38 06/24/20 22 06/25/2022 COMPR EHENS ANTONETTE METAB OLIC PANEL alkaline phosphatase 101 U/L 31-125 normal Not Available [facility] [employer] [address], [address], 06/25/2022 14:29:38 06/24/20 22 06/25/2022 COMPR EHENS ANTONETTE METAB OLIC PANEL AST 16 U/L 10-30 normal Not Available [address], [address], 06/25/2022 14:29:38 06/24/20 22 06/25/2022 COMPR EHENS ANTONETTE METAB OLIC PANEL ALT 13 U/L 6-29 normal Not Available [address], [address], 06/25/2022 14:29:38 06/24/20 22 06/25/2022 COMPR EHENS ANTONETTE METAB OLIC PANEL copy(ies) sent to: [facility] [address] [place] [address] Not Available [address], [address], 06/25/2022 14:29:38 04/01/20 23 04/02/2023 LIPID PANEL , STAND JERE cholesterol, total 269 mg/dL <200 high Not Available [address], [address], 04/02/2023 20:30:56 04/01/20 23 04/02/2023 LIPID PANEL , STAND JERE HDL cholesterol 48 mg/dL > or = 50 low Not Available [address] [place], [address], 04/02/2023 20:30:56 04/01/20 23 04/02/2023 LIPID PANEL , STAND JERE triglyceride s 248 mg/dL <150 high If a non-f astin g speci men was colle cted, consi salo repea t trigl yceri de testi ng on a fasti ng speci men if clini cody indic ated. Jermaine patel et al. J. of Clin. Lipid ol. 2015; 9:129 -169. Not Available [facility] [address], [place], [address], 04/02/2023 20:30:56 04/01/20 23 04/02/2023 LIPID PANEL , STAND JERE LDL-choleste rol 177 mg/dL _(baldo c) high Refer ence range : <100 Nolberto able range <100 mg/dL for prima ry preve ntion ; <70 mg/dL for patie nts with CHD or diabe tic patie nts with > or = 2 CHD risk facto rs. LDL-C is now calcu lated using the Deb n-Hop kins calcu garcía n, which is a valid ated novel rhona pruett accur acy than the Fried lay equat ion in the estim ation of LDL-C . Deb menon SS et al. ZACHERY. 2013; 310(1 9): 2061- 2068 (http ://ed ucati on.Qu [employer]. com/f aq/FA Q164) Not Available [facility] [address] [place], [address], 04/02/2023 20:30:56 04/01/20 23 04/02/2023 LIPID PANEL , STAND JERE chol/HDLC ratio 5.6 (calc ) <5.0 high Not Available [facility] [address] [place], [address], 04/02/2023 20:30:56 04/01/20 23 04/02/2023 LIPID PANEL , STAND JERE non HDL cholesterol 221 mg/dL _(baldo c) <130 high Non-H DL level > or = 220 is very high and may indic ate kwame ic famil ial hyper jose j stero lemia (FH). Clini baldo asses sment and measu remen t of blood lipid level s shoul d be consi dered for all first -degr ee relat ruddy of patie nts with an FH diagn osis. For patie nts with diabe juarez plus 1 major ASCVD risk facto r, treat ing to a non-H DL-C goal of <100 mg/dL (LDL- C of <70 mg/dL ) is consi dered a thera peuti c optio n. Not Available [facility] [address] [address] [place], [address], 04/02/2023 20:30:56 04/01/20 23 04/02/2023 LIPID PANEL , STAND JERE copy(ies) sent to: [facility] [address] [place] [address] Not Available [facility] [address] [address] [place], [address], 04/02/2023 20:30:56 04/01/20 23 04/02/2023 COMPR EHENS ANTONETTE METAB OLIC PANEL glucose 115 mg/dL 65-99 high Fasti ng refer ence inter leslie For someo ne witho ut known diabe juarez, a gluco se value betwe en 100 and 125 mg/dL is consi stent with predi abete s and logan d be confi rmed with a follo w-up test. Not Available [facility] [address] [address] [place], [address], 04/02/2023 20:30:57 04/01/20 23 04/02/2023 COMPR EHENS ANTONETTE METAB OLIC PANEL urea nitrogen (BUN) 31 mg/dL 7-25 high Not Available [facility] [address] [place], [address], 04/02/2023 20:30:57 04/01/20 23 04/02/2023 COMPR EHENS ANTONETTE METAB OLIC PANEL creatinine 1.32 mg/dL 0.50-0 .97 high Not Available [address], [address], 04/02/2023 20:30:57 04/01/20 23 04/02/2023 COMPR EHENS ANTONETTE METAB OLIC PANEL eGFR 53 mL/mi n/1.7 3m2 > or = 60 low The eGFR is based on the CKD-E PI 2020 equat ion. To calcu late the new eGFR from a previ ous Creat inine or Cysta tin C resul t, go to https ://anthony medrano.benji smallwood/eusebia pak s/ kdoqi /gfr% 5Fcal culat or Not Available [address], [address], 04/02/2023 20:30:57 04/01/20 23 04/02/2023 COMPR EHENS ANTONETTE METAB OLIC PANEL BUN/creatini ne ratio 23 (calc ) 6-22 high Not Available [address], [address], 04/02/2023 20:30:57 04/01/20 23 04/02/2023 COMPR EHENS ANTONETTE METAB OLIC PANEL sodium 137 mmol/ L 135-14 6 normal Not Available [address], [address], 04/02/2023 20:30:57 04/01/20 23 04/02/2023 COMPR EHENS ANTONETTE METAB OLIC PANEL potassium 4.7 mmol/ L 3.5-5. 3 normal Not Available [address], [address], 04/02/2023 20:30:57 04/01/20 23 04/02/2023 COMPR EHENS ANTONETTE METAB OLIC PANEL chloride 106 mmol/ L 98-110 normal Not Available [address], [address], 04/02/2023 20:30:57 04/01/20 23 04/02/2023 COMPR EHENS ANTONETTE METAB OLIC PANEL carbon dioxide 23 mmol/ L 20-32 normal Not Available [facility] [address], [address], 04/02/2023 20:30:57 04/01/20 23 04/02/2023 COMPR EHENS ANTONETTE METAB OLIC PANEL calcium 7.9 mg/dL 8.6-10 .2 low Not Available [facility] [address], [address], 04/02/2023 20:30:57 04/01/20 23 04/02/2023 COMPR EHENS ANTONETTE METAB OLIC PANEL protein, total 5.0 g/dL 6.1-8. 1 low Not Available [address], [address], 04/02/2023 20:30:57 04/01/20 23 04/02/2023 COMPR EHENS ANTONETTE METAB OLIC PANEL albumin 2.4 g/dL 3.6-5. 1 low Not Available [address], [address], 04/02/2023 20:30:57 04/01/20 23 04/02/2023 COMPR EHENS ANTONETTE METAB OLIC PANEL globulin 2.6 g/dL_ (calc ) 1.9-3. 7 normal Not Available [facility] [address], [address], 04/02/2023 20:30:57 04/01/20 23 04/02/2023 COMPR EHENS ANTONETTE METAB OLIC PANEL albumin/glob ulin ratio 0.9 (calc ) 1.0-2. 5 low Not Available [facility] [address], [address], 04/02/2023 20:30:57 04/01/20 23 04/02/2023 COMPR EHENS ANTONETTE METAB OLIC PANEL bilirubin, total 0.3 mg/dL 0.2-1. 2 normal Not Available [address], [address], 04/02/2023 20:30:57 04/01/20 23 04/02/2023 COMPR EHENS ANTONETTE METAB OLIC PANEL alkaline phosphatase 88 U/L 31-125 normal Not Available [address], [address], 04/02/2023 20:30:57 04/01/20 23 04/02/2023 COMPR EHENS ANTONETTE METAB OLIC PANEL AST 23 U/L 10-30 normal Not Available [address], [address], 04/02/2023 20:30:57 04/01/20 23 04/02/2023 COMPR EHENS ANTONETTE METAB OLIC PANEL ALT 22 U/L 6-29 normal Not Available [address], [address], 04/02/2023 20:30:57 04/01/20 23 04/02/2023 COMPR EHENS ANTONETTE METAB OLIC PANEL copy(ies) sent to: [facility] [address] [place] [address] Not Available [address], [address], 04/02/2023 20:30:57 04/01/20 23 04/02/2023 ALBUM IN, RANDO M URINE W/CRE ATINI NE creatinine, random urine 83 mg/dL 20-275 normal Not Available [address], [address], 04/02/2023 20:30:58 04/01/20 23 04/02/2023 ALBUM IN, RANDO M URINE W/CRE ATINI NE albumin, urine >600.0 mg/dL see note: normal Refer ence Range : Refer ence Range Not estab lishe d Verif ied by repea john mayur sis. Not Available [address], [address], 04/02/2023 20:30:58 04/01/20 23 04/02/2023 ALBUM IN, RANDO M URINE W/CRE ATINI NE albumin/crea tinine ratio, random urine NOTE mcg/m g_cre at <30 normal THE URINE ALBUM IN VALUE IS GREAT ER THAN 600 mg/dL THERE FORE WE ARE UNABL E TO CALCU LATE EXCRE TION AND/O R CREAT ININE RATIO . The ADA defin es abnor malit ies in album in excre tion as follo ws: Album inuri a Categ ory Resul t (mcg/ mg creat inine ) Yara l to Mildl y incre ased <30 Moder ately incre ased 30-29 9 Sever tavo incre ased > OR = 300 The ADA recom mends that at least two of three speci mens colle cted withi n a 3-6 month perio d be abnor mal befor e consi maricel g a patie nt to be withi n a diagn ostic categ ory. Not Available [address], [address], 04/02/2023 20:30:58 04/01/2004/02/2023 ALBUM IN, RANDO M URINE W/CRE ATINI NE copy(ies) sent to: [facility] [address] [place] [address] Not Available [address], [address], 04/02/2023 20:30:58 04/01/20 23 04/02/2023 T4, FREE T4, free 0.9 NG/dL 0.8-1. 8 normal Not Available [address] [place], [address], 04/02/2023 20:30:59 04/01/20 23 04/02/2023 T4, FREE copy(ies) sent to: [facility] [address] [place] [address] Not Available [address], [address], 04/02/2023 20:30:59 04/01/20 23 04/02/2023 TSH TSH 5.22 mIU/L high Refer ence Range > or = 20 Years 0.40- 4.50 Pregn jeff Range s First trime ster 0.26- 2.66 Secon d trime ster 0.55- 2.73 Third trime ster 0.43- 2.91 Not Available [address], [address], 04/02/2023 20:30:59 04/01/20 23 04/02/2023 TSH copy(ies) sent to: [facility] [address] [place] [address] Not Available [address], [address], 04/02/2023 20:30:59 04/01/20 23 04/02/2023 HEMOG LOBIN A1C hemoglobin A1C 7.2 %_of_ total _HGB <5.7 high For someo ne witho ut known diabe juarez, a hemog lobin A1c value of 6.5% or great er indic ates that they may have diabe juarez and this shoul d be confi rmed with a follo w-up test. For someo ne with known diabe juarez, a value <7% indic ates that their diabe juarez is well contr olled and a value great er than or equal to 7% indic ates subop timal contr ol. A1c targe ts shoul d be indiv idual ized based on durat ion of diabe juarez, age, comor bid condi tions , and other consi derat ions. Curre ntly, no conse nsus exist s scotty carlisle use of hemog lobin A1c for diagn osis of diabe juarez for child stalin. Not Available [facility] [address], [place], [address], 04/02/2023 20:31:00 04/01/20 23 04/02/2023 HEMOG LOBIN A1C copy(ies) sent to: [facility] [address] [place] [address] Not Available [facility] [address], [place], [address], 04/02/2023 20:31:00 05/12/20 22 05/12/2022 NM, gastr ic empty ing scan No observ ation record ed. [id number] [address], [place], [address], 12/23/2022 03:16:23 Result Notes None recorded. Problems Name Problem SNOMED Code Status Onset Date Resolution Date Notes Provider Name and Address Organization Details Recorded Time Uncontrolled type 2 diabetes mellitus 221757260 Active 2022 Macie Nunez MD [address], [place] [address], [place], [address] , [facility] 3 21:33:33 Weight gain 8553016 Active 2022 Macie Nunez MD [address] [place] [address], [place], [address] , [facility] 3 11:07:44 Dyslipidemia 667837888 Active 2021 Not Available [facility] 3 03:11:07 Hypothyroidis m 28831036 Active 2021 Not Available [facility] 3 03:11:07 Nausea 743669824 Active 2021 Not Available [facility] 3 03:11:07 Well controlled type 2 diabetes mellitus 654063076 Active 2021 Not Available [facility] 3 03:11:07 Problem Notes None recorded. Procedures Surgical History None recorded. Imaging Results Imaging Date Name Status LastModified by Organiz ation Details LastModified Time 05/12/2022 NM, gastric emptying scan completed [id number] [address] [place] [address] [address], [place], [address], 12/23/2022 03:16:23 Procedure Notes None recorded. Medical Equipment None Reported. Allergies Allergen ID Allergen Name Allergen Category Reaction Reaction Severity Criticality Documentation Date Start Date Code Code System Note Provider Name and Address Organization Details Recorded Time 5626 acetamino phen / hydrocodo ne medicatio n other Not available Not available 12/23/2022 05695 2 RxNorm Not Available [facility] 3 03:16:02 5627 tramadol medicatio n Not available Not available Not available 12/23/2022 [address] RxNorm Not Available [facility] 3 03:16:02 5628 azithromy darvin medicatio n Not available Not available Not available 12/23/2022 [address] RxNorm Not Available [facility] 3 03:16:02 Medications Name Sig Start Date Stop Date Status Note LastModified by Organization Details LastModified Time losartan 50 mg tablet TAKE 1 TABLET BY MOUTH EVERY DAY active Not Available Not Available No t Available atorvastati n 40 mg tablet TAKE 1 TABLET BY MOUTH EVERY DAY active Not Available Not Available No t Available silver sulfadiazin e 1 % topical cream APPLY TO AREA TWICE A DAY 07/25 completed Not Available Not Available Not Available nystatin 100,000 unit/mL oral suspension SHAKE WELL AND TAKE 5 MLS BY MOUTH 4 TIMES PER DAY 04/06 completed Not Available Not Available Not Available atorvastati n 20 mg tablet TAKE 1 TABLET EVERY OTHER DAY BY ORAL ROUTE AT BEDTIME FOR 90 DAYS. 04/06 completed Not Available Not Available Not Available torsemide 20 mg tablet TAKE 1 TABLET BY MOUTH EVERY DAY DIRECTED active Not Available Not Available No t Available loperamide 2 mg capsule 07/25 completed Not Available Not Available Not Available atorvastati n 10 mg tablet TAKE 1 TABLET BY MOUTH EVERYDAY AT BEDTIME active Not Available Not Available No t Available azithromyci n 250 mg tablet TAKE 2 TABLETS BY MOUTH TODAY, THEN TAKE 1 TABLET DAILY FOR 4 DAYS active Not Available Not Available No t Available ofloxacin 0.3 % eye drops INSTILL 1 DROP INTO INTO AFFECTED EYE(S) EVERY 3 HOURS X 2DAYS, THEN 4X DAILY X 5 DAYS active Not Available Not Available No t Available benzonatate 200 mg capsule TAKE 1 CAPSULE (ORAL) 2 TO 3 TIMES PER DAY NEEDED FOR COUGH FOR 7 DAYS active Not Available Not Available No t Available meloxicam 15 mg tablet TAKE 1 TABLET BY MOUTH EVERY DAY 06/25 completed Not Available Not Available Not Available ondansetron HCl 4 mg tablet TAKE 1 TABLET BY MOUTH 3 TIMES A DAY NEEDED FOR NAUSEA 04/06 completed Not Available Not Available Not Available famotidine 40 mg tablet TAKE 1 TABLET BY MOUTH TWICE A DAY active Not Available Not Available No t Available Synthroid 100 mcg tablet Take 1 tablet every day by oral route in the morning for 90 days. 04/06 completed Not Available Not Available Not Available metronidazo le 250 mg tablet TAKE 1 TABLET BY MOUTH THREE TIMES A DAY UNTIL GONE. TAKE WITH CEPHALEXI N active Not Available Not Available No t Available verapamil ER (SR) 180 mg tablet,exte nded release TAKE 1 TABLET BY MOUTH EVERY DAY WITH FOOD active Not Available Not Available No t Available atenolol 25 mg tablet 10/10 completed Not Available Not Available Not Available torsemide 10 mg tablet TAKE 1 TABLET (10 MG) BY ORAL ROUTE ONCE DAILY IN AM 07/06 completed Not Available Not Available Not Available metronidazo le 500 mg tablet TAKE 1 TABLET BY MOUTH TWICE A DAY FOR 7 DAYS 04/06 completed Not Available Not Available Not Available acetaminoph en 300 mg-codeine 30 mg tablet TAKE 1-2 TABLET BY MOUTH EVERY 6 HOURS NEEDED FOR PAIN 04/06 completed Not Available Not Available Not Available sulfamethox azole 800 mg-trimetho prim 160 mg tablet TAKE 1 TABLET BY MOUTH EVERY 12 HOURS FOR 10 DAYS 07/25 completed Not Available Not Available Not Available doxycycline monohydrate 100 mg tablet TAKE 1 TABLET BY MOUTH TWICE A DAY 04/06 completed Not Available Not Available Not Available spironolact one 25 mg tablet TAKE 1 TABLET BY MOUTH TWICE A DAY active Not Available Not Available No t Available glimepiride 2 mg tablet Take 2 tablets twice a day by oral route with meals for 30 days. 03/18 completed Not Available Not Available Not Available levothyroxi ne 75 mcg tablet Take 1 tablet every day by oral route for 90 days. active Not Available Not Available No t Available ketorolac 0.5 % eye drops INSTILL 1 DROP RIGHT EYE TWICE A DAY active Not Available Not Available No t Available amoxicillin 875 mg tablet TAKE 1 TABLET BY MOUTH EVERY 12 HOURS 04/06 completed Not Available Not Available Not Available prednisolon e acetate 1 % eye drops,suspe nsion INSTILL 1 DROP INTO RIGHT EYE 4 TIMES A DAY active Not Available Not Available No t Available Humalog U-100 Insulin 100 unit/mL subcutaneou s solution INJECT 70 UNITS NEEDED BY SUBCUTANE OUS ROUTE WITH MEALS FOR 90 DAYS. 04/06 completed Not Available Not Available Not Available dexamethaso ne 1 mg tablet TAKE DEXA TABLET BY MOUTH AT 10 PM NIGHT BEFORE 8 AM CORTISOL active Not Available Not Available No t Available doxycycline monohydrate 100 mg capsule TAKE 1 CAPSULE (100 MG) BY ORAL ROUTE 2 TIMES PER DAY 07/25 completed Not Available Not Available Not Available levothyroxi ne 50 mcg tablet TAKE 1 TABLET BY MOUTH EVERY DAY 01/09 completed Not Available Not Available Not Available cephalexin 500 mg capsule TAKE 1 CAPSULE BY MOUTH 4 TIMES A DAY UNTIL GONE active Not Available Not Available No t Available pantoprazol e 40 mg tablet,antony yed release 07/25 completed Not Available Not Available Not Available oseltamivir 75 mg capsule TAKE 1 CAPSULE BY MOUTH EVERY 12 HOURS FOR 5 DAYS 04/06 completed Not Available Not Available Not Available glimepiride 4 mg tablet TAKE 1 TABLET BY MOUTH TWICE DAILY 06/25 completed Not Available Not Available Not Available losartan 25 mg tablet TAKE 1 TABLET BY MOUTH AT BEDTIME WITH 50MG active Not Available Not Available No t Available Synthroid 112 mcg tablet Take 1 tablet every day by oral route. 04/06 completed Not Available Not Available Not Available ergocalcife rol (vitamin D2) 1,250 mcg (50,000 unit) capsule TAKE 1 TABLET WEEKLY FOR THE NEXT 12 WEEKS, THEN REPEAT A VITAMIN D LEVEL 04/06 completed Not Available Not Available Not Available Novolog U-100 Insulin aspart 100 unit/mL subcutaneou s solution INJECT UP TO 200 UNITS SUBCUTANE OUSLY DAILY X 90 DAYS 2022 active Not Available Not Available Not Avai lable losartan 100 mg tablet TAKE 1 TABLET BY MOUTH EVERY DAY active Not Available Not Available No t Available metformin ER 500 mg tablet,exte nded release 24 hr TAKE 1 TABLET BY MOUTH TWICE A DAY WITH FOOD 2022 active Not Available Not Available Not Avai lable atenolol 50 mg tablet TAKE 1 TABLET BY MOUTH IN THE EVENING 04/06 completed Not Available Not Available Not Available loratadine 10 mg tablet TAKE 1 TABLET BY MOUTH EVERY DAY 04/06 completed Not Available Not Available Not Available rizatriptan 5 mg tablet TAKE 1 TABLET BY MOUTH ONCE, MAY REPEAT AT 2 HR INTERVALS . DO NOT EXCEED 30 MG IN 24 HOURS active Not Available Not Available No t Available verapamil ER 120 mg 24 hr capsule,ext ended release TAKE 1 CAPSULE BY MOUTH ONCE DAILY IN THE EVENING 04/06 completed Not Available Not Available Not Available escitalopra m 10 mg tablet TAKE 1 TABLET BY MOUTH EVERY DAY active Not Available Not Available No t Available Synthroid 137 mcg tablet TAKE 1 TABLET BY MOUTH EVERY DAY IN THE MORNING active Not Available Not Available No t Available escitalopra m 5 mg tablet TAKE 1 TABLET BY MOUTH EVERY DAY 04/06 completed Not Available Not Available Not Available multivitami n 07/25 completed Not Available Not Available Not Available Humalog KwikPen (U-100) Insulin 100 unit/mL subcutaneou s Inject 70 units as needed by subcutane ous route with meals for 90 days. active Not Available Not Available No t Available omeprazole 20 mg tablet,antony yed release TAKE ONCE DAILY WHILE TAKING THE MELOXICAM 06/25 completed Not Available Not Available Not Available pen needle, diabetic 32 gauge x USE 1 PEN NEEDLE WITH INSULIN TWICE DAILY active Not Available Not Available No t Available Jentadueto 2.5 mg-1,000 mg tablet TAKE 1 TABLET BY MOUTH TWICE A DAY 06/25 completed Not Available Not Available Not Available Vascepa 1 gram capsule TAKE 2 CAPSULES BY MOUTH TWICE A DAY BY BEFORE MEALS FOR 30 DAYS. 04/06 completed Not Available Not Available Not Available BD Insulin Syringe Ultra-Fine 1 mL 31 gauge x 03/09 INJECT INSULIN UP TO 5 TIMES DAILY OK TO SUBSTITUT E PER INSURANCE COVERAGE active Not Available Not Available No t Available Invokana 100 mg tablet TAKE 1 TABLET BY MOUTH EVERY DAY BEFORE THE FIRST MEAL OF THE DAY 06/25 completed Not Available Not Available Not Available Humulin N NPH U-100 Insulin KwikPen 100 unit/mL (3 mL) subcutaneou s INJECT 30 UNITS SUBCUTANE OUSLY IN THE MORNING AND INJECT 20 UNITS SUBCUTANE OUSLY IN THE EVENING active Not Available Not Available No t Available Farxiga 10 mg tablet TAKE 1 TABLET BY MOUTH EVERY DAY IN THE MORNING 01/28 completed Not Available Not Available Not Available Jardiance 25 mg tablet TAKE 1 TABLET EVERY DAY IN THE MORNING 03/18 completed Not Available Not Available Not Available Repatha SureClick 140 mg/mL subcutaneou s pen injector INJECT 1 ML EVERY 2 WEEKS BY SUBCUTANE OUS ROUTE IN THE MORNING FOR 90 DAYS. active Not Available Not Available No t Available Tresiba FlexTouch U-200 insulin 200 unit/mL (3 mL) subcutaneou s pen INJECT 20 UNITS EVERY DAY BY SUBCUTANE OUS ROUTE AT BEDTIME FOR 30 DAYS. 10/10 completed Not Available Not Available Not Available Fiasp FlexTouch U-100 Insulin 01/09 completed Not Available Not Available Not Available Ozempic 0.25 mg or 0.5 mg (2 mg/1.5 mL) subcutaneou s pen injector INJECT 0.5MG EVERY WEEK BY SUBCUTANE OUS ROUTE IN THE MORNING OR 30 DAYS 01/09 completed Not Available Not Available Not Available OneTouch Ultra Blue Test Strip Take 1 strip 4 times a day by miscell. route before meals for 30 days. active Not Available Not Available No t Available Dexcom G6 Sensor device CHANGE SENSOR EVERY 10 DAYS active Not Available Not Available No t Available Dexcom G6 Cable Television Installer USE DIRECTED. active Not Available Not Available No t Available Dexcom G6 Transmitter device CHANGE TRANSMITT ER EVERY 90 DAYS active Not Available Not Available No t Available Tresiba U-100 Insulin 100 unit/mL subcutaneou s solution INJECT 60 UNITS EVERY DAY BY SUBCUTANE OUS ROUTE AT BEDTIME FOR 90 DAYS 04/06 completed Not Available Not Available Not Available FreeStyle Merari 2 Sensor kit CHANGE SENSOR EVERY 14 DAYS X 90 DAYS active Not Available Not Available No t Available FreeStyle Merari 2 [place] USE DIRECTED active Not Available Not Available No t Available Ozempic 1 mg/dose (4 mg/3 mL) subcutaneou s pen injector Inject 1 mg every week by subcutane ous route at dinner for 90 days. active Not Available Not Available No t Available Paxlovid 300 mg (150 mg x 2)-100 mg tablets in a dose pack TAKE 3 TABLETS BY MOUTH 2 TIMES PER DAY IN THE MORNING AND EVENING FOR 5 DAYS PER PACKAGE DIRECTION S 04/06 completed Not Available Not Available Not Available Ozempic 2 mg/dose (8 mg/3 mL) subcutaneou s pen injector INJECT 2 MG EVERY WEEK BY SUBCUTANE OUS ROUTE AT DINNER FOR 90 DAYS. active Not Available Not Available No t Available Omnipod 5 G6 Pods (Gen 5) subcutaneou s cartridge CHANGE EVERY 3 DAYS active Not Available Not Available No t Available Omnipod 5 G6 Intro Kit (Gen 5) subcutaneou s cartridge with controller Change every 2-3 days 2022 active Not Available Not Available Not Avai lable Vitals Date Recorded Body height Body mass index (BMI) Body weight Body temperature Respiratory rate Heart rate Systolic blood pressure Diastolic blood pressure Provider Name and Address Organization Details Last Updated DateTime 3 165.1 cm 37.4 kg/m2 725371. 85 g 97.8 [degF] 18 /min 93 /min 187 mm[Hg] 103 mm[Hg] MICHAEL Head [place] [facility] [place] [facility] 3 10:49:08 Date Recorded Body mass index (BMI) Body height Oxygen saturation Oxygen saturation in Arterial blood by Pulse oximetry Heart rate Body temperature Body weight Systolic blood pressure Diastolic blood pressure Provider Name and Address Organization Details Last Updated DateTime 1 34.6 kg/m2 165.1 cm 99 % 99 % 98 /min 98.5 [degF] 16776.2 1 g 166 mm[Hg] 94 mm[Hg] Not Available [facility] 3 03:10:15 Date Recorded Body mass index (BMI) Body height Oxygen saturation Oxygen saturation in Arterial blood by Pulse oximetry Heart rate Body temperature Body weight Systolic blood pressure Diastolic blood pressure Provider Name and Address Organization Details Last Updated DateTime 2 35.3 kg/m2 165.1 cm 98 % 98 % 93 /min 97.8 [degF] 92941.5 8 g 140 mm[Hg] 80 mm[Hg] Not Available [facility] 3 03:10:15 Date Recorded Body mass index (BMI) Body height Oxygen saturation Oxygen saturation in Arterial blood by Pulse oximetry Heart rate Body temperature Body weight Systolic blood pressure Diastolic blood pressure Provider Name and Address Organization Details Last Updated DateTime 2 36.3 kg/m2 165.1 cm 96 % 96 % 102 /min 98.4 [degF] 13403.1 4 g 128 mm[Hg] 80 mm[Hg] Not Available [facility] 3 03:10:15 Date Recorded Body mass index (BMI) Body height Oxygen saturation Oxygen saturation in Arterial blood by Pulse oximetry Heart rate Body temperature Body weight Systolic blood pressure Diastolic blood pressure Provider Name and Address Organization Details Last Updated DateTime 2 36.8 kg/m2 165.1 cm 99 % 99 % 86 /min 98 [degF] 099080. 35 g 130 mm[Hg] 90 mm[Hg] Not Available [facility] 3 03:10:16 Social History Question Answer Notes LastModified by Organizat ion Details LastModified Time Tobacco Smoking Status Never Smoker Not Available [facility] 12/23/2022 03:04:41 What Is Your Level Of Alcohol Consumption? None [id number] Information not available 12/23/2022 What Is Your Level Of Caffeine Consumption? Heavy [id number] Information not available 12/23/2022 How Much Tobacco Do You Chew? None [id number] Information not available 12/23/2022 In The 14 Days Before Symptom Onset, Have You Had Close Contact With A Laboratory-confir med COVID-19 While That Case Was Ill? No [id number] Information not available 12/23/2022 In The 14 Days Before Symptom Onset, Have You Had Close Contact With A Person Who Is Under Investigation For COVID-19 While That Person Was Ill? No [id number] Information not available 12/23/2022 Which Illicit Or Recreational Drugs Have You Used? None [id number] Information not available 12/23/2022 Do You Or Have You Ever Used E-cigarettes Or Vape? Never Used Electronic Cigarettes [id number] Information not available 12/23/2022 What Is Your Occupation? [employer] [id number] Information not available 12/23/2022 What Is Your Relationship Status? Single [id number] Information not available 12/23/2022 Do You Or Have You Ever Used Smokeless Tobacco? Never Used Smokeless Tobacco [id number] Information not available 12/23/2022 Sex: Unknown Functional Status None recorded. Mental Status None recorded. Family History Relationship Description Onset Age of this Age Resolved Age Notes LastModified by Organization Details LastModified Time Paternal Grandmother Dementia [id number] Not available 12/23/2022 03:07:25 Medical History Condition Response HIGH CHOLESTEROL / HYPERLIPIDEMIA Y DEPRESSION (INCLUDING POST ) Y DIABETES, TYPE Y HYPERTENSION Y Gynecological HistoryNo gynecological history recorded. Obstetrics History GPAL:G 0 P 0 0 0 0 Past Encounters Encounter ID Performer Location Encounter Start Date Encounter Closed Date Diagnosis/Indication Diagnosis SNOMED-CT Code Diagnosis ICD10 Code Diagnosis Note [id number] [facility] [address] [place] [address] 01/28/2021 00:00:00 01/28/2021 18:07:01 [id number] [facility] [address] [place] [address] 03/18/2021 00:00:00 03/18/2021 21:33:43 [id number] [facility] [address] [place] [address] 07/25/2021 00:00:00 07/25/2021 12:59:47 [id number] [facility] [address] [place] [address] 10/10/2021 00:00:00 10/10/2021 13:12:19 [id number] [facility] [address] [place] [address] 01/09/2022 00:00:00 01/09/2022 16:50:00 [id number] [facility] [address] [place] [address] 05/01/2022 00:00:00 05/02/2022 11:51:42 [id number] [facility] [address] [place] [address] 07/06/2022 00:00:00 07/06/2022 18:40:08 [id number] Macie Nunez MD [facility] [address] [place] [address] 04/06/2023 10:28:34 04/06/2023 11:12:54 Uncontrolled type 2 diabetes mellitus 051127156 E11.65 a1c of 7.2% down from 7.5%- continue settings as follows:12 a-8a 2.7u/hr8a- 12a 2.4u/hr1:3 CF 50Target 120Correct above 150Continu e dexcom cgm. Will uptitrate ozempic to 2 mg once weekly. Hypothyroidism 01382233 E03.9 FT4 low range- will uptitrate synthroid to 137 mcg daily. She was reminded to take her synthroid on empty stomach with glass of water and wait one hour to eat or have her coffee in morning and up to 4 hours if ever taking any heartburn or reflux medication s to help optimize absorption . Discussed paleo like diet with restrictio n of GMOs to help with energy and to optimize absorption of vitamins and minerals and reduce inflammati on. Dyslipidemia 704338856 E 78.5 LDL of 177 mg/dL on high dose statin therapy- she is high risk for CAD/CVD events- will trial on repatha for further LDL reduction. Weight gain 6776549 R63. 5 Will send for low dose dexa suppressio n testing to screen for hypercorti solic state. Spent up to 28 minutes preparing to see the patient (eg, review of tests), obtaining and/or reviewing separately obtained history, performing a medically appropriat e examinatio n and evaluation , counseling and educating the patient, ordering medication s, tests, along with documentin g clinical informatio n in the electronic health record, stevieen tly interpreti ng results and communicat ing results to the patient. RTC in 4 months. Patient was provided a handwritte n lab order which contains our fax number. If she chooses to go outside of the [facility] system to obtain labwork she was advised to provide our fax number and my informatio n to the lab she will be obtaining labwork from in order to have her labs properly forwarded over for me to review so there is no loss of follow up due to use of outside network. She was also advised to contact our clinic informing us that she has completed her labwork so we are aware we will need to reach out to the appropriat e laboratory to request her results be forwarded to us so I might have the ability to review and make further medical decision making in her case. She voiced understand ing. Health Concerns Section Related Observation LastModified by Organization Detai ls LastModified Time None Recorded Concern Status LastModified by Organization Details LastModified Time None Recorded Advance Directives Directive None Recorded Payers Encounter Date Sequence Insurance Name Policy Number Policy Prasad Covered Member ID Prasad Member ID Guarantor Name 04/06/2023 1 [employer] ([employer]) [id number] Ailyn Tran [id number] Ailyn Tran Notes Date Note Type Note Provider Name and Address Organization Details Recorded Time 04/06/2023 text/html 37 yo female com es in for follow up in management of overall better controlled type 2 DM (A1C of 7.2% down from 7.5%), dyslipidemia and hypothyroidism. last seen in Jun at that time we had patient continue ozempic 1 mg weekly.Continued insulin pump settings at:12a-8a 2.7u/oo9i-65r 2.4u/hr1:3CF 50Target 120Correct above 150Continue dexcom cgm. we increased synthroid to 112 mcg daily. She has since gone up to 125 mcg daily we continued statin therapy. 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 She is on high dose atorvastatin 40 mg daily at bedtime and LDL 177 .labs form 04/16:269/248/48/177a1 c of 7.2%TSH of 5.22 uIU/mlFT4 of 0.9 ng/dLmicroalbumin not elevatedglucose 115 mg/dLCr 1.32 mg/dL with GFR 53 ml/minlft normalcalcium/protein low Macie Nunez MD [address], [place], [address], [place] [facility] 04/06/2023 14:21:55 OBGyn Episode No OBEpisode recorded.
--- OUTSIDE RECORDS SUMMARY | 2024-12-20 01:31 | XMS_ITS | Encounter Summary ---
Author Organization [facility] Address [address] [place] [address] Care Team Providers Care Coding Team Lead Name Role Phone Carlos Enrique Posada MD Primary Care Provider [phone] Encounter Details Date Type Department Care Team (Late st Contact Info) Description 01/08/2018 Abstract [facility] CONVERSION [address] [place] [address] , Generic Conversion, Social History Tobacco Use Types Packs/Day Years Used Date Smoking Tobacco: Never Assessed Comments Unknown Sex and Gender Information Value Date Recorded Sex Assigned at Female 12/07/2024 3:33 PM [employer] Sex Female 8:04 PM CDT Gender Identity Not on file Sexual Orientation Not on file documented as of this encounter Plan of Treatment Not on file documented as of this encounter Visit Diagnoses Not on filedocumented in this encounter Care Teams Coding Team Lead Relationship Specialty Start Date End Date Carlos Enrique Posada MD [address] [place] [address] PCP - General INTERNAL MEDICINE 10/30/21 documented as of this encounter
--- OUTSIDE RECORDS SUMMARY | 2024-12-20 01:31 | XMS_ITS | Data Portability ---
Author Organization [facility], [address] [place] [address] [place] ([place]) Address [address] [place] [address] Care Team Providers Care Admissions Clinician Name Role Phone TRISTIAN SCHAFER Primary Care Provider SAMMI LEE Technology Professional Assessment Encounter Date Assessment Date Assessment LastModified [...] Patient is going to switch from the [facility] back to the [facility]. She does note that she seemed like [...] Recorded Time Chronic kidney disease stage 3 773867244 [facility] 57009728 [facility] 12:06[facility]34 Type 2 diabetes mellitus 21603899 [facility] 12[facility] Problem Notes None recorded. Medical Equipment None Reported. Allergies Allergen ID Allergen Name Allergen Category Reaction Reaction Severity Criticality Documentation Date Start Date Code Code System Note Provider Name and Address Organization Details Recorded Time 5237074 acetamino phen / hydrocodo ne medicatio n Not available Not available Not available 11/24/20232021 06686 2 RxNorm Not Available Not Available Not Available 4152924 tramadol Not available Not available Not available Not available 11/24/20232021 67082 RxNorm Not Available Not Available Not Available 0122456 Tylenol with Codeine medicatio n Not available Not available Not available 11/24/20232022 33319 6 RxNorm Not Available Not Available Not [...] cm 75 /min 132 mm[Hg] 70 mm[Hg] [facility] 04/20/2024 16:09:28 Social History None recorded. Functional Status None recorded. Mental Status None recorded. Family History Nothing Reported. Medical History Condition Response Anemia N Cancer N Gynecological HistoryNo gynecological history recorded. Obstetrics History GPAL:G 0 P 0 0 0 0 Past Encounters Encounter ID Performer Location Encounter Start Date Encounter Closed Date Diagnosis/Indication Diagnosis SNOMED-CT Code Diagnosis ICD10 Code Diagnosis Note [id number] Sammi Lee PA-C [facility] [address] [place] [address] 04/20/2024 15:57:43 04/20/2024 16:32:16 Chronic kidney disease stage 3 059568762 N18.30 Health Concerns Section Related Observation LastModified by Organization Detai ls LastModified Time None Recorded Concern Status LastModified by Organization Details LastModified Time None Recorded Advance Directives Directive None Recorded Payers Encounter Date Sequence Insurance Name Policy Number Policy Prasad Covered Member ID Prasad Member ID Guarantor Name 04/20/2024 1 [employer] [id number] Ailyn Tran [id number] Ailyn Tran Notes Date Note Type Note [...] avoid NSAIDs. Sammi Lee PA-C [address] [place] [address], [phone], [facility] 04/20/2024 16:58:10 OBGyn Episode No OBEpisode recorded.
--- OUTSIDE RECORDS SUMMARY | 2024-12-20 01:31 | XMS_ITS | Clinical Summary ---
Author Organization [facility] Address [facility] [place] [address] Care Team Providers Care Therapeutic Recreation Director Name Role Phone Carlos Enrique Posada MD Primary Care Provider [phone] Allergies Active Allergy Reactions Criticality Noted Date Comments Hydrocodone-Acetamino phen Other (see comment) 11/07/2021 Patient passes out Tramadol GI Upset 11/07/2021 Medications atenolol 50 MG tablet Take 50 mg by mouth daily. Active atorvastatin 20 MG tablet Take 20 mg by mouth daily. 09/15/2021 Active Cholecalciferol (VITAMIN D) 50 MCG (1999 UT) Cap Take 1 tablet by mouth daily. Active Continuous Blood Gluc Metal Crafts Teacher (GlowSTYLE HARINDER 2 READER) Device Inject 1 each [...] Department Care Team Description 12/07/2024 3:35 PM STITCHER OPERATOR - 12/07/2024 11:59 PM STITCHER OPERATOR Hospital Encounter [facility] [address] [place] [address] Sammi Camacho PA-C Discharge Disposition: Home or Self Care (Routine Discharge) 12/07/2024 Orders Only [facility] [place] [address] Sammi Camacho PA-C 12/07/2024 Travel from Last 3 Months Social History Tobacco Use Types Packs/Day Years Used Date Smoking Tobacco: Never Smokeless Tobacco: Never Alcohol Use Standard Drinks/Week Comments Yes 0 (1 standard drink = 0.6 oz pur e alcohol) rarely Comments Unknown Sex and Gender Information Value Date Recorded Sex Assigned at Female 12/07/2024 3:33 PM STITCHER OPERATOR Legal Sex Female 8:04 PM CDT Gender Identity Not on file Sexual Orientation Not on file Last Filed Vital Signs Vital Sign Reading Time Taken Comments Blood Pressure 104/78 01/02/2014 10:40 AM CDT Pulse 92 01/02/2014 10:40 AM CDT Temperature - - Respiratory Rate - - Oxygen Saturation - - Inhaled Oxygen Concentration - - Weight 89.8 kg (198 lb) 11/07/2021 9:40 AM STITCHER OPERATOR Height 165.1 cm (5' 5 ) 11/07/2021 9:40 AM STITCHER OPERATOR Body Mass Index 32.95 11/07/2021 9:40 AM STITCHER OPERATOR Plan of Treatment Health Maintenance Due Date [...] CBC W/DIFF AUTOMATED Routine 12/07/2024 4:10 PM STITCHER OPERATOR Chronic kidney disease, stage 3 unspecified (CMS/HCC HHS/HCC) RENAL FUNCTION PANEL Routine 12/07/2024 4:10 PM STITCHER OPERATOR Chronic kidney disease, stage 3 unspecified (CMS/HCC HHS/HCC) ALBUMIN URINE RANDOM W/CREATININE Routine 12/07/2024 4:05 PM STITCHER OPERATOR Chronic kidney disease, stage 3 unspecified (CMS/HCC HHS/HCC) HEPATITIS C ANTIBODY Routine 03/05/2022 2:32 PM CDT Proteinuria from Last 3 Months or Most Recently Relevant to Health Maintenance Results * (ABNORMAL) RENAL FUNCTION PANEL (12/07/2024 4:10 PM STITCHER OPERATOR) SODIUM S/P/B 136 136 - 145 MMOL/L 12/07/2024 4:37 PM STITCHER OPERATOR [facility] POTASSIUM S/P/B 4.8 3.5 - 5.1 MMOL/L 12/07/2024 4:37 PM [facility] CHLORIDE S/P/B 101 98 - 107 MMOL/L 12/07/2024 4:37 PM [facility] CO2 24.7 21.0 - 32.0 MMOL/L 12/07/2024 4:37 PM [facility] GLUCOSE 420(H) 70 - 99 MG/DL 12/07/2024 4:37 PM [facility] Comment: FASTING GLUCOSE 100 TO 125 MG/DL IS CONSISTENT WITH IMPAIRED FASTING GLUCOSE. FASTING GLUCOSE >125 MG/DL IS CONSISTENT WITH DIABETES. RANDOM GLUCOSE >200 MG/DL WITH HYPERGLYCEMIC SYMPTOMS IS CONSISTENT WITH DIABETES. PER ADA GUIDELINES BUN 35(H) 6 - 24 MG/DL 12/07/2024 4:37 PM [facility] CREATININE S/P/B 2.30(H) 0.55 - 1.02 MG/DL 12/07/2024 4:37 PM [facility] CALCIUM S/P/B 8.0(L) 8.4 - 10.5 MG/DL 12/07/2024 4:37 PM [facility] ALBUMIN S/P/B 2.4(L) 3.4 - 5.0 G/DL 12/07/2024 4:37 PM [facility] PHOSPHORUS 4.3 2.6 - 4.7 MG/DL 12/07/2024 4:37 PM [facility] ANION GAP 10.3 5.0 - 15.0 MMOL/L 12/07/2024 4:37 PM [facility] OSMOLALITY (CALC) 308 MOSM/KG 025 4:37 PM [facility] Comment:REFERENCE RANGE NOT ESTABLISHED GFR ESTIMATE 27(L) >89 ML/MIN/1. 73 M2 12/07/2024 4:37 PM [facility] GFR NOTES GFR REFERENCE S: 12/07/2024 4:37 PM [facility] Comment: THE ESTIMATED GFR IS CALCULATED [...] FAILURE: <15 ml/min/1.73 m2 12/07/2024 4:10 PM STITCHER OPERATOR us Sammi Camacho PA-C LABORATORY Final Resu lt [facility] [address] [email or web address] [address], * (ABNORMAL) CBC W/DIFF AUTOMATED (12/07/2024 4:10 PM STITCHER OPERATOR) WBC 10.59 4.00 - 10.80 x10'3/uL 12/07/2024 4:22 PM STITCHER OPERATOR [facility] RBC 3.53(L) 4.10 - 5.40 x10'6/uL 12/07/2024 4:22 PM [facility] HGB 10.4(L) 12.0 - 16.0 G/DL 12/07/2024 4:22 PM STITCHER OPERATOR [facility] HCT 31.2(L) 36.0 - 47.0 % 12/07/2024 4:22 PM [facility] MCV 88.4 78.0 - 100.0 FL 12/07/2024 4:22 PM STITCHER OPERATOR [facility] MCH 29.5 27.0 - 31.0 PG 12/07/2024 4:22 PM [facility] MCHC 33.3 33.0 - 36.0 G/DL 12/07/2024 4:22 PM [facility] RDW 12.3 11.5 - 14.5 % 12/07/2024 4:22 PM [facility] PLT 387(H) 150 - 350 x10'3/uL 12/07/2024 4:22 PM [facility] MPV 10.1 7.4 - 10.4 FL 12/07/2024 4:22 PM [facility] CBC COMMENT NORMAL REFERENCE RANGE NOT ESTABLISHED FOR THE PROPORTIONAL LEUKOCYTE DIFFERENTIAL. 12/07/2024 4:22 PM [facility] NEUTROPHILS % 68.9 % 12/07/2024 4:22 PM STITCHER OPERATOR [facility] LYMPHOCYTES % 19.2 % 12/07/2024 4:22 PM STITCHER OPERATOR [facility] MONOCYTES % 5.7 % 12/07/2024 4:22 PM STITCHER OPERATOR [facility] EOSINOPHILS % 5.3 % 12/07/2024 4:22 PM STITCHER OPERATOR [facility] BASOPHILS % 0.5 % 12/07/2024 4:22 PM STITCHER OPERATOR [facility] IMMATURE GRANS % 0.4 % 12/07/19 4:22 PM STITCHER OPERATOR [facility] NRBC % 0.0 % 12/07/2024 4:22 PM STITCHER OPERATOR [facility] ABS. NEUTROPHILS 7.31 1.60 - 8.30 x10'3/uL 12/07/2024 4:22 PM STITCHER OPERATOR [facility] ABS. LYMPHOCYTES 2.03 0.80 - 4.70 x10'3/uL 12/07/2024 4:22 PM STITCHER OPERATOR [facility] ABS. MONOCYTES 0.60 0.00 - 1.50 x10'3/uL 12/07/2024 4:22 PM STITCHER OPERATOR [facility] ABS. EOSINOPHILS 0.56(H) 0.00 - 0.40 x10'3/uL 12/07/2024 4:22 PM STITCHER OPERATOR [facility] ABS. BASOPHILS 0.05 0.00 - 0.20 x10'3/uL 12/07/2024 4:22 PM STITCHER OPERATOR [facility] ABS. IMMATURE GRANULOCYTES 0.04(H) 0.00 - 0.03 x10'3/uL 12/07/2024 4:22 PM STITCHER OPERATOR [facility] ABS. NUCLEATED RBC'S 0.00 0.00 - 0.01 x10'3/uL 12/07/2024 4:22 PM STITCHER OPERATOR [facility] 12/07/2024 4:10 PM STITCHER OPERATOR us Sammi Camacho PA-C LABORATORY Final Resu lt [facility] [address] [place] [address], [place] [phone] * (ABNORMAL) ALBUMIN CREATININE URINE RANDOM (12/07/2024 4:05 PM STITCHER OPERATOR) Pathologist [facility] [place] ALBUMIN (U) 501.3 MG/DL 12/07/2024 6:25 PM STITCHER OPERATOR [facility] Comment:REFERENCE RANGE NOT ESTABLISHED CREATININE RANDOM (U) 89.6 MG/DL 12/07/2024 6:25 PM STITCHER OPERATOR [facility] Comment:REFERENCE RANGE NOT ESTABLISHED ALBUMIN/CREAT RATIO 5,594.9(H) <30 MG/G 12/07/2024 6:25 PM STITCHER OPERATOR [facility] Comment: NORMAL TO MILDLY INCREASED ALBUMINURIA: <30 MG/G MODERATELY INCREASED ALBUMINURIA: 30 TO 300 MG/G SEVERELY INCREASED ALBUMINURIA: >300 MG/G PER KDIGO URINE SPECIMEN / Unknown 12/07/2024 4:05 PM STITCHER OPERATOR Sammi Camacho PA-C URINE ORDERABLES Final Res ult Performing Organization Address City/[facility]/ZIP Co de Phone Number [facility] Counts include 234 beds at the [facility] [place] [address], [place] [phone] * HEPATITIS C ANTIBODY (03/05/2022 2:32 PM CDT) [facility] HEPATITIS C AB NON-REACTI VE NON-REACT ANTONETTE 03/06/2022 1:35 PM CDT [facility] Comment: ANTIBODIES TO HCV NOT DETECTED. DOES NOT EXCLUDE THE POSSIBILITY OF EXPOSURE TO HCV. 03/05/2022 2:32 PM CDT Evon Conley MD LABORATORY Final Resu lt Performing Organization Address City/[facility]/ZIP Co de Phone Number [facility] [address] [place] [address], [place] [phone] from Last 3 Months or Most Recently Relevant to Health Maintenance Insurance [employer] Care Teams Therapeutic Recreation Director Relationship Specialty Start Date End Date Carlos Enrique Posada MD [address] [place] [id number] PCP - General INTERNAL MEDICINE 10/30/21
[2024-12-20] MEDS: LACTATED RINGERS 1,000 ML 30 ML IV CONT ×2 (08:35→11:50)
[2024-12-20 08:38] LABS: Glucose Point of Care 137 mg/dl (65-105)
[2024-12-20] MEDS: ACETAMINOPHEN 500 MG TABLET 1000 MG PO (08:41)
[2024-12-20] MEDS: KETOROLAC 15 MG/ML VIAL (*BKC) IV PUSH (08:42)
[2024-12-20 09:21] LABS: Glucose Point of Care 195 mg/dl (65-105)
--- NOTE | 2024-12-20 09:47 | SUR.PREOP ---
0915: PT UP TO BATHROOM AN HAD SYNCOPAL EPISODE; REPEAT POC GLUCOSE 195. BP 105/46. RETURNED TO BED SUPINE AND BOLUSED 250ML LR. 0945: PT STATES FEELS BETTER. INSULIN PUMP IN PLACE/FUNCTIONAL PER PT.
--- NOTE | 2024-12-20 09:59 | PM.IMHP ---
H&P: HPI History of Present Illness Date/Time: 12/20/24 09:59 Chief Complaint: Ovarian cyst Narrative: She is here for scheduled removal of left ovarian cyst, over 5cm that has been present since 2022. She has been on ovarian suppression and no change in size. Ca125 has been normal. She denies pain. She has been given option of laparoscopic removal or continued observation. She has opted for laparoscopic removal. Review of Systems Review of Systems: All systems reviewed & are unremarkable except as noted in HPI and below Cardiovascular: Cardiovascular: Reports no additional cardiovascular complaints, Denies chest pain and Denies dyspnea Respiratory: Respiratory: Reports no additional respiratory complaints and Denies dyspnea Gastrointestinal: Gastrointestinal: Reports abdominal pain, Denies change in bowel habits, Denies diarrhea, Denies nausea and Denies vomiting Genitourinary: Genitourinary: Reports pelvic pain Musculoskeletal: Musculoskeletal: Reports back pain Integumentary/Breasts: Skin/Breast: Reports system reviewed and no additional complaints, except as docu Neurologic: Reports system reviewed and no additional complaints, except as documented PMFSH Past Medical History Medical History Body mass index [BMI] 31.0-31.9, adult (03/15/19) Hypertension Kidney disease Hyperlipidemia Type II diabetes mellitus Depression Thyroid disorder Surgical History Surgical History Hx laparoscopic cholecystectomy 08/28/24 Dr. Funez History of eye surgery H/O LEEP 08/24/2018 Family History Family History Grandparent Family history of thyroid disease Family history of Alzheimer's disease Diabetes mellitus Family history of Parkinson's disease Father Hypertension Family history of type 2 diabetes mellitus Sibling Family history of attention deficit hyperactivity disorder (ADHD) Mother Uterine cancer Social History Social History Smoking status: Never smoker Second hand tobacco smoke exposure: No Alcohol intake: current Drinks per week: 0 Alcohol use details: RARE Substance use: never Substance use type: does not use Do You Feel Safe in your Home?: Yes Lack of Transportation: No Lack of Food: Never True Current Housing: I Have Housing Concerned About Future Housing: No Difficulty Paying Gas/Electric Bills: No Difficulty Paying for Meds: No Currently Unemployed: No Education: High School Diploma/GED Difficulty w/ Childcare or Family Care: No Living arrangements: alone Occupation/Education: occupation Gender identity (if verbalized by the patient): Female Sexual Orientation (if Verbalized by the Patient): Straight or Heterosexual Spiritual care concerns: No Meds Home Medications and Allergies Home Medications ?Medication ?Instructions ?Recorded ?Confirmed ?Type cholecalciferol (vitamin D3) 10 25 mcg PO QAM 10/05/19 12/20/24 History mcg (400 unit) capsule escitalopram oxalate 5 mg tablet 10 mg PO QAM 10/05/19 12/20/24 History blood-glucose sensor (Dexcom G6 01/26/23 09/08/24 History Sensor device) levonorgestrel (Mirena) 1 device intrauterine ONCE 01/26/23 12/12/24 History torsemide 20 mg tablet 20 mg PO QAM 01/26/23 12/12/24 History verapamil 120 mg 24 hr 180 mg PO QAM 01/26/23 12/20/24 History capsule,extended release insulin aspart U-100 100 unit/mL 1 sliding scale dose subcut 02/04/24 12/12/24 History subcutaneous solution (Novolog USEASDIRECTD U-100 Insulin aspart) atenolol 50 mg tablet 50 mg PO QHS 07/19/24 12/20/24 History famotidine 40 mg tablet 40 mg PO BID 07/19/24 12/12/24 History levothyroxine 137 mcg tablet 137 mcg PO QAM 07/19/24 12/20/24 History (Synthroid) spironolactone 25 mg tablet 25 mg PO DAILY 07/19/24 12/12/24 History atorvastatin 40 mg tablet 40 mg PO QHS #30 tabs 07/21/24 12/20/24 Rx hydralazine 25 mg tablet 50 mg (2 x 25 mg) PO TID #90 tabs 07/21/24 12/12/24 Rx cyanocobalamin (vitamin B-12) 1,000 mcg PO DAILY 08/24/24 12/20/24 History 1,000 mcg capsule Allergies Allergy/AdvReac Type Severity Reaction Status Date / Time codeine Allergy Severe Vomiting Verified 12/20/24 09:32 hydrocodone Allergy Severe Other Verified 12/20/24 09:32 ibuprofen Allergy Severe Unknown Verified 12/20/24 09:32 tramadol Allergy Severe Vomiting Verified 12/20/24 09:32 oxycodone Allergy Intermediate PASS OUT Verified 12/20/24 09:32 Vital Signs Vital Signs - 24 hr 12/20/24 08:30 Temperature 97.7 F Pulse Rate 79 Respiratory Rate 20 Blood Pressure 164/90 H Pulse Oximetry 100 Oxygen Delivery Room Air Exam Const: Orientation/consciousness: oriented to person and oriented to place HENMT: Head: normal to inspection Eyes: General: appearance normal, both eyes and all related structures Resp: Effort & Inspection: normal respiratory effort Auscultation: clear to auscultation bilaterally Cardio: Rate: regular rate Rhythm: regular rhythm GI: Inspection: normal to inspection GI Palp: No Rebound tenderness present Neuro: General: oriented to person and oriented to place Cognition (Neuro): normal cognition Extrem: General: normal to inspection Psych: Appearance: grossly normal and well kempt Assessment and Plan Assessment and plan (1) Left ovarian cyst: Code(s): N83.202 - Unspecified ovarian cyst, left side Status: Acute Assessment and Plan: Will proceed with laparoscopic removal of left ovarian cyst.
--- NOTE | 2024-12-20 10:06 | WPDHPUPDATE1 ---
History and Physical Update Update Date/Time: 12/20/24 10:06 History and Physical has been reviewed, including an updated exam of the patient. There are NO changes in the patient's condition. Risks, benefits, and alternatives have been discussed and questions answered. Patient agrees to proceed with procedure.
--- NOTE | 2024-12-20 10:16 | P.PNAN_ITS ---
Anes - Initial Pre Proc Eval Procedure: Operation Date: 12/20/24 10:00 Proposed Procedures p Laparoscopic Ovarian Cystectomy - Farhad Elizabeth MD Date/Time: 12/20/24 10:16 Surgeon: Farhad Elizabeth MD Pre Op Diagnosis: ovarian cyst Patient Data Age: 39 Gender: F Height: 1.65 m Weight: 104.3 kg Last Vital Signs Temp 36.5 C 12/20/24 08:30 Pulse 79 12/20/24 08:30 Resp 20 12/20/24 08:30 BP 164/90 H 12/20/24 08:30 Pulse Ox 100 12/20/24 08:30 O2 Del Method Room Air 12/20/24 08:30 Allergies Allergy/AdvReac Type Severity Reaction Status Date / Time codeine Allergy Severe Vomiting Verified 12/20/24 09:32 hydrocodone Allergy Severe Other Verified 12/20/24 09:32 ibuprofen Allergy Severe Unknown Verified 12/20/24 09:32 tramadol Allergy Severe Vomiting Verified 12/20/24 09:32 oxycodone Allergy Intermediate PASS OUT Verified 12/20/24 09:32 Home Medications ?Medication ?Instructions ?Recorded ?Confirmed ?Type cholecalciferol (vitamin D3) 10 25 mcg PO QAM 10/05/19 12/20/24 History mcg (400 unit) capsule escitalopram oxalate 5 mg tablet 10 mg PO QAM 10/05/19 12/20/24 History blood-glucose sensor (Dexcom G6 01/26/23 09/08/24 History Sensor device) levonorgestrel (Mirena) 1 device intrauterine ONCE 01/26/23 12/12/24 History torsemide 20 mg tablet 20 mg PO QAM 01/26/23 12/12/24 History verapamil 120 mg 24 hr 180 mg PO QAM 01/26/23 12/20/24 History capsule,extended release insulin aspart U-100 100 unit/mL 1 sliding scale dose subcut 02/04/24 12/12/24 History subcutaneous solution (Novolog USEASDIRECTD U-100 Insulin aspart) atenolol 50 mg tablet 50 mg PO QHS 07/19/24 12/20/24 History famotidine 40 mg tablet 40 mg PO BID 07/19/24 12/12/24 History levothyroxine 137 mcg tablet 137 mcg PO QAM 07/19/24 12/20/24 History (Synthroid) spironolactone 25 mg tablet 25 mg PO DAILY 07/19/24 12/12/24 History atorvastatin 40 mg tablet 40 mg PO QHS #30 tabs 07/21/24 12/20/24 Rx hydralazine 25 mg tablet 50 mg (2 x 25 mg) PO TID #90 tabs 07/21/24 12/12/24 Rx cyanocobalamin (vitamin B-12) 1,000 mcg PO DAILY 08/24/24 12/20/24 History 1,000 mcg capsule Laboratory Tests 12/20/24 12/20/24 08:33 09:18 POC Capillary Glucose 137 H mg/dl 195 H mg/dl (65-105) (65-105) Patient hx anesthesia problems: none Family hx anesthesia problems: none Results Review: All pre-operative results and documents have been reviewed as part of the pre- operative evaluation. [facility] Past Medical History Medical History Body mass index [BMI] 31.0-31.9, adult (03/15/19) Hypertension Kidney disease Hyperlipidemia Type II diabetes mellitus Depression Thyroid disorder Surgical History Surgical History Hx laparoscopic cholecystectomy 08/28/24 Dr. Funez History of eye surgery H/O LEEP 08/24/2018 Family History Family History Grandparent Family history of thyroid disease Family history of Alzheimer's disease Diabetes mellitus Family history of Parkinson's disease Father Hypertension Family history of type 2 diabetes mellitus Sibling Family history of attention deficit hyperactivity disorder (ADHD) Mother Uterine cancer Social History Social History Smoking status: Never smoker Second hand tobacco smoke exposure: No Alcohol intake: current Drinks per week: 0 Alcohol use details: RARE Substance use: never Substance use type: does not use Do You Feel Safe in your Home?: Yes Lack of Transportation: No Lack of Food: Never True Current Housing: I Have Housing Concerned About Future Housing: No Difficulty Paying Gas/Electric Bills: No Difficulty Paying for Meds: No Currently Unemployed: No Education: High School Diploma/GED Difficulty w/ Childcare or Family Care: No Living arrangements: alone Occupation/Education: occupation Gender identity (if verbalized by the patient): Female Sexual Orientation (if Verbalized by the Patient): Straight or Heterosexual Spiritual care concerns: No Anes - Eval Final PreProcedure Day of Procedure 12/20/24 10:16 Patient weight: obese Heart: regular rate and rhythm Lungs: clear to auscultation Airway: Mallampati scale class II Neurological: alert and oriented Last oral intake: >/= 8 hours ASA classification: III Emergent: no Anesthetic plan: proceed Anesthesia type and monitoring: general ETT and standard monitoring Results Review: All pre-operative results and documents have been reviewed as part of the pre- operative evaluation. Informed Consent: The patient's anesthetic plan and its attendant risks and benefits were discussed with the patient/family/POA. Questions were solicited and answers provided to the satisfaction of the patient/family/POA.
[2024-12-20] MEDS: ceFAZolin 2 GM/D5W 50 ML 2 GM/50 ML BAG IVPB (10:23)
[2024-12-20] MEDS: BUPivacaine HCL 0.5% PF 30 ML VIAL 15 ML INFILTRATE (10:53)
[2024-12-20 11:56] LABS: Glucose Point of Care 227 mg/dl (65-105)
[2024-12-20] MEDS: ONDANSETRON INJ 4 MG/2 ML VIAL IV PUSH (12:20)
--- NOTE | 2024-12-21 08:30 | W.PM.PROC2 ---
Procedure Note - Detailed Date of Procedure 12/21/24 Pre-op Diagnosis left ovarian cyst Post-op Diagnosis Same Procedure Performed Laparoscopic ovarian cystectomy Surgeon Farhad Elizabeth MD Anesthesia General Indications Persistant 5 cm cyst on left no resolution with ovarian suppression Findings Large left ovarian cyst Description of Procedure After informed consent was obtained patient was taken to the operating room and general endotracheal anesthesia was administered. She was placed in low lithotomy need prep prepped sterile fashion. Attention was turned to the vagina speculum inserted single-tooth tenaculum placed on anterior lip of the cervix. Fruita uterine manipulator placed into the cervical canal. The speculum was removed. Attention was then turned to the abdomen. With sterile gloves a horizontalincision was made at the umbilicus and a Veress needle was inserted into the abdomen confirmation into the abdomen obtained with free flow of fluid and normal peritoneal pressures. A pneumoperitoneum of 15 mm per mercury was obtained. The 5 mm port was inserted under laparoscopic visualization. Patient was placed in Trendelenburg position. Attention was turned to the left side of the abdomen and a 5 mm port was inserted under laparoscopic visualization. The pelvic organs were visualized. Attention was turned to the right side of the abdomen and another 5 mm port was inserted under laparoscopic visualization. The cyst comprised the left ovary. An incision was made in the cyst to drain fluid to grasp it ovary. Clear fluid noted. Fluid obtained to be sent for histology. The ligature was used to ligate distal tube attached to ovary and the ovary. Hemostasis noted at site. The cyst placed in endocath bag. The right incision was extended at fascia and cyst was removed. The pneumo released. The fascia closed with o vicryl at the right incision. the skin incisions were closed in a subcuticular fashion with 4 O Vicryl. Estimated Blood Loss 5 Packing No Pathology Yes (cyst fluid and left cyst with ovary) Complications No immediate complications Condition Stable Disposition Same day [facility] Billing Surgery - Charge Forward: Surgery Billing
== END 2024-12-20 13:49 | disposition home or self-care (01) ==
PROVIDERS: PCP Internal Medicine; Visit Provider Obstetrics & Gynecology
PROC: (CPT 49320; principal; 2024-12-20 10:00)
DX: D27.1 Benign neoplasm of left ovary (principal); N83.8 Other noninflammatory disorders of ovary, fallopian tube and broad ligament; D76.3 Other histiocytosis syndromes; E78.5 Hyperlipidemia, unspecified; I10 Essential (primary) hypertension; E11.9 Type 2 diabetes mellitus without complications; F32.A Depression, unspecified; E07.9 Disorder of thyroid, unspecified; N28.9 Disorder of kidney and ureter, unspecified; E66.9 Obesity, unspecified; Z68.38 Body mass index [BMI] 38.0-38.9, adult; Z79.4 Long term (current) use of insulin; Z98.890 Other specified postprocedural states; Z90.49 Acquired absence of other specified parts of digestive tract; Z80.49 Family history of malignant neoplasm of other genital organs
CPT/HCPCS: 58662; 82948; 88108; 88305; A9270; J0690; J1885; J2003; J2250; J2405; J2704; J3010; J7120

== ENCOUNTER 2025-03-29 15:13 | Outpatient (RCR) | payer OTHER, SELFPAY | END 2025-06-27 23:59 | disposition home or self-care (01) | LOC: ANHDMC 15:13 | PROVIDERS: Visit Provider Nurse Practitioner Family | DX: E11.65 Type 2 diabetes mellitus with hyperglycemia (principal); Z71.89 Other specified counseling | CPT/HCPCS: G0108 ==